=== PATIENT | male | born 1955 | race Two or more races ===

== ENCOUNTER 2020-05-05 00:44 | Inpatient (IN) | payer OTHER ==
[2020-05-05] MEDS ORDERED: NICOTINE POLACRILEX 2 MG GUM BUC PRN (01:45)
[2020-05-05] MEDS ORDERED: ACETAMINOPHEN 325 MG TABLET (FP) PO PRN ×2 (01:45)
[2020-05-05] MEDS ORDERED: MAG HYDROX/AL HYDROX/SIMETH 30 ML UNIT-DOSE CUP PO PRN (01:45)
[2020-05-05] MEDS ORDERED: MAGNESIUM CITRATE 300 ML BOTTLE PO PRN (01:45)
[2020-05-05] MEDS ORDERED: ONDANSETRON *ODT* 4 MG TABLET SL PRN (01:45)
[2020-05-05] MEDS ORDERED: MENTHOL/PHENOL 1 EACH UD MM PRN (01:45)
[2020-05-05] MEDS ORDERED: BISMUTH SUBSALICYLATE 524 MG/30 ML UD PO PRN (01:45)
[2020-05-05] MEDS ORDERED: MAGNESIUM HYDROX 2400MG/30ML ORAL SUSPENSION 30 ML CUP PO PRN (01:45)
[2020-05-05] MEDS ORDERED: METHADONE HCL 10 MG TABLET (FOR DETOX USE ONLY) PO ONE (01:50)
[2020-05-05] MEDS ORDERED: chlordiazePOXIDE HCL 25 MG CAPSULE PO PRN (01:50)
[2020-05-05 01:51] VITALS: BMI 39.3
[2020-05-05] MEDS ORDERED: METHADONE HCL 10 MG TABLET (FOR DETOX USE ONLY) ONE (02:55)
[2020-05-05] MEDS ORDERED: chlordiazePOXIDE HCL 25 MG CAPSULE ONE (05:40)
[2020-05-05] MEDS: chlordiazePOXIDE HCL 25 MG CAPSULE PO SCH ×4 (05:41→22:20)
[2020-05-05] MEDS: METHOCARBAMOL 500 MG TABLET PO PRN (10:29)
[2020-05-05] MEDS: IBUPROFEN 400 MG TABLET (FP) PO PRN (10:29)
[2020-05-05] MEDS: NICOTINE 21 MG/24 HOURS TOPICAL PATCH TD SCH (10:30)
[2020-05-05] MEDS: PRENATAL VITAMINS W/ FOLIC ACID TABLET (FP) PO SCH (10:30)
[2020-05-05] MEDS ORDERED: BENZOCAINE/MENTH/CETYLPYRD CL 1 EACH LOZENGE MM PRN (11:05)
[2020-05-05 13:45] LABS: POTASSIUM 3.4 mmol/L (3.5-5.1)
[2020-05-05 13:46] LABS: HEMATOCRIT 33.9 % (35.4-49); HEMOGLOBIN 10.9 GM/dL (11.7-16.9); MCH 28.6 pg (25.7-33.7); MCHC 32.2 g/dl (32.0-35.9); MEAN CELL VOLUME 88.8 fl (80-96); MEAN PLT VOLUME 8.6 fl (7.5-11.1); PLATELET COUNT 162 K/MM3 (134-434); RBC 3.82 M/mm3 (4.00-5.60); RDW 17.1 % (11.9-15.9); WHITE BLOOD COUNT 5.6 K/mm3 (4.0-10.0)
[2020-05-05 14:05] LABS: ALBUMIN 3.3 g/dl (3.4-5.0); BLOOD UREA NITROGEN 10.3 mg/dL (7-18); CALCIUM 8.6 mg/dL (8.5-10.1)
[2020-05-05 14:08] LABS: BILIRUBIN,TOTAL 0.4 mg/dL (0.2-1); CREATININE 0.8 mg/dL (0.55-1.3)
[2020-05-05 14:09] LABS: TOT PROT 6.1 g/dl (6.4-8.2)
[2020-05-05 14:11] LABS: SYPHILIS W/ RPR CONF NON-REACTIVE (NONREACTIVE)
[2020-05-05 14:40] LABS: HIV INTERPRETATION NEGATIVE (NEGATIVE)
[2020-05-05] MEDS ORDERED: POTASSIUM CHLORIDE ORAL LIQUID 20 MEQ/15 ML PO ONE (15:05)
[2020-05-05] MEDS: cloNIDine HCL 0.1 MG TABLET PO PRN (15:30)
[2020-05-05] MEDS: THIAMINE HCL 100 MG TABLET (FP) PO SCH (22:19)
[2020-05-05] MEDS: AMITRIPTYLINE HCL 25 MG TABLET PO SCH (22:19)
[2020-05-05] MEDS: POTASSIUM CHLORIDE ORAL LIQUID 20 MEQ/15 ML PO SCH (22:20)
[2020-05-05] MEDS: MELATONIN 5 MG TABLETS PO SCH (22:25)
[2020-05-06] MEDS: chlordiazePOXIDE HCL 25 MG CAPSULE PO SCH ×4 (06:35→22:54)
[2020-05-06] MEDS: METHOCARBAMOL 500 MG TABLET PO PRN (06:36)
[2020-05-06] MEDS: IBUPROFEN 400 MG TABLET (FP) PO PRN (06:39)
[2020-05-06] MEDS ORDERED: METHADONE HCL 5 MG TABLET (FOR DETOX USE ONLY) ONE (09:16)
[2020-05-06] MEDS ORDERED: METHADONE HCL 10 MG TABLET (FOR DETOX USE ONLY) ONE (09:17)
[2020-05-06] MEDS ORDERED: METHADONE (DETOX) 20 MG, METHADONE (DETOX) 5 MG PO ONE (10:00)
[2020-05-06] MEDS: PRENATAL VITAMINS W/ FOLIC ACID TABLET (FP) PO SCH (10:33)
[2020-05-06] MEDS: NICOTINE 21 MG/24 HOURS TOPICAL PATCH TD SCH (10:33)
[2020-05-06 11:17] LABS: POTASSIUM 4.4 mmol/L (3.5-5.1)
[2020-05-06 11:22] LABS: ALBUMIN 3.4 g/dl (3.4-5.0); BLOOD UREA NITROGEN 11.8 mg/dL (7-18); CALCIUM 9.1 mg/dL (8.5-10.1)
[2020-05-06 11:26] LABS: CREATININE 0.8 mg/dL (0.55-1.3)
[2020-05-06 11:27] LABS: TOT PROT 6.5 g/dl (6.4-8.2)
[2020-05-06 11:32] LABS: BILIRUBIN,TOTAL 1.2 mg/dL (0.2-1)
[2020-05-06] MEDS: POTASSIUM CHLORIDE TABS 20 MEQ TABLET.ER (FP) PO SCH ×2 (11:41→22:54)
[2020-05-06] MEDS: POTASSIUM CHLORIDE ORAL LIQUID 20 MEQ/15 ML PO SCH (11:43)
[2020-05-06] MEDS: THIAMINE HCL 100 MG TABLET (FP) PO SCH (22:53)
[2020-05-06] MEDS: AMITRIPTYLINE HCL 25 MG TABLET PO SCH (22:53)
[2020-05-06] MEDS: cloNIDine HCL 0.1 MG TABLET PO PRN (22:55)
[2020-05-06] MEDS: MELATONIN 5 MG TABLETS PO SCH (22:55)
[2020-05-07] MEDS ORDERED: chlordiazePOXIDE HCL 10 MG CAPSULE PO PRN
[2020-05-07] MEDS: chlordiazePOXIDE HCL 10 MG CAPSULE PO SCH ×4 (05:23→22:44)
[2020-05-07] MEDS: METHOCARBAMOL 500 MG TABLET PO PRN (05:25)
[2020-05-07] MEDS: IBUPROFEN 400 MG TABLET (FP) PO PRN (05:25)
[2020-05-07] MEDS ORDERED: METHADONE HCL 10 MG TABLET (FOR DETOX USE ONLY) PO ONE (10:00)
[2020-05-07] MEDS: PRENATAL VITAMINS W/ FOLIC ACID TABLET (FP) PO SCH (10:27)
[2020-05-07] MEDS: NICOTINE 21 MG/24 HOURS TOPICAL PATCH TD SCH (10:28)
[2020-05-07] MEDS: cloNIDine HCL 0.1 MG TABLET PO PRN (18:49)
[2020-05-07] MEDS: AMITRIPTYLINE HCL 25 MG TABLET PO SCH (22:44)
[2020-05-07] MEDS: THIAMINE HCL 100 MG TABLET (FP) PO SCH (22:45)
[2020-05-07] MEDS: MELATONIN 5 MG TABLETS PO SCH (22:45)
[2020-05-08] MEDS: METHOCARBAMOL 500 MG TABLET PO PRN ×2 (05:49→22:45)
[2020-05-08] MEDS: chlordiazePOXIDE HCL 10 MG CAPSULE PO SCH ×2 (05:49→18:13)
[2020-05-08] MEDS: IBUPROFEN 400 MG TABLET (FP) PO PRN ×2 (05:50→22:44)
[2020-05-08] MEDS ORDERED: METHADONE HCL 10 MG TABLET (FOR DETOX USE ONLY) ONE (09:32)
[2020-05-08] MEDS ORDERED: METHADONE HCL 5 MG TABLET (FOR DETOX USE ONLY) ONE (09:32)
[2020-05-08] MEDS ORDERED: METHADONE (DETOX) 10 MG, METHADONE (DETOX) 5 MG PO ONE (10:00)
[2020-05-08] MEDS: PRENATAL VITAMINS W/ FOLIC ACID TABLET (FP) PO SCH (10:28)
[2020-05-08] MEDS: NICOTINE 21 MG/24 HOURS TOPICAL PATCH TD SCH (10:28)
[2020-05-08] MEDS: hydrOXYzine PAMOATE 25 MG CAPSULE (FP) PO PRN (10:29)
[2020-05-08] MEDS ORDERED: cloNIDine HCL 0.1 MG TABLET PO PRN (17:19)
[2020-05-08] MEDS: THIAMINE HCL 100 MG TABLET (FP) PO SCH (22:43)
[2020-05-08] MEDS: MELATONIN 5 MG TABLETS PO SCH (22:43)
[2020-05-08] MEDS: AMITRIPTYLINE HCL 25 MG TABLET PO SCH (23:54)
[2020-05-09] MEDS ORDERED: chlordiazePOXIDE HCL 10 MG CAPSULE PO ONE (05:00)
[2020-05-09] MEDS ORDERED: METHADONE HCL 10 MG TABLET (FOR DETOX USE ONLY) PO ONE (10:00)
[2020-05-09] MEDS: NICOTINE 21 MG/24 HOURS TOPICAL PATCH TD SCH (10:39)
[2020-05-09] MEDS: PRENATAL VITAMINS W/ FOLIC ACID TABLET (FP) PO SCH (10:39)
[2020-05-09] MEDS: IBUPROFEN 400 MG TABLET (FP) PO PRN (10:42)
[2020-05-09] MEDS: METHOCARBAMOL 500 MG TABLET PO PRN (10:42)
[2020-05-09] MEDS: hydrOXYzine PAMOATE 25 MG CAPSULE (FP) PO PRN (10:42)
[2020-05-09] MEDS: FERROUS SO4 325 MG TABLET (FP) PO SCH (14:20)
[2020-05-09] MEDS: MELATONIN 5 MG TABLETS PO SCH (22:12)
[2020-05-09] MEDS: THIAMINE HCL 100 MG TABLET (FP) PO SCH (22:12)
[2020-05-09] MEDS: AMITRIPTYLINE HCL 25 MG TABLET PO SCH (22:12)
[2020-05-09 23:10] VITALS: TEMP 96.9
[2020-05-10] MEDS ORDERED: METHADONE HCL 5 MG TABLET (FOR DETOX USE ONLY) PO ONE (06:00)
[2020-05-10 06:13] VITALS: BP 124/64; PULSE 73
[2020-05-10] MEDS: NICOTINE 21 MG/24 HOURS TOPICAL PATCH TD SCH (11:10)
[2020-05-10] MEDS: PRENATAL VITAMINS W/ FOLIC ACID TABLET (FP) PO SCH (11:10)
[2020-05-10] MEDS: FERROUS SO4 325 MG TABLET (FP) PO SCH (11:10)
== END 2020-05-10 11:17 | disposition home or self-care (01) | DRG 897 ==
LOC: YASAS 00:44 → Y6N 07:09
PROVIDERS: ADMIT Allergy & Immunology; ATTEND Allergy & Immunology
PROC: HZ2ZZZZ Detoxification Services for Substance Abuse Treatment (ICD-10-PCS; principal; 2020-05-05)
DX: F11.23 Opioid dependence with withdrawal (principal); F19.282 Other psychoactive substance dependence with psychoactive substance-induced sleep disorder; F10.230 Alcohol dependence with withdrawal, uncomplicated; F17.210 Nicotine dependence, cigarettes, uncomplicated; F19.24 Other psychoactive substance dependence with psychoactive substance-induced mood disorder; F41.9 Anxiety disorder, unspecified; F41.0 Panic disorder [episodic paroxysmal anxiety]; G25.2 Other specified forms of tremor; I10 Essential (primary) hypertension; R56.9 Unspecified convulsions; M54.5 Low back pain; G89.29 Other chronic pain; Z96.653 Presence of artificial knee joint, bilateral; R26.89 Other abnormalities of gait and mobility; Z99.89 Dependence on other enabling machines and devices; E66.9 Obesity, unspecified; Z68.39 Body mass index [BMI] 39.0-39.9, adult; Z88.0 Allergy status to penicillin; Z91.011 Allergy to milk products; Z91.012 Allergy to eggs
CPT/HCPCS: 36415; 80053; 85027; 86780; 87389; 93005; 93010; C9803; J0735; U0003

== ENCOUNTER 2020-06-23 16:44 | Inpatient (IN) | payer OTHER ==
[2020-06-23] MEDS ORDERED: FUROSEMIDE 40 MG/4 ML INJECTABLE VIAL IVPUSH ONE (18:48)
[2020-06-23] MEDS ORDERED: LORazepam 2 MG/ML SDV VIAL IVPUSH ONE (18:48)
[2020-06-23] MEDS ORDERED: FUROSEMIDE 40 MG/4 ML INJECTABLE VIAL ONE (18:52)
[2020-06-23] MEDS ORDERED: LORazepam 2 MG/ML SDV VIAL ONE (18:52)
[2020-06-23 18:57] LABS: BASO % 0.6 % (0-2.0); EOS % 1.2 % (0-4.5); HEMATOCRIT 40.8 % (35.4-49); HEMOGLOBIN 12.9 GM/dL (11.7-16.9); LYMPH % 34.4 % (8-40); MCH 28.9 pg (25.7-33.7); MCHC 31.7 g/dl (32.0-35.9); MEAN CELL VOLUME 91.3 fl (80-96); MEAN PLT VOLUME 9.8 fl (7.5-11.1); MONO % 14.9 % (3.8-10.2); NEUT % 48.9 % (42.8-82.8); PLATELET COUNT 167 K/MM3 (134-434); RBC 4.47 M/mm3 (4.00-5.60); RDW 17.6 % (11.9-15.9); WHITE BLOOD COUNT 4.7 K/mm3 (4.0-10.0)
[2020-06-23 19:06] LABS: INR 0.91 (0.83-1.09); PROTHROMBIN TIME (PATIENT) 11.2 SEC (9.7-13.0)
[2020-06-23 19:08] LABS: ACTIVATED PTT 29.1 SECONDS (25.2-36.5)
[2020-06-23] MEDS ORDERED: cloNIDine HCL 0.1 MG TABLET PO ONE (19:09)
[2020-06-23] MEDS ORDERED: SODIUM CHLORIDE 500 ML IV STA (19:09)
[2020-06-23] MEDS ORDERED: DICYCLOMINE HCL 20 MG TABLET PO ONE (19:09)
[2020-06-23] MEDS ORDERED: ACETAMINOPHEN 500 MG TABLET (FP) PO ONE (19:14)
[2020-06-23 19:17] LABS: CHLORIDE 99 mmol/L (98-107); SODIUM 140 mmol/L (136-145)
[2020-06-23 19:20] LABS: ANION GAP 4 MMOL/L (8-16); BLOOD UREA NITROGEN 11.8 mg/dL (7-18); CALCIUM 9.1 mg/dL (8.5-10.1); CO2 37 mmol/L (21-32); LIPASE 189 U/L (73-393); MAGNESIUM 2.2 mg/dL (1.8-2.4)
[2020-06-23 19:21] LABS: GLUCOSE,RANDOM 86 mg/dL (74-106)
[2020-06-23] MEDS ORDERED: ACETAMINOPHEN 325 MG TABLET (FP) ONE (19:21)
[2020-06-23] MEDS ORDERED: cloNIDine HCL 0.1 MG TABLET ONE (19:21)
[2020-06-23] MEDS ORDERED: DICYCLOMINE HCL 10 MG CAPSULE ONE (19:22)
[2020-06-23 19:23] LABS: CREATININE 0.8 mg/dL (0.55-1.3); SGOT/AST 93 U/L (15-37); SGPT/ALT 129 U/L (13-61)
[2020-06-23 19:25] LABS: BILIRUBIN,TOTAL 0.6 mg/dL (0.2-1); TOT PROT 7.4 g/dl (6.4-8.2)
[2020-06-23 19:26] LABS: ALK PHOS 66 U/L (45-117)
[2020-06-23 19:49] LABS: PLATELET ESTIMATE NORMAL
[2020-06-24] MEDS ORDERED: LORazepam 1 MG TABLET PO PRN (01:57)
[2020-06-24] MEDS ORDERED: METHADONE HCL 10 MG TABLET (FOR DETOX USE ONLY) PO PRN (02:42)
[2020-06-24] MEDS ORDERED: METHADONE HCL 10 MG TABLET ONE (03:20)
[2020-06-24 04:44] VITALS: BMI 36.8
[2020-06-24] MEDS: LORazepam 1 MG TABLET PO SCH ×4 (05:48→22:07)
[2020-06-24 06:44] LABS: ARTERIAL BLD GAS O2 SATURATION 93.4 mmHg (95-98); ARTERIAL BLOOD GAS BASE EXCESS 8.9 mmol/L (-2-2); ARTERIAL BLOOD GAS PO2 67.1 mmHg (80-100); ARTERIAL BLOOD GAS pH 7.426 (7.350-7.450)
[2020-06-24] MEDS: cloNIDine HCL 0.1 MG TABLET PO SCH ×2 (09:59→22:06)
[2020-06-24] MEDS: ENOXAPARIN NA (PORCINE) 40 MG/0.4 ML DISP.SYRIN SQ SCH (09:59)
[2020-06-24 11:59] LABS: BASO % 0.5 % (0-2.0); EOS % 1.9 % (0-4.5); HEMOGLOBIN 12.4 GM/dL (11.7-16.9); LYMPH % 32.1 % (8-40); MCH 29.1 pg (25.7-33.7); MCHC 32.5 g/dl (32.0-35.9); MEAN CELL VOLUME 89.6 fl (80-96); MEAN PLT VOLUME 9.4 fl (7.5-11.1); MONO % 11.9 % (3.8-10.2); NEUT % 53.6 % (42.8-82.8); PLATELET COUNT 136 K/MM3 (134-434); RBC 4.24 M/mm3 (4.00-5.60); RDW 17.1 % (11.9-15.9); WHITE BLOOD COUNT 4.4 K/mm3 (4.0-10.0)
[2020-06-24 12:25] LABS: CALCIUM 8.6 mg/dL (8.5-10.1)
[2020-06-24 12:26] LABS: ALBUMIN 3.5 g/dl (3.4-5.0); BLOOD UREA NITROGEN 13.6 mg/dL (7-18); MAGNESIUM 1.8 mg/dL (1.8-2.4)
[2020-06-24 12:29] LABS: CREATININE 0.8 mg/dL (0.55-1.3); PHOSPHOROUS 3.8 mg/dL (2.5-4.9)
[2020-06-24 12:30] LABS: TOT PROT 6.4 g/dl (6.4-8.2)
[2020-06-24] MEDS ORDERED: POTASSIUM CHLORIDE TABS 20 MEQ TABLET.ER (FP) PO ONE (14:14)
[2020-06-25] MEDS ORDERED: MELATONIN 5 MG TABLETS PO ONE (01:51)
[2020-06-25] MEDS: LORazepam 1 MG TABLET PO SCH ×4 (05:02→22:01)
[2020-06-25 08:16] LABS: HEMATOCRIT 38.9 % (35.4-49); HEMOGLOBIN 12.7 GM/dL (11.7-16.9); MCH 29.5 pg (25.7-33.7); MCHC 32.8 g/dl (32.0-35.9); MEAN PLT VOLUME 9.5 fl (7.5-11.1); PLATELET COUNT 136 K/MM3 (134-434); RBC 4.32 M/mm3 (4.00-5.60); RDW 16.6 % (11.9-15.9); WHITE BLOOD COUNT 5.1 K/mm3 (4.0-10.0)
[2020-06-25 08:34] LABS: ALBUMIN 3.3 g/dl (3.4-5.0); BLOOD UREA NITROGEN 11.9 mg/dL (7-18); CALCIUM 8.9 mg/dL (8.5-10.1)
[2020-06-25 08:37] LABS: CREATININE 0.7 mg/dL (0.55-1.3)
[2020-06-25 08:39] LABS: TOT PROT 6.3 g/dl (6.4-8.2)
[2020-06-25 09:09] LABS: ARTERIAL BLD GAS O2 SATURATION 71.8 mmHg (95-98); ARTERIAL BLOOD GAS BASE EXCESS 8.2 mmol/L (-2-2); ARTERIAL BLOOD GAS pH 7.428 (7.350-7.450)
[2020-06-25 09:17] LABS: ALLENS TEST POSITIVE
[2020-06-25 09:18] LABS: ARTERIAL BLOOD GAS PO2 37.5 mmHg (80-100)
[2020-06-25 10:14] LABS: ARTERIAL BLOOD GAS BASE EXCESS 9.5 mmol/L (-2-2); ARTERIAL BLOOD GAS PO2 79.1 mmHg (80-100); ARTERIAL BLOOD GAS pH 7.455 (7.350-7.450)
[2020-06-25 10:18] LABS: ALLENS TEST POSITIVE
[2020-06-25] MEDS: ENOXAPARIN NA (PORCINE) 40 MG/0.4 ML DISP.SYRIN SQ SCH (10:28)
[2020-06-25] MEDS: cloNIDine HCL 0.1 MG TABLET PO SCH ×2 (10:28→22:04)
[2020-06-25] MEDS ORDERED: MELATONIN 5 MG TABLETS PO SCH (22:00)
[2020-06-26] MEDS ORDERED: LORazepam 0.5 MG TABLET PO PRN
[2020-06-26] MEDS ORDERED: ACETAMINOPHEN 325 MG TABLET (FP) PO ONE (00:38)
[2020-06-26] MEDS ORDERED: MELATONIN 5 MG TABLETS PO ONE ×2 (00:39→23:58)
[2020-06-26] MEDS ORDERED: METHADONE HCL 10 MG TABLET PO ONE ×2 (02:02→22:45)
[2020-06-26] MEDS: LORazepam 0.5 MG TABLET PO SCH ×4 (05:41→22:06)
[2020-06-26] MEDS: cloNIDine HCL 0.1 MG TABLET PO SCH ×2 (10:07→22:06)
[2020-06-26] MEDS: DOCUSATE SODIUM 100 MG CAPSULE (FP) PO PRN (10:08)
[2020-06-26] MEDS: ENOXAPARIN NA (PORCINE) 40 MG/0.4 ML DISP.SYRIN SQ SCH (10:08)
[2020-06-26] MEDS ORDERED: ALBUTEROL SO4 2.5/IPRATROPIUM 0.5 INH SOL 3 ML VIAL.NEB. NEB PRN (11:40)
[2020-06-26] MEDS: ALBUTEROL SO4 2.5/IPRATROPIUM 0.5 INH SOL 3 ML VIAL.NEB. NEB SCH ×2 (13:00→21:11)
[2020-06-26] MEDS ORDERED: METHADONE HCL 10 MG TABLET (FOR DETOX USE ONLY) PO ONE (22:19)
[2020-06-27] MEDS ORDERED: LORazepam 0.5 MG TABLET PO ONE (05:00)
[2020-06-27] MEDS: ALBUTEROL SO4 2.5/IPRATROPIUM 0.5 INH SOL 3 ML VIAL.NEB. NEB SCH (08:06)
[2020-06-27] MEDS: ENOXAPARIN NA (PORCINE) 40 MG/0.4 ML DISP.SYRIN SQ SCH ×2 (09:08→10:39)
[2020-06-27] MEDS: DOCUSATE SODIUM 100 MG CAPSULE (FP) PO PRN (09:09)
[2020-06-27] MEDS: cloNIDine HCL 0.1 MG TABLET PO SCH ×2 (09:09→10:39)
[2020-06-27 09:10] VITALS: BP 136/76; PULSE 67; TEMP 97.9
[2020-06-27 09:52] LABS: ALBUMIN 3.2 g/dl (3.4-5.0)
[2020-06-27 09:53] LABS: BLOOD UREA NITROGEN 11.3 mg/dL (7-18)
[2020-06-27 09:54] LABS: CALCIUM 8.6 mg/dL (8.5-10.1)
[2020-06-27 09:56] LABS: CREATININE 0.8 mg/dL (0.55-1.3)
[2020-06-27 09:57] LABS: BILIRUBIN,TOTAL 0.8 mg/dL (0.2-1); TOT PROT 6.2 g/dl (6.4-8.2)
== END 2020-06-27 14:09 | disposition home or self-care (01) | DRG 205 ==
LOC: JER 16:44 → JERBED 06-24 00:37 → J5S 06-24 04:37
PROVIDERS: ADMIT Internal Medicine; ATTEND Internal Medicine
PROC: 5A0935B Assistance with Respiratory Ventilation, Less than 24 Consecutive Hours, Intermittent Negative Airway Pressure (ICD-10-PCS; principal; 2020-06-26)
DX: E66.2 Morbid (severe) obesity with alveolar hypoventilation (principal); J96.22 Acute and chronic respiratory failure with hypercapnia; J96.01 Acute respiratory failure with hypoxia; I50.32 Chronic diastolic (congestive) heart failure; F10.230 Alcohol dependence with withdrawal, uncomplicated; F11.20 Opioid dependence, uncomplicated; J84.9 Interstitial pulmonary disease, unspecified; Z68.36 Body mass index [BMI] 36.0-36.9, adult; I11.0 Hypertensive heart disease with heart failure; F41.8 Other specified anxiety disorders; K76.0 Fatty (change of) liver, not elsewhere classified; F17.210 Nicotine dependence, cigarettes, uncomplicated; R74.01 Elevation of levels of liver transaminase levels; K59.00 Constipation, unspecified
CPT/HCPCS: 36415; 36600; 71045-TC-FY; 71275-TC; 76705-TC; 80053; 82533; 82550; 82553; 82803; 82962; 83690; 83735; 83835; 83880; 84100; 84244; 84484; 85025; 85027; 85379; 85610; 85730; 93005; 93010; 93306-TC; 93308; 93970; 93970-TC; 94640; 94660; 97116-GP; 97161-GP; 99285-25; C9803; J0735; Q9967; U0003; U0005

== ENCOUNTER 2020-08-02 00:29 | Inpatient (IN) | payer OTHER ==
[2020-08-02 00:47] VITALS: BMI 39.6
[2020-08-02] MEDS ORDERED: MAGNESIUM CITRATE 300 ML BOTTLE PO PRN (00:53)
[2020-08-02] MEDS ORDERED: MAGNESIUM HYDROX 2400MG/30ML ORAL SUSPENSION 30 ML CUP PO PRN (00:53)
[2020-08-02] MEDS ORDERED: NICOTINE POLACRILEX 4 MG GUM BUC PRN (00:53)
[2020-08-02] MEDS ORDERED: METHADONE HCL 10 MG TABLET (FOR DETOX USE ONLY) PO ONE (00:53)
[2020-08-02] MEDS ORDERED: MAG HYDROX/AL HYDROX/SIMETH 30 ML UNIT-DOSE CUP PO PRN (00:53)
[2020-08-02] MEDS ORDERED: ONDANSETRON *ODT* 4 MG TABLET SL PRN (00:53)
[2020-08-02] MEDS ORDERED: BISMUTH SUBSALICYLATE 524 MG/30 ML PO PRN (00:53)
[2020-08-02] MEDS ORDERED: MENTHOL/PHENOL 1 EACH UD MM PRN (00:53)
[2020-08-02] MEDS ORDERED: ACETAMINOPHEN 325 MG TABLET (FP) PO PRN ×2 (00:53)
[2020-08-02] MEDS ORDERED: BISACODYL 5 MG TABLET.DR (FP) PO ONE ×2 (00:57→04:00)
[2020-08-02] MEDS: diazePAM 5 MG TABLET PO PRN ×4 (03:34→23:15)
[2020-08-02] MEDS ORDERED: hydrOXYzine PAMOATE 25 MG CAPSULE (FP) PO SCH (06:00)
[2020-08-02] MEDS: cloNIDine HCL 0.1 MG TABLET PO PRN ×2 (07:31→23:15)
[2020-08-02] MEDS: METHOCARBAMOL 500 MG TABLET PO PRN ×2 (07:31→22:17)
[2020-08-02] MEDS ORDERED: hydrOXYzine PAMOATE 25 MG CAPSULE (FP) PO PRN (09:19)
[2020-08-02] MEDS: HYDROCHLOROTHIAZIDE 25 MG TABLET (FP) PO SCH ×2 (09:57→17:44)
[2020-08-02] MEDS: PRENATAL VITAMINS W/ FOLIC ACID TABLET (FP) PO SCH (09:57)
[2020-08-02] MEDS: BUDESONIDE/FORMETEROL FUMARATE 160/4.5 mcg INHALER IH SCH ×3 (09:57→22:22)
[2020-08-02] MEDS: NICOTINE 21 MG/24 HOURS TOPICAL PATCH TD SCH (09:58)
[2020-08-02 13:39] LABS: HEMATOCRIT 36.3 % (35.4-49); HEMOGLOBIN 11.7 GM/dL (11.7-16.9); MCH 28.8 pg (25.7-33.7); MCHC 32.2 g/dl (32.0-35.9); MEAN CELL VOLUME 89.6 fl (80-96); MEAN PLT VOLUME 9.2 fl (7.5-11.1); PLATELET COUNT 189 K/MM3 (134-434); RBC 4.05 M/mm3 (4.00-5.60); RDW 17.5 % (11.9-15.9); WHITE BLOOD COUNT 4.9 K/mm3 (4.0-10.0)
[2020-08-02 13:53] LABS: ALBUMIN 3.5 g/dl (3.4-5.0); BLOOD UREA NITROGEN 15.5 mg/dL (7-18); CALCIUM 8.7 mg/dL (8.5-10.1)
[2020-08-02 13:54] LABS: BILIRUBIN,TOTAL 0.5 mg/dL (0.2-1)
[2020-08-02 13:55] LABS: TOT PROT 6.8 g/dl (6.4-8.2)
[2020-08-02 13:56] LABS: CREATININE 0.8 mg/dL (0.55-1.3)
[2020-08-02] MEDS: THIAMINE HCL 100 MG TABLET (FP) PO SCH (22:16)
[2020-08-02] MEDS: diazePAM 5 MG TABLET PO SCH (22:17)
[2020-08-02] MEDS: IBUPROFEN 400 MG TABLET (FP) PO PRN (22:18)
[2020-08-03] MEDS: diazePAM 5 MG TABLET PO PRN ×2 (05:32→15:20)
[2020-08-03] MEDS: IBUPROFEN 400 MG TABLET (FP) PO PRN (05:34)
[2020-08-03] MEDS: diazePAM 5 MG TABLET PO SCH ×5 (05:35→22:28)
[2020-08-03] MEDS ORDERED: METHADONE HCL 10 MG TABLET (FOR DETOX USE ONLY) ONE (08:57)
[2020-08-03] MEDS ORDERED: METHADONE HCL 5 MG TABLET (FOR DETOX USE ONLY) ONE (08:57)
[2020-08-03] MEDS ORDERED: METHADONE (DETOX) 20 MG, METHADONE (DETOX) 5 MG PO ONE (10:00)
[2020-08-03] MEDS: HYDROCHLOROTHIAZIDE 25 MG TABLET (FP) PO SCH ×2 (10:45→17:42)
[2020-08-03] MEDS: NICOTINE 21 MG/24 HOURS TOPICAL PATCH TD SCH (10:50)
[2020-08-03] MEDS: PRENATAL VITAMINS W/ FOLIC ACID TABLET (FP) PO SCH (10:51)
[2020-08-03] MEDS: BUDESONIDE/FORMETEROL FUMARATE 160/4.5 mcg INHALER IH SCH ×2 (10:51→22:22)
[2020-08-03] MEDS: METHOCARBAMOL 500 MG TABLET PO PRN (17:42)
[2020-08-03] MEDS ORDERED: hydrOXYzine PAMOATE 25 MG CAPSULE (FP) PO ONE (22:19)
[2020-08-03] MEDS: THIAMINE HCL 100 MG TABLET (FP) PO SCH (22:23)
[2020-08-03] MEDS: cloNIDine HCL 0.1 MG TABLET PO PRN (22:27)
[2020-08-04] MEDS: METHOCARBAMOL 500 MG TABLET PO PRN ×2 (01:58→22:03)
[2020-08-04] MEDS: diazePAM 5 MG TABLET PO SCH ×3 (05:38→22:00)
[2020-08-04] MEDS: IBUPROFEN 400 MG TABLET (FP) PO PRN ×2 (05:40→22:02)
[2020-08-04] MEDS ORDERED: METHADONE HCL 10 MG TABLET (FOR DETOX USE ONLY) PO ONE (10:00)
[2020-08-04] MEDS: PRENATAL VITAMINS W/ FOLIC ACID TABLET (FP) PO SCH (10:19)
[2020-08-04] MEDS: NICOTINE 21 MG/24 HOURS TOPICAL PATCH TD SCH (10:19)
[2020-08-04] MEDS: BUDESONIDE/FORMETEROL FUMARATE 160/4.5 mcg INHALER IH SCH ×2 (10:19→22:01)
[2020-08-04] MEDS: HYDROCHLOROTHIAZIDE 25 MG TABLET (FP) PO SCH ×2 (10:19→18:30)
[2020-08-04] MEDS: diazePAM 5 MG TABLET PO PRN ×2 (10:20→18:32)
[2020-08-04] MEDS: THIAMINE HCL 100 MG TABLET (FP) PO SCH (22:00)
[2020-08-04] MEDS: cloNIDine HCL 0.1 MG TABLET PO PRN (22:06)
[2020-08-05] MEDS: diazePAM 5 MG TABLET PO SCH ×2 (05:36→17:35)
[2020-08-05] MEDS: METHOCARBAMOL 500 MG TABLET PO PRN ×2 (05:37→22:13)
[2020-08-05] MEDS ORDERED: METHADONE HCL 10 MG TABLET (FOR DETOX USE ONLY) ONE (09:14)
[2020-08-05] MEDS ORDERED: METHADONE HCL 5 MG TABLET (FOR DETOX USE ONLY) ONE (09:15)
[2020-08-05] MEDS ORDERED: METHADONE (DETOX) 10 MG, METHADONE (DETOX) 5 MG PO ONE (10:00)
[2020-08-05] MEDS: PRENATAL VITAMINS W/ FOLIC ACID TABLET (FP) PO SCH (10:17)
[2020-08-05] MEDS: HYDROCHLOROTHIAZIDE 25 MG TABLET (FP) PO SCH ×2 (10:18→17:35)
[2020-08-05] MEDS: NICOTINE 21 MG/24 HOURS TOPICAL PATCH TD SCH (10:19)
[2020-08-05] MEDS: IBUPROFEN 400 MG TABLET (FP) PO PRN ×2 (10:19→22:14)
[2020-08-05] MEDS: BUDESONIDE/FORMETEROL FUMARATE 160/4.5 mcg INHALER IH SCH ×2 (10:19→22:12)
[2020-08-05] MEDS: THIAMINE HCL 100 MG TABLET (FP) PO SCH (22:12)
[2020-08-06] MEDS: IBUPROFEN 400 MG TABLET (FP) PO PRN ×2 (03:20→09:41)
[2020-08-06] MEDS: METHOCARBAMOL 500 MG TABLET PO PRN ×2 (03:22→09:41)
[2020-08-06] MEDS ORDERED: diazePAM 5 MG TABLET PO ONE (06:00)
[2020-08-06 06:07] LABS: SARS-CoV-2 NAA Not Detected (Not Detected)
[2020-08-06] MEDS ORDERED: MASKS NR ONE (09:36)
[2020-08-06] MEDS: PRENATAL VITAMINS W/ FOLIC ACID TABLET (FP) PO SCH (09:42)
[2020-08-06] MEDS: HYDROCHLOROTHIAZIDE 25 MG TABLET (FP) PO SCH (09:42)
[2020-08-06] MEDS: NICOTINE 21 MG/24 HOURS TOPICAL PATCH TD SCH (09:42)
[2020-08-06] MEDS: BUDESONIDE/FORMETEROL FUMARATE 160/4.5 mcg INHALER IH SCH (09:42)
[2020-08-06] MEDS ORDERED: METHADONE HCL 10 MG TABLET (FOR DETOX USE ONLY) PO ONE (10:00)
[2020-08-06 19:08] VITALS: BP 144/96; PULSE 96; TEMP 97.5
[2020-08-07] MEDS ORDERED: METHADONE HCL 5 MG TABLET (FOR DETOX USE ONLY) PO ONE (06:00)
== END 2020-08-06 17:41 | disposition home or self-care (01) | DRG 897 ==
LOC: YASAS 00:29 → Y3N 00:49
PROVIDERS: ADMIT Allergy & Immunology; ATTEND Allergy & Immunology
PROC: HZ2ZZZZ Detoxification Services for Substance Abuse Treatment (ICD-10-PCS; principal; 2020-08-02)
DX: F10.230 Alcohol dependence with withdrawal, uncomplicated (principal); G40.509 Epileptic seizures related to external causes, not intractable, without status epilepticus; F11.23 Opioid dependence with withdrawal; F17.210 Nicotine dependence, cigarettes, uncomplicated; F19.24 Other psychoactive substance dependence with psychoactive substance-induced mood disorder; F41.9 Anxiety disorder, unspecified; F32.9 Major depressive disorder, single episode, unspecified; I10 Essential (primary) hypertension; G47.39 Other sleep apnea; M19.90 Unspecified osteoarthritis, unspecified site; M54.5 Low back pain; G89.29 Other chronic pain; Z96.653 Presence of artificial knee joint, bilateral; E66.9 Obesity, unspecified; Z68.37 Body mass index [BMI] 37.0-37.9, adult; Z63.4 Disappearance and death of family member; Z88.8 Allergy status to other drugs, medicaments and biological substances; Z91.011 Allergy to milk products; Z91.012 Allergy to eggs; Z91.013 Allergy to seafood
CPT/HCPCS: 36415; 80053; 85027; 86780; 93005; 93010; C9803; J0735; U0003; U0005

== ENCOUNTER 2020-09-15 19:01 | Inpatient (IN) | payer OTHER ==
[2020-09-15 19:26] VITALS: BMI 33.0
[2020-09-15] MEDS ORDERED: NALOXONE HCL 0.4 MG/ML VIAL IVPUSH ONE (20:07)
[2020-09-15] MEDS ORDERED: SODIUM CHLORIDE 0.9% 500 ML INFUS.BAG IV ONE (20:11)
[2020-09-15] MEDS ORDERED: NALOXONE HCL 0.4 MG/ML VIAL ONE (20:23)
[2020-09-15] MEDS ORDERED: FAMOTIDINE 20 MG/50 ML IVPB 20 MG/50 ML MG IVPB ONE ×2 (20:39→20:42)
[2020-09-15] MEDS ORDERED: ONDANSETRON 4 MG/2 ML VIAL IVPUSH ONE (20:39)
[2020-09-15] MEDS ORDERED: ONDANSETRON 4 MG/2 ML VIAL ONE (20:42)
[2020-09-15 21:08] LABS: BASO % 1.1 % (0-2.0); HEMOGLOBIN 12.3 GM/dL (11.7-16.9); LYMPH % 34.8 % (8-40); MCH 28.3 pg (25.7-33.7); MCHC 32.4 g/dl (32.0-35.9); MEAN CELL VOLUME 87.3 fl (80-96); MEAN PLT VOLUME 9.1 fl (7.5-11.1); MONO % 12.1 % (3.8-10.2); PLATELET COUNT 217 10^3/uL (134-434); RBC 4.35 M/mm3 (4.00-5.60); RDW 17.5 % (11.9-15.9); WHITE BLOOD COUNT 6.8 K/mm3 (4.0-10.0)
[2020-09-15 21:15] LABS: INR 0.99 (0.83-1.09); PROTHROMBIN TIME (PATIENT) 12.2 SEC (9.7-13.0)
[2020-09-15 21:17] LABS: ACTIVATED PTT 25.8 SECONDS (25.2-36.5)
[2020-09-15 21:21] LABS: CHLORIDE 100 mmol/L (98-107); SODIUM 140 mmol/L (136-145)
[2020-09-15 21:23] LABS: ALBUMIN 3.5 g/dl (3.4-5.0); ANION GAP 7 MMOL/L (8-16); BLOOD UREA NITROGEN 11.8 mg/dL (7-18); CALCIUM 8.5 mg/dL (8.5-10.1); CO2 32 mmol/L (21-32); GLUCOSE,RANDOM 86 mg/dL (74-106)
[2020-09-15 21:26] LABS: CREATININE 1.8 mg/dL (0.55-1.3); SGOT/AST 53 U/L (15-37); SGPT/ALT 48 U/L (13-61)
[2020-09-15 21:28] LABS: BILIRUBIN,TOTAL 0.7 mg/dL (0.2-1); TOT PROT 7.2 g/dl (6.4-8.2)
[2020-09-15 21:29] LABS: ALK PHOS 63 U/L (45-117)
[2020-09-16] MEDS ORDERED: FOLIC ACID INJECTION - 1 MG, THIAMINE HCL 100 MG, MULTIVIT INJECTION ADULT 10 ML in SOD... IVPB ONE (04:08)
[2020-09-16] MEDS ORDERED: cloNIDine HCL 0.1 MG TABLET PO PRN (05:04)
[2020-09-16 08:41] LABS: BASO % 0.8 % (0-2.0); EOS % 0.8 % (0-4.5); HEMATOCRIT 39.9 % (35.4-49); HEMOGLOBIN 12.8 GM/dL (11.7-16.9); LYMPH % 16.6 % (8-40); MCH 28.5 pg (25.7-33.7); MEAN PLT VOLUME 8.4 fl (7.5-11.1); MONO % 12.6 % (3.8-10.2); NEUT % 69.2 % (42.8-82.8); PLATELET COUNT 174 10^3/uL (134-434); RBC 4.48 M/mm3 (4.00-5.60); RDW 17.5 % (11.9-15.9); WHITE BLOOD COUNT 7.9 K/mm3 (4.0-10.0)
[2020-09-16] MEDS ORDERED: ONDANSETRON 4 MG/2 ML VIAL IVPUSH ONE (08:50)
[2020-09-16 08:55] LABS: ALBUMIN 3.5 g/dl (3.4-5.0); CALCIUM 8.3 mg/dL (8.5-10.1)
[2020-09-16 08:56] LABS: BLOOD UREA NITROGEN 14.5 mg/dL (7-18)
[2020-09-16 08:57] LABS: MAGNESIUM 1.6 mg/dL (1.8-2.4)
[2020-09-16] MEDS ORDERED: CHLORDIAZEPOXIDE 20 MG, CHLORDIAZEPOXIDE 5 MG PO PRN (08:57)
[2020-09-16] MEDS ORDERED: chlordiazePOXIDE HCL 25 MG CAPSULE PO PRN (08:57)
[2020-09-16 08:59] LABS: CREATININE 1.3 mg/dL (0.55-1.3); PHOSPHOROUS 3.6 mg/dL (2.5-4.9)
[2020-09-16 09:00] LABS: TOT PROT 6.7 g/dl (6.4-8.2)
[2020-09-16] MEDS ORDERED: FOLIC ACID 1 MG TABLET (FP) PO SCH (10:00)
[2020-09-16] MEDS ORDERED: BUDESONIDE/FORMETEROL FUMARATE 160/4.5 mcg INHALER IH SCH (10:00)
[2020-09-16] MEDS ORDERED: MULTIVITAMINS (DAILY MVI) TABLET (FP) PO SCH (10:00)
[2020-09-16] MEDS ORDERED: NICOTINE 21 MG/24 HOURS TOPICAL PATCH TD SCH (10:00)
[2020-09-16] MEDS ORDERED: THIAMINE HCL 100 MG TABLET (FP) PO SCH (10:00)
[2020-09-16] MEDS ORDERED: FOLIC ACID 1 MG TABLET (FP) ONE (10:20)
[2020-09-16] MEDS ORDERED: THIAMINE HCL 100 MG TABLET (FP) ONE (10:20)
[2020-09-16] MEDS ORDERED: MULTIVITAMINS (DAILY MVI) TABLET (FP) ONE (10:20)
[2020-09-16] MEDS ORDERED: chlordiazePOXIDE 5 MG CAPSULE ONE (10:20)
[2020-09-16] MEDS ORDERED: chlordiazePOXIDE HCL 10 MG CAPSULE ONE ×2 (10:36→10:38)
[2020-09-16] MEDS ORDERED: chlordiazePOXIDE HCL 10 MG CAPSULE PO SCH (11:00)
[2020-09-16] MEDS ORDERED: MAGNESIUM OXIDE 400 MG TABLET (FP) PO ONE (11:30)
[2020-09-16] MEDS ORDERED: MAGNESIUM OXIDE 400 MG TABLET (FP) ONE (13:09)
[2020-09-16 13:31] VITALS: TEMP 98.6
[2020-09-16 15:06] VITALS: BP 149/74; PULSE 78
[2020-09-18] MEDS ORDERED: chlordiazePOXIDE HCL 25 MG CAPSULE PO SCH (05:00)
[2020-09-18] MEDS ORDERED: CHLORDIAZEPOXIDE 20 MG, CHLORDIAZEPOXIDE 5 MG PO SCH (05:00)
[2020-09-19] MEDS ORDERED: chlordiazePOXIDE HCL 10 MG CAPSULE PO PRN
[2020-09-19] MEDS ORDERED: chlordiazePOXIDE HCL 10 MG CAPSULE PO SCH (05:00)
[2020-09-20] MEDS ORDERED: chlordiazePOXIDE HCL 10 MG CAPSULE PO SCH (05:00)
[2020-09-21] MEDS ORDERED: chlordiazePOXIDE HCL 10 MG CAPSULE PO ONE (05:00)
== END 2020-09-16 15:08 | disposition other institution (70) | DRG 683 ==
LOC: JER 19:01 → JERBED 09-16 01:11
PROVIDERS: ADMIT Internal Medicine; ATTEND Student in an Organized Health Care Education/Training Program
PROC: HZ2ZZZZ Detoxification Services for Substance Abuse Treatment (ICD-10-PCS; principal; 2020-09-16)
DX: N17.9 Acute kidney failure, unspecified (principal); F10.239 Alcohol dependence with withdrawal, unspecified; I95.1 Orthostatic hypotension; E86.1 Hypovolemia; W19.XXXA Unspecified fall, initial encounter; F11.10 Opioid abuse, uncomplicated; F17.210 Nicotine dependence, cigarettes, uncomplicated; E86.0 Dehydration; E66.9 Obesity, unspecified; Z68.33 Body mass index [BMI] 33.0-33.9, adult
CPT/HCPCS: 36415; 70450-TC; 71045-TC-FY; 72125-TC; 76775-TC; 80053; 82550; 82553; 82607; 82746; 83735; 84100; 84436; 84443; 84484; 85025; 85610; 85730; 86850; 86900; 86901; 93005; 93010; 99285-25; C9803; U0003; U0005

== ENCOUNTER 2020-09-16 15:23 | Inpatient (IN) | payer OTHER ==
[2020-09-16 16:06] VITALS: BMI 39.4
[2020-09-16] MEDS ORDERED: MAGNESIUM CITRATE 300 ML BOTTLE PO PRN (16:35)
[2020-09-16] MEDS ORDERED: MAG HYDROX/AL HYDROX/SIMETH 30 ML UNIT-DOSE CUP PO PRN (16:35)
[2020-09-16] MEDS ORDERED: METHOCARBAMOL 500 MG TABLET PO PRN (16:35)
[2020-09-16] MEDS ORDERED: MAGNESIUM HYDROX 2400MG/30ML ORAL SUSPENSION 30 ML CUP PO PRN (16:35)
[2020-09-16] MEDS ORDERED: cloNIDine HCL 0.1 MG TABLET PO PRN (16:35)
[2020-09-16] MEDS ORDERED: LORazepam 1 MG TABLET PO PRN (16:35)
[2020-09-16] MEDS ORDERED: BISMUTH SUBSALICYLATE 524 MG/30 ML PO PRN (16:35)
[2020-09-16] MEDS ORDERED: ACETAMINOPHEN 325 MG TABLET (FP) PO PRN (16:35)
[2020-09-16] MEDS ORDERED: NICOTINE POLACRILEX 2 MG GUM BUC PRN (16:35)
[2020-09-16] MEDS ORDERED: methaDONE HCL 10 MG TABLET (FOR DETOX USE ONLY) PO ONE (16:35)
[2020-09-16] MEDS ORDERED: LORazepam 2 MG TABLET PO SCH (17:00)
[2020-09-16] MEDS: NICOTINE 21 MG/24 HOURS TOPICAL PATCH TD SCH (19:41)
[2020-09-16] MEDS: hydrOXYzine PAMOATE 25 MG CAPSULE (FP) PO SCH ×2 (19:47→22:10)
[2020-09-16] MEDS: PRENATAL VITAMINS W/ FOLIC ACID TABLET (FP) PO SCH (19:47)
[2020-09-16] MEDS: MENTHOL/PHENOL 1 EACH UD MM PRN (19:48)
[2020-09-16] MEDS: IBUPROFEN 400 MG TABLET (FP) PO PRN (19:50)
[2020-09-16] MEDS: diazePAM 5 MG TABLET PO PRN (20:16)
[2020-09-16] MEDS ORDERED: MELATONIN 5 MG TABLETS PO SCH (22:00)
[2020-09-16] MEDS: THIAMINE HCL 100 MG TABLET (FP) PO SCH (22:10)
[2020-09-16] MEDS: diazePAM 5 MG TABLET PO SCH (22:11)
[2020-09-16] MEDS: BUDESONIDE/FORMETEROL FUMARATE 160/4.5 mcg INHALER IH SCH (22:11)
[2020-09-17] MEDS: diazePAM 5 MG TABLET PO SCH ×4 (05:51→22:21)
[2020-09-17] MEDS: hydrOXYzine PAMOATE 25 MG CAPSULE (FP) PO SCH ×5 (05:51→22:19)
[2020-09-17] MEDS: MENTHOL/PHENOL 1 EACH UD MM PRN ×2 (05:53→13:06)
[2020-09-17] MEDS ORDERED: methaDONE HCL 10 MG TABLET (FOR DETOX USE ONLY) ONE (09:21)
[2020-09-17] MEDS: NICOTINE 21 MG/24 HOURS TOPICAL PATCH TD SCH (10:11)
[2020-09-17] MEDS: BUDESONIDE/FORMETEROL FUMARATE 160/4.5 mcg INHALER IH SCH ×2 (10:12→22:20)
[2020-09-17] MEDS: PRENATAL VITAMINS W/ FOLIC ACID TABLET (FP) PO SCH (10:12)
[2020-09-17] MEDS: IBUPROFEN 400 MG TABLET (FP) PO PRN (10:13)
[2020-09-17] MEDS ORDERED: P-EPHED 60MG/TRIPROLIDI 2.5MG TABLET PO PRN (10:54)
[2020-09-17] MEDS ORDERED: PHENOL 177 ML SPRAY BOTTLE MM PRN (10:55)
[2020-09-17] MEDS: LORATADINE 10 MG TABLET PO SCH (12:58)
[2020-09-17 13:07] LABS: HEMATOCRIT 38.5 % (35.4-49); HEMOGLOBIN 12.2 GM/dL (11.7-16.9); MCH 28.3 pg (25.7-33.7); MCHC 31.7 g/dl (32.0-35.9); MEAN CELL VOLUME 89.3 fl (80-96); MEAN PLT VOLUME 9.6 fl (7.5-11.1); PLATELET COUNT 162 10^3/uL (134-434); RBC 4.32 M/mm3 (4.00-5.60); RDW 17.2 % (11.9-15.9); WHITE BLOOD COUNT 8.2 K/mm3 (4.0-10.0)
[2020-09-17 13:30] LABS: ALBUMIN 3.2 g/dl (3.4-5.0); BLOOD UREA NITROGEN 13.2 mg/dL (7-18); CALCIUM 8.2 mg/dL (8.5-10.1)
[2020-09-17 13:34] LABS: CREATININE 0.8 mg/dL (0.55-1.3)
[2020-09-17 13:35] LABS: TOT PROT 6.2 g/dl (6.4-8.2)
[2020-09-17] MEDS: AMITRIPTYLINE HCL 25 MG TABLET PO SCH (22:19)
[2020-09-17] MEDS: THIAMINE HCL 100 MG TABLET (FP) PO SCH (22:19)
[2020-09-17] MEDS: ONDANSETRON *ODT* 4 MG TABLET SL PRN (22:23)
[2020-09-18] MEDS ORDERED: LIDOCAINE VISCOUS 2% ORAL/TOP 20 ML UNIT-DOSE CUP MM PRN (01:01)
[2020-09-18] MEDS: ACETAMINOPHEN 325 MG TABLET (FP) PO PRN (01:38)
[2020-09-18] MEDS ORDERED: LORazepam 1 MG TABLET PO SCH (05:00)
[2020-09-18] MEDS: hydrOXYzine PAMOATE 25 MG CAPSULE (FP) PO SCH ×5 (06:01→22:05)
[2020-09-18] MEDS: diazePAM 5 MG TABLET PO SCH ×3 (06:01→22:06)
[2020-09-18] MEDS: AMOXICILLIN 500 MG CAPSULE (FP) PO SCH ×3 (06:40→22:05)
[2020-09-18] MEDS ORDERED: methaDONE HCL 10 MG TABLET (FOR DETOX USE ONLY) PO ONE (10:00)
[2020-09-18] MEDS: BUDESONIDE/FORMETEROL FUMARATE 160/4.5 mcg INHALER IH SCH ×2 (10:29→22:06)
[2020-09-18] MEDS: LORATADINE 10 MG TABLET PO SCH (10:30)
[2020-09-18] MEDS: PRENATAL VITAMINS W/ FOLIC ACID TABLET (FP) PO SCH (10:30)
[2020-09-18] MEDS: NICOTINE 21 MG/24 HOURS TOPICAL PATCH TD SCH (10:30)
[2020-09-18] MEDS: diazePAM 5 MG TABLET PO PRN (10:40)
[2020-09-18] MEDS: POTASSIUM CHLORIDE TABS 20 MEQ TABLET.ER (FP) PO SCH ×2 (13:02→17:32)
[2020-09-18] MEDS: AMITRIPTYLINE HCL 25 MG TABLET PO SCH (22:05)
[2020-09-18] MEDS: THIAMINE HCL 100 MG TABLET (FP) PO SCH (22:06)
[2020-09-19] MEDS ORDERED: LORazepam 0.5 MG TABLET PO PRN
[2020-09-19] MEDS ORDERED: LORazepam 0.5 MG TABLET PO SCH (05:00)
[2020-09-19] MEDS: hydrOXYzine PAMOATE 25 MG CAPSULE (FP) PO SCH ×5 (05:43→22:00)
[2020-09-19] MEDS: AMOXICILLIN 500 MG CAPSULE (FP) PO SCH ×3 (05:43→21:59)
[2020-09-19] MEDS: diazePAM 5 MG TABLET PO SCH ×2 (05:43→17:49)
[2020-09-19] MEDS: ONDANSETRON *ODT* 4 MG TABLET SL PRN (08:02)
[2020-09-19] MEDS ORDERED: methaDONE HCL 10 MG TABLET (FOR DETOX USE ONLY) ONE (09:20)
[2020-09-19] MEDS: PRENATAL VITAMINS W/ FOLIC ACID TABLET (FP) PO SCH (10:42)
[2020-09-19] MEDS: POTASSIUM CHLORIDE TABS 20 MEQ TABLET.ER (FP) PO SCH ×2 (10:42→17:49)
[2020-09-19] MEDS: LORATADINE 10 MG TABLET PO SCH (10:42)
[2020-09-19] MEDS: NICOTINE 21 MG/24 HOURS TOPICAL PATCH TD SCH (10:43)
[2020-09-19] MEDS: BUDESONIDE/FORMETEROL FUMARATE 160/4.5 mcg INHALER IH SCH ×2 (10:43→22:00)
[2020-09-19] MEDS: diazePAM 5 MG TABLET PO PRN (10:44)
[2020-09-19] MEDS ORDERED: TRIMETHOBENZAMIDE HCL 200MG/2ML INJ IM PRN (10:50)
[2020-09-19] MEDS ORDERED: DICYCLOMINE HCL 10 MG CAPSULE PO ONE (11:00)
[2020-09-19] MEDS: FAMOTIDINE 20 MG TABLET PO SCH ×2 (11:54→22:00)
[2020-09-19] MEDS: amLODIPine BESYLATE 10 MG TABLET (FP) PO SCH (11:54)
[2020-09-19] MEDS: AMITRIPTYLINE HCL 25 MG TABLET PO SCH (22:00)
[2020-09-19] MEDS: THIAMINE HCL 100 MG TABLET (FP) PO SCH (22:00)
[2020-09-20] MEDS ORDERED: LORazepam 0.5 MG TABLET PO ONE (05:00)
[2020-09-20] MEDS: hydrOXYzine PAMOATE 25 MG CAPSULE (FP) PO SCH ×5 (05:46→22:13)
[2020-09-20] MEDS: AMOXICILLIN 500 MG CAPSULE (FP) PO SCH ×3 (05:46→22:13)
[2020-09-20] MEDS ORDERED: diazePAM 5 MG TABLET PO ONE (06:00)
[2020-09-20] MEDS ORDERED: methaDONE HCL 10 MG TABLET (FOR DETOX USE ONLY) PO ONE (10:00)
[2020-09-20] MEDS: LORATADINE 10 MG TABLET PO SCH (10:09)
[2020-09-20] MEDS: BUDESONIDE/FORMETEROL FUMARATE 160/4.5 mcg INHALER IH SCH ×2 (10:09→22:14)
[2020-09-20] MEDS: NICOTINE 21 MG/24 HOURS TOPICAL PATCH TD SCH (10:09)
[2020-09-20] MEDS: amLODIPine BESYLATE 10 MG TABLET (FP) PO SCH (10:09)
[2020-09-20] MEDS: PRENATAL VITAMINS W/ FOLIC ACID TABLET (FP) PO SCH (10:09)
[2020-09-20] MEDS: FAMOTIDINE 20 MG TABLET PO SCH ×2 (10:09→22:14)
[2020-09-20] MEDS: LISINOPRIL 10 MG TABLET PO SCH (10:11)
[2020-09-20] MEDS: THIAMINE HCL 100 MG TABLET (FP) PO SCH (22:13)
[2020-09-20] MEDS: AMITRIPTYLINE HCL 25 MG TABLET PO SCH (22:14)
[2020-09-20] MEDS: ACETAMINOPHEN 325 MG TABLET (FP) PO PRN (22:17)
[2020-09-21] MEDS: AMOXICILLIN 500 MG CAPSULE (FP) PO SCH (06:07)
[2020-09-21] MEDS: hydrOXYzine PAMOATE 25 MG CAPSULE (FP) PO SCH ×2 (06:09→10:31)
[2020-09-21] MEDS: FAMOTIDINE 20 MG TABLET PO SCH (10:29)
[2020-09-21] MEDS: LORATADINE 10 MG TABLET PO SCH (10:29)
[2020-09-21] MEDS: LISINOPRIL 10 MG TABLET PO SCH (10:29)
[2020-09-21] MEDS: amLODIPine BESYLATE 10 MG TABLET (FP) PO SCH (10:29)
[2020-09-21] MEDS: NICOTINE 21 MG/24 HOURS TOPICAL PATCH TD SCH (10:29)
[2020-09-21] MEDS: PRENATAL VITAMINS W/ FOLIC ACID TABLET (FP) PO SCH (10:29)
[2020-09-21] MEDS: BUDESONIDE/FORMETEROL FUMARATE 160/4.5 mcg INHALER IH SCH (10:30)
[2020-09-21 12:45] VITALS: BP 130/66; PULSE 98; TEMP 97.8
== END 2020-09-21 13:28 | disposition other institution (70) | DRG 897 ==
LOC: YASAS 15:23 → Y6N 16:38
PROVIDERS: ADMIT Allergy & Immunology; ATTEND Allergy & Immunology
PROC: HZ2ZZZZ Detoxification Services for Substance Abuse Treatment (ICD-10-PCS; principal; 2020-09-16)
DX: F11.23 Opioid dependence with withdrawal (principal); F19.282 Other psychoactive substance dependence with psychoactive substance-induced sleep disorder; F10.230 Alcohol dependence with withdrawal, uncomplicated; F17.210 Nicotine dependence, cigarettes, uncomplicated; F19.24 Other psychoactive substance dependence with psychoactive substance-induced mood disorder; F41.1 Generalized anxiety disorder; E87.6 Hypokalemia; G47.30 Sleep apnea, unspecified; M54.5 Low back pain; G89.29 Other chronic pain; E66.9 Obesity, unspecified; Z68.39 Body mass index [BMI] 39.0-39.9, adult; Z96.653 Presence of artificial knee joint, bilateral; Z99.89 Dependence on other enabling machines and devices; Z91.011 Allergy to milk products; Z91.012 Allergy to eggs; Z91.013 Allergy to seafood
CPT/HCPCS: 36415; 80053; 84132; 85027; 86780; C9803; J0735; Q0162; U0003; U0005

== ENCOUNTER 2020-09-21 13:52 | Inpatient (IN) | payer OTHER ==
[2020-09-21] MEDS ORDERED: P-EPHED 60MG/TRIPROLIDI 2.5MG TABLET PO PRN (14:08)
[2020-09-21] MEDS ORDERED: MAGNESIUM CITRATE 300 ML BOTTLE PO PRN (14:08)
[2020-09-21] MEDS ORDERED: MAG HYDROX/AL HYDROX/SIMETH 30 ML UNIT-DOSE CUP PO PRN (14:08)
[2020-09-21] MEDS ORDERED: LOPERAMIDE HCL 2 MG CAPSULE PO PRN (14:08)
[2020-09-21] MEDS ORDERED: ACETAMINOPHEN 325 MG TABLET (FP) PO PRN (14:08)
[2020-09-21] MEDS ORDERED: MENTHOL/PHENOL 1 EACH UD MM PRN (14:08)
[2020-09-21] MEDS ORDERED: MAGNESIUM HYDROX 2400MG/30ML ORAL SUSPENSION 30 ML CUP PO PRN (14:08)
[2020-09-21] MEDS ORDERED: guaiFENesin 200 MG/10 ML 10 ML UNIT-DOSE CUPS PO PRN (14:08)
[2020-09-21] MEDS ORDERED: NICOTINE POLACRILEX 2 MG GUM BUC PRN (14:08)
[2020-09-21] MEDS: AMOXICILLIN 500 MG CAPSULE (FP) PO SCH (21:14)
[2020-09-21] MEDS: hydrOXYzine PAMOATE 25 MG CAPSULE (FP) PO PRN (21:15)
[2020-09-21] MEDS: THIAMINE HCL 100 MG TABLET (FP) PO SCH (21:15)
[2020-09-21] MEDS: IBUPROFEN 400 MG TABLET (FP) PO PRN (21:16)
[2020-09-21] MEDS: BUDESONIDE/FORMETEROL FUMARATE 160/4.5 mcg INHALER IH SCH (21:17)
[2020-09-21] MEDS ORDERED: diphenhydrAMINE HCL 25 MG CAPSULE (FP) PO SCH (22:00)
[2020-09-21] MEDS ORDERED: MELATONIN 5 MG TABLETS PO SCH (22:00)
[2020-09-21] MEDS: AMITRIPTYLINE HCL 25 MG TABLET PO SCH (23:09)
[2020-09-22] MEDS: AMOXICILLIN 500 MG CAPSULE (FP) PO SCH ×3 (06:47→21:44)
[2020-09-22] MEDS: PRENATAL VITAMINS W/ FOLIC ACID TABLET (FP) PO SCH (09:59)
[2020-09-22] MEDS: amLODIPine BESYLATE 10 MG TABLET (FP) PO SCH (09:59)
[2020-09-22] MEDS: LISINOPRIL 10 MG TABLET PO SCH (09:59)
[2020-09-22] MEDS: BUDESONIDE/FORMETEROL FUMARATE 160/4.5 mcg INHALER IH SCH ×2 (10:00→21:44)
[2020-09-22] MEDS ORDERED: NICOTINE 7 MG/24 HOURS TOPICAL PATCH TD SCH (10:00)
[2020-09-22] MEDS: NICOTINE 21 MG/24 HOURS TOPICAL PATCH TD SCH (10:00)
[2020-09-22] MEDS: AMITRIPTYLINE HCL 25 MG TABLET PO SCH (21:44)
[2020-09-22] MEDS: THIAMINE HCL 100 MG TABLET (FP) PO SCH (21:46)
[2020-09-22] MEDS: hydrOXYzine PAMOATE 25 MG CAPSULE (FP) PO PRN (21:46)
[2020-09-23] MEDS: AMOXICILLIN 500 MG CAPSULE (FP) PO SCH ×3 (06:25→21:05)
[2020-09-23] MEDS ORDERED: PT OWN MED DRAWER 7, Y5N ONE (08:45)
[2020-09-23] MEDS: IBUPROFEN 400 MG TABLET (FP) PO PRN ×2 (08:46→21:07)
[2020-09-23] MEDS: PRENATAL VITAMINS W/ FOLIC ACID TABLET (FP) PO SCH (09:40)
[2020-09-23] MEDS: NICOTINE 21 MG/24 HOURS TOPICAL PATCH TD SCH (09:40)
[2020-09-23] MEDS: amLODIPine BESYLATE 10 MG TABLET (FP) PO SCH (09:40)
[2020-09-23] MEDS: LISINOPRIL 10 MG TABLET PO SCH (09:40)
[2020-09-23] MEDS: hydrOXYzine PAMOATE 25 MG CAPSULE (FP) PO PRN ×2 (09:41→21:07)
[2020-09-23] MEDS: BUDESONIDE/FORMETEROL FUMARATE 160/4.5 mcg INHALER IH SCH ×2 (09:41→21:08)
[2020-09-23] MEDS: AMITRIPTYLINE HCL 25 MG TABLET PO SCH (21:05)
[2020-09-23] MEDS: THIAMINE HCL 100 MG TABLET (FP) PO SCH (21:05)
[2020-09-24] MEDS: AMOXICILLIN 500 MG CAPSULE (FP) PO SCH ×3 (06:12→21:53)
[2020-09-24] MEDS: LISINOPRIL 10 MG TABLET PO SCH (09:42)
[2020-09-24] MEDS: PRENATAL VITAMINS W/ FOLIC ACID TABLET (FP) PO SCH (09:42)
[2020-09-24] MEDS: amLODIPine BESYLATE 10 MG TABLET (FP) PO SCH (09:42)
[2020-09-24] MEDS: NICOTINE 21 MG/24 HOURS TOPICAL PATCH TD SCH (09:43)
[2020-09-24] MEDS: BUDESONIDE/FORMETEROL FUMARATE 160/4.5 mcg INHALER IH SCH ×2 (10:19→21:53)
[2020-09-24] MEDS: AMITRIPTYLINE HCL 25 MG TABLET PO SCH (21:53)
[2020-09-24] MEDS: THIAMINE HCL 100 MG TABLET (FP) PO SCH (21:53)
[2020-09-24] MEDS: IBUPROFEN 400 MG TABLET (FP) PO PRN (21:53)
[2020-09-24] MEDS: hydrOXYzine PAMOATE 25 MG CAPSULE (FP) PO PRN (21:54)
[2020-09-25] MEDS: AMOXICILLIN 500 MG CAPSULE (FP) PO SCH ×3 (06:31→21:09)
[2020-09-25] MEDS: amLODIPine BESYLATE 10 MG TABLET (FP) PO SCH (09:52)
[2020-09-25] MEDS: PRENATAL VITAMINS W/ FOLIC ACID TABLET (FP) PO SCH (09:52)
[2020-09-25] MEDS: LISINOPRIL 10 MG TABLET PO SCH (09:52)
[2020-09-25] MEDS: BUDESONIDE/FORMETEROL FUMARATE 160/4.5 mcg INHALER IH SCH ×2 (09:53→21:10)
[2020-09-25] MEDS: NICOTINE 21 MG/24 HOURS TOPICAL PATCH TD SCH (09:53)
[2020-09-25] MEDS: THIAMINE HCL 100 MG TABLET (FP) PO SCH (21:09)
[2020-09-25] MEDS: AMITRIPTYLINE HCL 25 MG TABLET PO SCH (21:10)
[2020-09-25] MEDS: hydrOXYzine PAMOATE 25 MG CAPSULE (FP) PO PRN (21:10)
[2020-09-26] MEDS: AMOXICILLIN 500 MG CAPSULE (FP) PO SCH (06:44)
[2020-09-26] MEDS ORDERED: COLLOIDAL OATMEAL 1 BAR EACH TP PRN (08:58)
[2020-09-26] MEDS: LISINOPRIL 10 MG TABLET PO SCH (10:10)
[2020-09-26] MEDS: PRENATAL VITAMINS W/ FOLIC ACID TABLET (FP) PO SCH (10:10)
[2020-09-26] MEDS: amLODIPine BESYLATE 10 MG TABLET (FP) PO SCH (10:10)
[2020-09-26] MEDS: NICOTINE 21 MG/24 HOURS TOPICAL PATCH TD SCH (10:11)
[2020-09-26] MEDS: BUDESONIDE/FORMETEROL FUMARATE 160/4.5 mcg INHALER IH SCH (10:12)
[2020-09-26 18:16] VITALS: BP 148/87; PULSE 68; TEMP 98.9
== END 2020-09-26 18:25 | disposition left against medical advice (07) | DRG 894 ==
LOC: YASAS 13:52 → Y3W 13:53
PROVIDERS: ADMIT Allergy & Immunology; ATTEND Allergy & Immunology
PROC: HZ42ZZZ Group Counseling for Substance Abuse Treatment, Cognitive-Behavioral (ICD-10-PCS; principal; 2020-09-21)
DX: F11.20 Opioid dependence, uncomplicated (principal); F10.20 Alcohol dependence, uncomplicated; F17.210 Nicotine dependence, cigarettes, uncomplicated; Z88.8 Allergy status to other drugs, medicaments and biological substances; Z91.011 Allergy to milk products; Z91.012 Allergy to eggs; Z91.013 Allergy to seafood

== ENCOUNTER 2020-11-18 13:49 | Inpatient (IN) | payer OTHER ==
[2020-11-18] MEDS ORDERED: LORazepam 1 MG TABLET PO ONE (15:03)
[2020-11-18] MEDS ORDERED: cloNIDine HCL 0.1 MG TABLET PO ONE (15:09)
[2020-11-18] MEDS ORDERED: LORazepam 1 MG TABLET ONE (15:11)
[2020-11-18] MEDS ORDERED: cloNIDine HCL 0.1 MG TABLET ONE (15:53)
[2020-11-18 16:41] LABS: BASO % 0.8 % (0-2.0); EOS % 2.1 % (0-4.5); HEMATOCRIT 35.4 % (35.4-49); HEMOGLOBIN 11.7 GM/dL (11.7-16.9); LYMPH % 40.7 % (8-40); MCH 28.4 pg (25.7-33.7); MCHC 32.9 g/dl (32.0-35.9); MEAN CELL VOLUME 86.3 fl (80-96); MEAN PLT VOLUME 8.7 fl (7.5-11.1); MONO % 10.3 % (3.8-10.2); NEUT % 46.1 % (42.8-82.8); PLATELET COUNT 217 10^3/uL (134-434); RDW 16.4 % (11.9-15.9)
[2020-11-18 17:03] LABS: CHLORIDE 104 mmol/L (98-107); SODIUM 142 mmol/L (136-145)
[2020-11-18 17:05] LABS: CALCIUM 8.2 mg/dL (8.5-10.1)
[2020-11-18 17:06] LABS: ALBUMIN 3.5 g/dl (3.4-5.0); BLOOD UREA NITROGEN 16.9 mg/dL (7-18); CO2 29 mmol/L (21-32); GLUCOSE,RANDOM 96 mg/dL (74-106); MAGNESIUM 2.1 mg/dL (1.8-2.4)
[2020-11-18 17:09] LABS: CREATININE 0.8 mg/dL (0.55-1.3); SGOT/AST 30 U/L (15-37); SGPT/ALT 41 U/L (13-61)
[2020-11-18 17:11] LABS: ALK PHOS 68 U/L (45-117)
[2020-11-18 17:14] LABS: N-TERMINAL BNP 100.8 pg/ml (5-125)
[2020-11-18 17:22] LABS: INR 0.9 (0.83-1.09); PROTHROMBIN TIME (PATIENT) 10.9 SEC (9.7-13.0)
[2020-11-18 17:25] LABS: ACTIVATED PTT 26.7 SECONDS (25.2-36.5)
[2020-11-18 17:30] LABS: ANION GAP 9 MMOL/L (8-16); BILIRUBIN,TOTAL 0.3 mg/dL (0.2-1)
[2020-11-18] MEDS ORDERED: LORazepam 2 MG/ML SDV VIAL IVPUSH ONE (21:03)
[2020-11-18] MEDS ORDERED: LORazepam 2 MG/ML SDV VIAL ONE (21:16)
[2020-11-18] MEDS ORDERED: cloNIDine HCL 0.1 MG TABLET PO PRN (22:35)
[2020-11-18] MEDS ORDERED: clonazePAM 0.5 MG TABLET PO PRN (22:35)
[2020-11-18] MEDS ORDERED: chlordiazePOXIDE HCL 25 MG CAPSULE PO PRN (22:35)
[2020-11-18] MEDS ORDERED: methaDONE HCL 10 MG TABLET PO ONE (22:35)
[2020-11-18] MEDS ORDERED: methaDONE HCL 10 MG TABLET ONE (22:51)
[2020-11-18] MEDS ORDERED: LORazepam 1 MG TABLET PO PRN (22:54)
[2020-11-18] MEDS ORDERED: chlordiazePOXIDE HCL 25 MG CAPSULE PO SCH (23:00)
[2020-11-18] MEDS ORDERED: FUROSEMIDE 40 MG/4 ML INJECTABLE VIAL IVPUSH ONE (23:56)
[2020-11-19] MEDS ORDERED: PANTOPRAZOLE 40 MG TABLET ONE (00:15)
[2020-11-19] MEDS ORDERED: FUROSEMIDE 40 MG/4 ML INJECTABLE VIAL ONE (00:15)
[2020-11-19] MEDS: PANTOPRAZOLE 40 MG TABLET PO SCH ×3 (00:28→21:05)
[2020-11-19 01:56] LABS: URINE APPEARANCE CLEAR; URINE BILIRUBIN NEGATIVE (NEGATIVE); URINE COLOR YELLOW; URINE GLUCOSE (UA) NEGATIVE (NEGATIVE); URINE KETONE NEGATIVE (NEGATIVE); URINE LEUK ESTERASE NEGATIVE (NEGATIVE); URINE NITRITE NEGATIVE (NEGATIVE); URINE PROTEIN NEGATIVE (NEGATIVE); URINE UROBILINOGEN 0.2 mg/dL (0.2-1.0)
[2020-11-19 03:24] VITALS: BMI 35.6
[2020-11-19] MEDS ORDERED: chlordiazePOXIDE HCL 25 MG CAPSULE PO SCH (03:30)
[2020-11-19] MEDS: LORazepam 1 MG TABLET PO SCH ×4 (05:03→22:58)
[2020-11-19] MEDS ORDERED: BUDESONIDE/FORMETEROL FUMARATE 80/4.5 mcg INHALER IH ONE (06:02)
[2020-11-19] MEDS: BUDESONIDE/FORMETEROL FUMARATE 80/4.5 mcg INHALER IH SCH ×2 (06:42→21:48)
[2020-11-19] MEDS: ALBUTEROL SO4 2.5/IPRATROPIUM 0.5 INH SOL 3 ML VIAL.NEB. NEB SCH ×3 (07:50→20:10)
[2020-11-19 08:17] LABS: HEMATOCRIT 35.4 % (35.4-49); HEMOGLOBIN 11.6 GM/dL (11.7-16.9); MCH 28.5 pg (25.7-33.7); MCHC 32.8 g/dl (32.0-35.9); MEAN CELL VOLUME 86.7 fl (80-96); MEAN PLT VOLUME 8.8 fl (7.5-11.1); PLATELET COUNT 204 10^3/uL (134-434); RBC 4.09 M/mm3 (4.00-5.60); RDW 16.1 % (11.9-15.9); WHITE BLOOD COUNT 5.8 K/mm3 (4.0-10.0)
[2020-11-19 08:37] LABS: ALBUMIN 3.4 g/dl (3.4-5.0); CALCIUM 8.4 mg/dL (8.5-10.1)
[2020-11-19 08:38] LABS: BLOOD UREA NITROGEN 17.6 mg/dL (7-18); MAGNESIUM 1.9 mg/dL (1.8-2.4)
[2020-11-19 08:40] LABS: CREATININE 0.8 mg/dL (0.55-1.3)
[2020-11-19 08:41] LABS: BILIRUBIN,TOTAL 0.7 mg/dL (0.2-1); PHOSPHOROUS 3.4 mg/dL (2.5-4.9); TOT PROT 6.5 g/dl (6.4-8.2)
[2020-11-19] MEDS: ENOXAPARIN NA (PORCINE) 40 MG/0.4 ML DISP.SYRIN SQ SCH (10:40)
[2020-11-19] MEDS: FOLIC ACID 1 MG TABLET (FP) PO SCH (10:40)
[2020-11-19] MEDS: LISINOPRIL 10 MG TABLET PO SCH (10:40)
[2020-11-19] MEDS: NICOTINE 14 MG/24 HOURS TOPICAL PATCH TD SCH ×2 (10:40→10:50)
[2020-11-19] MEDS: THIAMINE HCL 100 MG TABLET (FP) PO SCH (10:40)
[2020-11-19] MEDS: methylPREDNISolone NA SUCC 40 MG/1 ML VIAL IVPUSH SCH (10:41)
[2020-11-19] MEDS: POLYETHYLENE GLYCOL (HEALTHYLAX) 3350 17 GM PACKET PO SCH (10:43)
[2020-11-19] MEDS ORDERED: methaDONE HCL 10 MG TABLET ONE (10:52)
[2020-11-19] MEDS ORDERED: ACETAMINOPHEN 325 MG TABLET (FP) PO ONE (20:10)
[2020-11-20] MEDS ORDERED: MELATONIN 5 MG TABLETS PO ONE (00:57)
[2020-11-20] MEDS ORDERED: traZODone HCL 50 MG TABLET (FP) PO ONE (02:35)
[2020-11-20] MEDS ORDERED: chlordiazePOXIDE HCL 25 MG CAPSULE PO SCH (05:00)
[2020-11-20] MEDS: LORazepam 1 MG TABLET PO SCH ×4 (05:18→22:55)
[2020-11-20] MEDS: ALBUTEROL SO4 2.5/IPRATROPIUM 0.5 INH SOL 3 ML VIAL.NEB. NEB SCH ×3 (07:25→19:58)
[2020-11-20] MEDS ORDERED: methaDONE HCL 10 MG TABLET PO ONE (10:00)
[2020-11-20] MEDS: methylPREDNISolone NA SUCC 40 MG/1 ML VIAL IVPUSH SCH (10:18)
[2020-11-20] MEDS: ENOXAPARIN NA (PORCINE) 40 MG/0.4 ML DISP.SYRIN SQ SCH (10:18)
[2020-11-20] MEDS: POLYETHYLENE GLYCOL (HEALTHYLAX) 3350 17 GM PACKET PO SCH (10:18)
[2020-11-20] MEDS: NICOTINE 14 MG/24 HOURS TOPICAL PATCH TD SCH ×2 (10:19→10:34)
[2020-11-20] MEDS: PANTOPRAZOLE 40 MG TABLET PO SCH ×2 (10:19→21:20)
[2020-11-20] MEDS: THIAMINE HCL 100 MG TABLET (FP) PO SCH (10:19)
[2020-11-20] MEDS: FOLIC ACID 1 MG TABLET (FP) PO SCH (10:19)
[2020-11-20] MEDS: LISINOPRIL 10 MG TABLET PO SCH (10:19)
[2020-11-20] MEDS: BUDESONIDE/FORMETEROL FUMARATE 80/4.5 mcg INHALER IH SCH ×2 (10:25→21:20)
[2020-11-21] MEDS ORDERED: LORazepam 0.5 MG TABLET PO PRN
[2020-11-21] MEDS ORDERED: chlordiazePOXIDE HCL 10 MG CAPSULE PO PRN
[2020-11-21] MEDS ORDERED: chlordiazePOXIDE HCL 10 MG CAPSULE PO SCH (05:00)
[2020-11-21] MEDS: LORazepam 0.5 MG TABLET PO SCH ×3 (05:40→18:33)
[2020-11-21] MEDS: ALBUTEROL SO4 2.5/IPRATROPIUM 0.5 INH SOL 3 ML VIAL.NEB. NEB SCH ×2 (07:30→14:36)
[2020-11-21] MEDS ORDERED: methaDONE HCL 10 MG TABLET ONE (10:33)
[2020-11-21] MEDS ORDERED: PT OWN MED DRAWER 7, Y5N ONE (10:35)
[2020-11-21 10:51] VITALS: TEMP 98.4
[2020-11-21] MEDS: ENOXAPARIN NA (PORCINE) 40 MG/0.4 ML DISP.SYRIN SQ SCH (10:52)
[2020-11-21] MEDS: methylPREDNISolone NA SUCC 40 MG/1 ML VIAL IVPUSH SCH (10:52)
[2020-11-21] MEDS: POLYETHYLENE GLYCOL (HEALTHYLAX) 3350 17 GM PACKET PO SCH (10:52)
[2020-11-21] MEDS: THIAMINE HCL 100 MG TABLET (FP) PO SCH (10:53)
[2020-11-21] MEDS: PANTOPRAZOLE 40 MG TABLET PO SCH (10:54)
[2020-11-21] MEDS: FOLIC ACID 1 MG TABLET (FP) PO SCH (10:54)
[2020-11-21] MEDS: LISINOPRIL 10 MG TABLET PO SCH (10:54)
[2020-11-21] MEDS: BUDESONIDE/FORMETEROL FUMARATE 80/4.5 mcg INHALER IH SCH (10:55)
[2020-11-21] MEDS: NICOTINE 14 MG/24 HOURS TOPICAL PATCH TD SCH (10:55)
[2020-11-21 13:46] VITALS: BP 155/75; PULSE 73
[2020-11-22] MEDS ORDERED: chlordiazePOXIDE HCL 10 MG CAPSULE PO SCH (05:00)
[2020-11-22] MEDS ORDERED: LORazepam 0.5 MG TABLET PO ONE (05:00)
[2020-11-22] MEDS ORDERED: methaDONE HCL 10 MG TABLET PO ONE (10:00)
[2020-11-23] MEDS ORDERED: chlordiazePOXIDE HCL 10 MG CAPSULE PO ONE (05:00)
== END 2020-11-21 19:01 | disposition left against medical advice (07) | DRG 191 ==
LOC: JER 13:49 → JERBED 21:12 → J8W 11-19 02:38
PROVIDERS: ADMIT Internal Medicine
DX: J44.1 Chronic obstructive pulmonary disease with (acute) exacerbation (principal); F11.23 Opioid dependence with withdrawal; E66.2 Morbid (severe) obesity with alveolar hypoventilation; F10.239 Alcohol dependence with withdrawal, unspecified; R09.02 Hypoxemia; I10 Essential (primary) hypertension; I25.10 Atherosclerotic heart disease of native coronary artery without angina pectoris; E78.5 Hyperlipidemia, unspecified; F17.210 Nicotine dependence, cigarettes, uncomplicated
CPT/HCPCS: 36415; 71046-TC-FY; 71275-TC; 80053; 81003; 82550; 82553; 83690; 83735; 83880; 84100; 84484; 85025; 85027; 85379; 85610; 85730; 87086; 93005; 93010; 93971-TC; 94640; 94761; 99285-25; C9803; J0735; Q9967; U0003; U0005

== ENCOUNTER 2021-02-02 23:18 | Inpatient (IN) | payer OTHER ==
[2021-02-03 00:39] VITALS: BMI 39.5
[2021-02-03] MEDS ORDERED: MAGNESIUM HYDROX 2400MG/30ML ORAL SUSPENSION 30 ML CUP PO PRN (01:03)
[2021-02-03] MEDS ORDERED: ACETAMINOPHEN 325 MG TABLET (FP) PO PRN ×2 (01:03)
[2021-02-03] MEDS ORDERED: MENTHOL/PHENOL 1 EACH UD MM PRN (01:03)
[2021-02-03] MEDS ORDERED: NICOTINE 10 MG CARTRIDGE (INHALER) IH PRN (01:03)
[2021-02-03] MEDS ORDERED: BISMUTH SUBSALICYLATE 524 MG/30 ML PO PRN (01:03)
[2021-02-03] MEDS ORDERED: ONDANSETRON *ODT* 4 MG TABLET SL PRN (01:03)
[2021-02-03] MEDS ORDERED: MAG HYDROX/AL HYDROX/SIMETH 30 ML UNIT-DOSE CUP PO PRN (01:03)
[2021-02-03] MEDS ORDERED: IBUPROFEN 400 MG TABLET (FP) PO PRN (01:03)
[2021-02-03] MEDS ORDERED: MAGNESIUM CITRATE 300 ML BOTTLE PO PRN (01:03)
[2021-02-03] MEDS ORDERED: diazePAM 5 MG TABLET PO PRN (01:05)
[2021-02-03] MEDS: hydrOXYzine PAMOATE 25 MG CAPSULE (FP) PO SCH ×5 (05:09→22:22)
[2021-02-03] MEDS ORDERED: cloNIDine HCL 0.1 MG TABLET PO PRN (09:08)
[2021-02-03] MEDS ORDERED: methaDONE HCL 10 MG TABLET (FOR DETOX USE ONLY) PO ONE (09:08)
[2021-02-03] MEDS: PRENATAL VITAMINS W/ FOLIC ACID TABLET (FP) PO SCH (09:42)
[2021-02-03] MEDS: LISINOPRIL 10 MG TABLET PO SCH (09:42)
[2021-02-03] MEDS ORDERED: ALBUTEROL SO4 HFA INHALER IH PRN (09:42)
[2021-02-03] MEDS: diazePAM 5 MG TABLET PO SCH ×3 (10:34→22:22)
[2021-02-03] MEDS: amLODIPine BESYLATE 10 MG TABLET (FP) PO SCH (10:46)
[2021-02-03] MEDS: BUDESONIDE/FORMETEROL FUMARATE 160/4.5 mcg INHALER IH SCH ×2 (10:46→22:22)
[2021-02-03] MEDS ORDERED: LACTULOSE 20 GM/30 ML UDC (FOR ORAL USE ONLY) PO ONE (11:17)
[2021-02-03] MEDS ORDERED: SODIUM PHOSPHATE/NA BIPHOS 133 ML ENEMA RC ONE (11:51)
[2021-02-03] MEDS ORDERED: MELATONIN 5 MG TABLETS PO SCH (22:00)
[2021-02-03] MEDS: THIAMINE HCL 100 MG TABLET (FP) PO SCH (22:22)
[2021-02-03] MEDS: AMITRIPTYLINE HCL 25 MG TABLET PO SCH (22:22)
[2021-02-04] MEDS: diazePAM 5 MG TABLET PO SCH ×4 (05:13→22:20)
[2021-02-04] MEDS: hydrOXYzine PAMOATE 25 MG CAPSULE (FP) PO SCH ×5 (05:14→22:18)
[2021-02-04] MEDS ORDERED: methaDONE HCL 10 MG TABLET (FOR DETOX USE ONLY) ONE (09:36)
[2021-02-04] MEDS: amLODIPine BESYLATE 10 MG TABLET (FP) PO SCH (10:44)
[2021-02-04] MEDS: PRENATAL VITAMINS W/ FOLIC ACID TABLET (FP) PO SCH (10:44)
[2021-02-04] MEDS: BUDESONIDE/FORMETEROL FUMARATE 160/4.5 mcg INHALER IH SCH ×2 (10:45→22:19)
[2021-02-04] MEDS: LISINOPRIL 10 MG TABLET PO SCH (10:45)
[2021-02-04 11:09] LABS: HEMATOCRIT 34.5 % (35.4-49); MCH 28.5 pg (25.7-33.7); MEAN CELL VOLUME 89.1 fl (80-96); MEAN PLT VOLUME 8.9 fl (7.5-11.1); PLATELET COUNT 254 10^3/uL (134-434); RBC 3.87 M/mm3 (4.00-5.60); RDW 16.4 % (11.9-15.9)
[2021-02-04 13:51] LABS: ALBUMIN 3.1 g/dl (3.4-5.0); BILIRUBIN,TOTAL 0.4 mg/dL (0.2-1); BLOOD UREA NITROGEN 15.1 mg/dL (7-18); CALCIUM 8.4 mg/dL (8.5-10.1); CREATININE 0.7 mg/dL (0.55-1.3); TOT PROT 6.2 g/dl (6.4-8.2)
[2021-02-04] MEDS: AMITRIPTYLINE HCL 25 MG TABLET PO SCH (22:18)
[2021-02-04] MEDS: THIAMINE HCL 100 MG TABLET (FP) PO SCH (22:18)
[2021-02-05] MEDS: hydrOXYzine PAMOATE 25 MG CAPSULE (FP) PO SCH ×5 (05:29→22:11)
[2021-02-05] MEDS: diazePAM 5 MG TABLET PO SCH ×3 (05:30→22:13)
[2021-02-05] MEDS: METHOCARBAMOL 500 MG TABLET PO PRN ×2 (05:30→17:54)
[2021-02-05] MEDS ORDERED: methaDONE HCL 10 MG TABLET (FOR DETOX USE ONLY) PO ONE (10:00)
[2021-02-05] MEDS: PRENATAL VITAMINS W/ FOLIC ACID TABLET (FP) PO SCH (10:17)
[2021-02-05] MEDS: BUDESONIDE/FORMETEROL FUMARATE 160/4.5 mcg INHALER IH SCH ×2 (10:18→22:13)
[2021-02-05] MEDS: LISINOPRIL 10 MG TABLET PO SCH (10:18)
[2021-02-05] MEDS: amLODIPine BESYLATE 10 MG TABLET (FP) PO SCH (10:18)
[2021-02-05] MEDS: diazePAM 5 MG TABLET PO PRN ×2 (10:19→17:53)
[2021-02-05 19:21] LABS: HIV INTERPRETATION NEGATIVE (NEGATIVE)
[2021-02-05] MEDS: AMITRIPTYLINE HCL 25 MG TABLET PO SCH (22:11)
[2021-02-05] MEDS: THIAMINE HCL 100 MG TABLET (FP) PO SCH (22:11)
[2021-02-06] MEDS: hydrOXYzine PAMOATE 25 MG CAPSULE (FP) PO SCH ×5 (05:35→22:44)
[2021-02-06] MEDS: diazePAM 5 MG TABLET PO SCH ×2 (05:35→17:32)
[2021-02-06] MEDS: METHOCARBAMOL 500 MG TABLET PO PRN ×2 (05:36→17:33)
[2021-02-06] MEDS ORDERED: methaDONE HCL 10 MG TABLET (FOR DETOX USE ONLY) ONE (08:56)
[2021-02-06] MEDS: LISINOPRIL 10 MG TABLET PO SCH (11:22)
[2021-02-06] MEDS: amLODIPine BESYLATE 10 MG TABLET (FP) PO SCH (11:22)
[2021-02-06] MEDS: PRENATAL VITAMINS W/ FOLIC ACID TABLET (FP) PO SCH (11:23)
[2021-02-06] MEDS: BUDESONIDE/FORMETEROL FUMARATE 160/4.5 mcg INHALER IH SCH ×2 (11:25→22:48)
[2021-02-06] MEDS: AMITRIPTYLINE HCL 25 MG TABLET PO SCH (22:44)
[2021-02-06] MEDS: THIAMINE HCL 100 MG TABLET (FP) PO SCH (22:44)
[2021-02-07] MEDS: hydrOXYzine PAMOATE 25 MG CAPSULE (FP) PO SCH ×5 (05:19→22:18)
[2021-02-07] MEDS ORDERED: diazePAM 5 MG TABLET PO ONE (06:00)
[2021-02-07] MEDS ORDERED: methaDONE HCL 10 MG TABLET (FOR DETOX USE ONLY) PO ONE (10:00)
[2021-02-07] MEDS: LISINOPRIL 10 MG TABLET PO SCH (11:22)
[2021-02-07] MEDS: PRENATAL VITAMINS W/ FOLIC ACID TABLET (FP) PO SCH (11:22)
[2021-02-07] MEDS: amLODIPine BESYLATE 10 MG TABLET (FP) PO SCH (11:22)
[2021-02-07] MEDS: BUDESONIDE/FORMETEROL FUMARATE 160/4.5 mcg INHALER IH SCH ×2 (11:22→22:18)
[2021-02-07 21:49] VITALS: TEMP 97.1
[2021-02-07] MEDS: AMITRIPTYLINE HCL 25 MG TABLET PO SCH (22:17)
[2021-02-07] MEDS: THIAMINE HCL 100 MG TABLET (FP) PO SCH (22:17)
[2021-02-07] MEDS: METHOCARBAMOL 500 MG TABLET PO PRN (22:19)
[2021-02-08] MEDS: hydrOXYzine PAMOATE 25 MG CAPSULE (FP) PO SCH (06:16)
[2021-02-08 09:13] VITALS: BP 117/66; PULSE 74
== END 2021-02-08 09:22 | disposition home or self-care (01) | DRG 897 ==
LOC: YASAS 23:18 → Y3N 02-03 02:17
PROVIDERS: ADMIT Allergy & Immunology; ATTEND Allergy & Immunology
PROC: HZ2ZZZZ Detoxification Services for Substance Abuse Treatment (ICD-10-PCS; principal; 2021-02-03)
DX: F11.23 Opioid dependence with withdrawal (principal); F19.282 Other psychoactive substance dependence with psychoactive substance-induced sleep disorder; F19.280 Other psychoactive substance dependence with psychoactive substance-induced anxiety disorder; F11.220 Opioid dependence with intoxication, uncomplicated; F10.230 Alcohol dependence with withdrawal, uncomplicated; F10.220 Alcohol dependence with intoxication, uncomplicated; F17.210 Nicotine dependence, cigarettes, uncomplicated; F19.24 Other psychoactive substance dependence with psychoactive substance-induced mood disorder; I10 Essential (primary) hypertension; J44.9 Chronic obstructive pulmonary disease, unspecified; M19.90 Unspecified osteoarthritis, unspecified site; R73.09 Other abnormal glucose; M54.59 Other low back pain; G89.29 Other chronic pain; D64.9 Anemia, unspecified; R26.2 Difficulty in walking, not elsewhere classified; Z99.89 Dependence on other enabling machines and devices; Z86.69 Personal history of other diseases of the nervous system and sense organs; Z56.0 Unemployment, unspecified
CPT/HCPCS: 36415; 80053; 85027; 86780; 87389; C9803; U0003; U0005

== ENCOUNTER 2021-06-06 13:59 | Inpatient (IN) | payer OTHER ==
[2021-06-06 15:33] VITALS: BMI 39.8
[2021-06-06] MEDS ORDERED: ALBUTEROL SO4 HFA INHALER IH PRN (16:53)
[2021-06-06] MEDS ORDERED: MAGNESIUM HYDROX 2400MG/30ML ORAL SUSPENSION 30 ML CUP PO PRN (16:56)
[2021-06-06] MEDS ORDERED: MAGNESIUM CITRATE 300 ML BOTTLE PO PRN (16:56)
[2021-06-06] MEDS ORDERED: ACETAMINOPHEN 325 MG TABLET (FP) PO PRN (16:56)
[2021-06-06] MEDS ORDERED: hydrOXYzine PAMOATE 25 MG CAPSULE (FP) PO PRN (16:56)
[2021-06-06] MEDS ORDERED: ONDANSETRON *ODT* 4 MG TABLET SL PRN (16:56)
[2021-06-06] MEDS ORDERED: MAG HYDROX/AL HYDROX/SIMETH 30 ML UNIT-DOSE CUP PO PRN (16:56)
[2021-06-06] MEDS ORDERED: BISMUTH SUBSALICYLATE 524 MG/30 ML PO PRN (16:56)
[2021-06-06] MEDS ORDERED: LOPERAMIDE HCL 2 MG CAPSULE PO PRN (16:56)
[2021-06-06] MEDS ORDERED: DICYCLOMINE HCL 10 MG CAPSULE PO PRN (16:56)
[2021-06-06] MEDS ORDERED: MENTHOL/PHENOL 1 EACH UD MM PRN (16:56)
[2021-06-06] MEDS ORDERED: chlordiazePOXIDE HCL 25 MG CAPSULE PO PRN (17:00)
[2021-06-06] MEDS: chlordiazePOXIDE HCL 25 MG CAPSULE PO SCH ×2 (20:05→22:10)
[2021-06-06] MEDS ORDERED: methaDONE HCL 10 MG TABLET (FOR DETOX USE ONLY) PO ONE (20:53)
[2021-06-06] MEDS ORDERED: BUDESONIDE/FORMETEROL FUMARATE 160/4.5 mcg INHALER IH SCH (22:00)
[2021-06-06] MEDS: THIAMINE HCL 100 MG TABLET (FP) PO SCH (22:08)
[2021-06-06] MEDS: MELATONIN 5 MG TABLETS PO PRN (22:08)
[2021-06-06] MEDS: BUDESONIDE/FORMETEROL FUMARATE 80/4.5 mcg INHALER IH SCH (22:08)
[2021-06-07] MEDS: P-EPHED 60MG/TRIPROLIDI 2.5MG TABLET PO PRN ×3 (01:09→22:26)
[2021-06-07] MEDS: chlordiazePOXIDE HCL 25 MG CAPSULE PO SCH ×4 (05:50→22:24)
[2021-06-07] MEDS: ACETAMINOPHEN 325 MG TABLET (FP) PO PRN (05:50)
[2021-06-07] MEDS ORDERED: methaDONE HCL 10 MG TABLET (FOR DETOX USE ONLY) ONE (09:50)
[2021-06-07] MEDS: PRENATAL VITAMINS W/ FOLIC ACID TABLET (FP) PO SCH (10:40)
[2021-06-07] MEDS: BUDESONIDE/FORMETEROL FUMARATE 80/4.5 mcg INHALER IH SCH ×2 (10:41→22:24)
[2021-06-07 11:16] LABS: HEMATOCRIT 39.5 % (35.4-49); HEMOGLOBIN 12.3 GM/dL (11.7-16.9); MCH 27.6 pg (25.7-33.7); MCHC 31.1 g/dl (32.0-35.9); MEAN CELL VOLUME 88.8 fl (80-96); PLATELET COUNT 203 10^3/uL (134-434); RBC 4.45 M/mm3 (4.00-5.60); WHITE BLOOD COUNT 4.9 K/mm3 (4.0-10.0)
[2021-06-07 11:19] LABS: ALBUMIN 3.6 g/dl (3.4-5.0); BLOOD UREA NITROGEN 16.5 mg/dL (7-18)
[2021-06-07 11:22] LABS: CREATININE 0.8 mg/dL (0.55-1.3)
[2021-06-07 11:24] LABS: BILIRUBIN,TOTAL 0.6 mg/dL (0.2-1); TOT PROT 6.8 g/dl (6.4-8.2)
[2021-06-07] MEDS ORDERED: ALBUTEROL SO4 2.5/IPRATROPIUM 0.5 INH SOL 3 ML VIAL.NEB. NEB PRN (12:37)
[2021-06-07 12:41] LABS: HIV INTERPRETATION NEGATIVE (NEGATIVE)
[2021-06-07] MEDS ORDERED: SIMETHICONE 80 MG TAB.CHEW (FP) PO PRN (12:43)
[2021-06-07] MEDS: IBUPROFEN 400 MG TABLET (FP) PO PRN (18:07)
[2021-06-07] MEDS: MIRTAZAPINE 15 MG TABLET (FP) PO SCH (22:23)
[2021-06-07] MEDS: THIAMINE HCL 100 MG TABLET (FP) PO SCH (22:24)
[2021-06-07] MEDS: cloNIDine HCL 0.1 MG TABLET PO PRN (22:27)
[2021-06-08] MEDS: chlordiazePOXIDE HCL 25 MG CAPSULE PO SCH ×4 (05:35→22:37)
[2021-06-08] MEDS ORDERED: methaDONE HCL 10 MG TABLET (FOR DETOX USE ONLY) PO ONE (10:00)
[2021-06-08] MEDS: PRENATAL VITAMINS W/ FOLIC ACID TABLET (FP) PO SCH (10:40)
[2021-06-08] MEDS: BUDESONIDE/FORMETEROL FUMARATE 80/4.5 mcg INHALER IH SCH ×2 (10:41→22:36)
[2021-06-08] MEDS: THIAMINE HCL 100 MG TABLET (FP) PO SCH (22:36)
[2021-06-08] MEDS: MIRTAZAPINE 15 MG TABLET (FP) PO SCH (22:36)
[2021-06-08] MEDS: cloNIDine HCL 0.1 MG TABLET PO PRN (22:37)
[2021-06-08] MEDS: IBUPROFEN 400 MG TABLET (FP) PO PRN (22:38)
[2021-06-09] MEDS ORDERED: chlordiazePOXIDE HCL 10 MG CAPSULE PO PRN
[2021-06-09] MEDS: chlordiazePOXIDE HCL 10 MG CAPSULE PO SCH ×4 (06:17→22:49)
[2021-06-09] MEDS ORDERED: methaDONE HCL 10 MG TABLET (FOR DETOX USE ONLY) ONE (09:07)
[2021-06-09] MEDS: PRENATAL VITAMINS W/ FOLIC ACID TABLET (FP) PO SCH (10:47)
[2021-06-09] MEDS: BUDESONIDE/FORMETEROL FUMARATE 80/4.5 mcg INHALER IH SCH ×2 (11:00→22:48)
[2021-06-09] MEDS ORDERED: HYDROCHLOROTHIAZIDE 25 MG TABLET (FP) PO ONE (12:10)
[2021-06-09] MEDS: HYDROCHLOROTHIAZIDE 25 MG TABLET (FP) PO SCH ×2 (14:59→22:48)
[2021-06-09] MEDS: cloNIDine HCL 0.1 MG TABLET PO PRN ×2 (17:42→22:50)
[2021-06-09] MEDS: P-EPHED 60MG/TRIPROLIDI 2.5MG TABLET PO PRN (17:42)
[2021-06-09] MEDS: THIAMINE HCL 100 MG TABLET (FP) PO SCH (22:48)
[2021-06-09] MEDS: MELATONIN 5 MG TABLETS PO PRN (22:49)
[2021-06-09] MEDS: MIRTAZAPINE 15 MG TABLET (FP) PO SCH (22:49)
[2021-06-10 00:07] LABS: SARS-CoV-2 NAA Not Detected (Not Detected)
[2021-06-10] MEDS: chlordiazePOXIDE HCL 10 MG CAPSULE PO SCH ×2 (05:53→17:13)
[2021-06-10] MEDS ORDERED: methaDONE HCL 10 MG TABLET (FOR DETOX USE ONLY) PO ONE (10:00)
[2021-06-10] MEDS: HYDROCHLOROTHIAZIDE 25 MG TABLET (FP) PO SCH ×2 (10:29→22:06)
[2021-06-10] MEDS: PRENATAL VITAMINS W/ FOLIC ACID TABLET (FP) PO SCH (10:29)
[2021-06-10] MEDS: P-EPHED 60MG/TRIPROLIDI 2.5MG TABLET PO PRN ×2 (10:32→22:09)
[2021-06-10] MEDS: BUDESONIDE/FORMETEROL FUMARATE 80/4.5 mcg INHALER IH SCH ×2 (11:10→22:07)
[2021-06-10] MEDS: MIRTAZAPINE 15 MG TABLET (FP) PO SCH (22:06)
[2021-06-10] MEDS: THIAMINE HCL 100 MG TABLET (FP) PO SCH (22:07)
[2021-06-10] MEDS: MELATONIN 5 MG TABLETS PO PRN (22:07)
[2021-06-10] MEDS: IBUPROFEN 400 MG TABLET (FP) PO PRN (22:08)
[2021-06-11] MEDS ORDERED: chlordiazePOXIDE HCL 10 MG CAPSULE PO ONE (05:00)
[2021-06-11] MEDS: ACETAMINOPHEN 325 MG TABLET (FP) PO PRN (06:00)
[2021-06-11 08:54] VITALS: BP 124/67; PULSE 68; TEMP 97.1
[2021-06-11] MEDS: PRENATAL VITAMINS W/ FOLIC ACID TABLET (FP) PO SCH (10:36)
[2021-06-11] MEDS: BUDESONIDE/FORMETEROL FUMARATE 80/4.5 mcg INHALER IH SCH (10:43)
[2021-06-11] MEDS: HYDROCHLOROTHIAZIDE 25 MG TABLET (FP) PO SCH (11:05)
== END 2021-06-11 11:57 | disposition other institution (70) | DRG 897 ==
LOC: YASAS 13:59 → Y3N 16:51
PROVIDERS: ADMIT Allergy & Immunology; ATTEND Allergy & Immunology
PROC: HZ2ZZZZ Detoxification Services for Substance Abuse Treatment (ICD-10-PCS; principal; 2021-06-06)
DX: F11.23 Opioid dependence with withdrawal (principal); F10.230 Alcohol dependence with withdrawal, uncomplicated; F17.210 Nicotine dependence, cigarettes, uncomplicated; F19.24 Other psychoactive substance dependence with psychoactive substance-induced mood disorder; F41.9 Anxiety disorder, unspecified; G47.00 Insomnia, unspecified; I10 Essential (primary) hypertension; J44.9 Chronic obstructive pulmonary disease, unspecified; M54.50 Low back pain, unspecified; Z96.653 Presence of artificial knee joint, bilateral; Z99.89 Dependence on other enabling machines and devices; Z91.011 Allergy to milk products; Z91.012 Allergy to eggs; Z91.013 Allergy to seafood
CPT/HCPCS: 36415; 80053; 85027; 86780; 87389; 87811; 93005; 93010; C9803-CS; J0735; U0003; U0005

== ENCOUNTER 2021-06-11 11:58 | Inpatient (IN) | payer OTHER ==
[2021-06-11] MEDS ORDERED: ALBUTEROL SO4 HFA INHALER IH PRN (13:42)
[2021-06-11] MEDS: SIMETHICONE 80 MG TAB.CHEW (FP) PO SCH ×3 (14:36→21:45)
[2021-06-11] MEDS: cloNIDine HCL 0.1 MG TABLET PO SCH ×2 (14:38→21:44)
[2021-06-11] MEDS ORDERED: MAGNESIUM HYDROX 2400MG/30ML ORAL SUSPENSION 30 ML CUP PO PRN ×2 (16:06→16:07)
[2021-06-11] MEDS ORDERED: P-EPHED 60MG/TRIPROLIDI 2.5MG TABLET PO PRN ×2 (16:06→16:07)
[2021-06-11] MEDS ORDERED: hydrOXYzine PAMOATE 25 MG CAPSULE (FP) PO PRN (16:06)
[2021-06-11] MEDS ORDERED: MENTHOL/PHENOL 1 EACH UD MM PRN ×2 (16:06→16:07)
[2021-06-11] MEDS ORDERED: ACETAMINOPHEN 325 MG TABLET (FP) PO PRN ×2 (16:06→16:07)
[2021-06-11] MEDS ORDERED: guaiFENesin 200 MG/10 ML 10 ML UNIT-DOSE CUPS PO PRN ×2 (16:06→16:07)
[2021-06-11] MEDS ORDERED: IBUPROFEN 400 MG TABLET (FP) PO PRN ×2 (16:06→16:07)
[2021-06-11] MEDS ORDERED: NICOTINE 10 MG CARTRIDGE (INHALER) IH PRN ×2 (16:06→16:07)
[2021-06-11] MEDS ORDERED: MELATONIN 5 MG TABLETS PO PRN (16:06)
[2021-06-11] MEDS ORDERED: LOPERAMIDE HCL 2 MG CAPSULE PO PRN ×2 (16:06→16:07)
[2021-06-11] MEDS ORDERED: MAG HYDROX/AL HYDROX/SIMETH 30 ML UNIT-DOSE CUP PO PRN ×2 (16:06→16:07)
[2021-06-11] MEDS ORDERED: MAGNESIUM CITRATE 300 ML BOTTLE PO PRN ×2 (16:06→16:07)
[2021-06-11] MEDS ORDERED: PRENATAL VITAMINS W/ FOLIC ACID TABLET (FP) PO SCH (16:15)
[2021-06-11] MEDS: hydrOXYzine PAMOATE 25 MG CAPSULE (FP) PO SCH ×2 (17:13→21:47)
[2021-06-11] MEDS ORDERED: hydrOXYzine PAMOATE 25 MG CAPSULE (FP) PO SCH (18:00)
[2021-06-11] MEDS ORDERED: MIRTAZAPINE 15 MG TABLET (FP) PO SCH (22:00)
[2021-06-11] MEDS ORDERED: THIAMINE HCL 100 MG TABLET (FP) PO SCH ×2 (22:00)
[2021-06-11] MEDS ORDERED: HYDROCHLOROTHIAZIDE 12.5 MG CAPSULE (FP) PO SCH (22:00)
[2021-06-11] MEDS ORDERED: BUDESONIDE/FORMETEROL FUMARATE 160/4.5 mcg INHALER IH SCH (22:00)
[2021-06-11] MEDS ORDERED: MELATONIN 5 MG TABLETS PO SCH (22:00)
[2021-06-12] MEDS: SIMETHICONE 80 MG TAB.CHEW (FP) PO SCH ×2 (05:32→06:19)
[2021-06-12] MEDS: cloNIDine HCL 0.1 MG TABLET PO SCH (06:18)
[2021-06-12] MEDS: hydrOXYzine PAMOATE 25 MG CAPSULE (FP) PO SCH (06:18)
[2021-06-12 06:29] VITALS: BP 118/85; PULSE 70; TEMP 97.1
[2021-06-12] MEDS ORDERED: NICOTINE 7 MG/24 HOURS TOPICAL PATCH TD SCH (10:00)
[2021-06-12] MEDS ORDERED: PRENATAL VITAMINS W/ FOLIC ACID TABLET (FP) PO SCH (10:00)
== END 2021-06-12 09:04 | disposition home or self-care (01) | DRG 895 ==
LOC: YASAS 11:58 → Y3E 11:59
PROVIDERS: ADMIT Allergy & Immunology; ATTEND Allergy & Immunology
PROC: HZ42ZZZ Group Counseling for Substance Abuse Treatment, Cognitive-Behavioral (ICD-10-PCS; principal; 2021-06-11)
DX: F11.20 Opioid dependence, uncomplicated (principal); F10.20 Alcohol dependence, uncomplicated; F17.210 Nicotine dependence, cigarettes, uncomplicated; I10 Essential (primary) hypertension; J44.9 Chronic obstructive pulmonary disease, unspecified; G47.30 Sleep apnea, unspecified; Z96.653 Presence of artificial knee joint, bilateral; Z86.69 Personal history of other diseases of the nervous system and sense organs; Z91.011 Allergy to milk products; Z91.012 Allergy to eggs; Z91.013 Allergy to seafood
CPT/HCPCS: J0735

== ENCOUNTER 2021-07-10 23:51 | Inpatient (IN) | payer OTHER ==
[2021-07-11] MEDS ORDERED: MAGNESIUM HYDROX 2400MG/30ML ORAL SUSPENSION 30 ML CUP PO PRN (01:14)
[2021-07-11] MEDS ORDERED: NICOTINE POLACRILEX 2 MG GUM BUC PRN (01:14)
[2021-07-11] MEDS ORDERED: MAGNESIUM CITRATE 300 ML BOTTLE PO PRN (01:14)
[2021-07-11] MEDS ORDERED: ACETAMINOPHEN 325 MG TABLET (FP) PO PRN (01:14)
[2021-07-11] MEDS ORDERED: MAG HYDROX/AL HYDROX/SIMETH 30 ML UNIT-DOSE CUP PO PRN (01:14)
[2021-07-11] MEDS ORDERED: BISMUTH SUBSALICYLATE 524 MG/30 ML PO PRN (01:14)
[2021-07-11] MEDS ORDERED: BENZOCAINE/MENTHOL (CHLORASEPTIC ) LOZENGE MM PRN (01:14)
[2021-07-11] MEDS ORDERED: DICYCLOMINE HCL 10 MG CAPSULE PO PRN (01:14)
[2021-07-11] MEDS ORDERED: ONDANSETRON *ODT* 4 MG TABLET SL PRN (01:14)
[2021-07-11] MEDS ORDERED: LOPERAMIDE HCL 2 MG CAPSULE PO PRN (01:14)
[2021-07-11] MEDS ORDERED: methaDONE HCL 10 MG TABLET (FOR DETOX USE ONLY) PO ONE (01:17)
[2021-07-11] MEDS ORDERED: cloNIDine HCL 0.1 MG TABLET PO PRN (01:17)
[2021-07-11] MEDS ORDERED: chlordiazePOXIDE HCL 25 MG CAPSULE PO PRN (01:17)
[2021-07-11] MEDS: chlordiazePOXIDE HCL 25 MG CAPSULE PO SCH ×4 (05:26→22:23)
[2021-07-11] MEDS: PRENATAL VITAMINS W/ FOLIC ACID TABLET (FP) PO SCH (10:08)
[2021-07-11] MEDS: NICOTINE 21 MG/24 HOURS TOPICAL PATCH TD SCH (10:08)
[2021-07-11] MEDS: IBUPROFEN 400 MG TABLET (FP) PO PRN ×2 (10:12→17:45)
[2021-07-11] MEDS: THIAMINE HCL 100 MG TABLET (FP) PO SCH (22:23)
[2021-07-11] MEDS: MELATONIN 5 MG TABLETS PO SCH (22:23)
[2021-07-11] MEDS: MIRTAZAPINE 15 MG TABLET (FP) PO SCH (22:23)
[2021-07-12] MEDS: chlordiazePOXIDE HCL 25 MG CAPSULE PO SCH ×4 (05:35→23:43)
[2021-07-12] MEDS ORDERED: methaDONE HCL 10 MG TABLET (FOR DETOX USE ONLY) ONE (09:16)
[2021-07-12] MEDS: PRENATAL VITAMINS W/ FOLIC ACID TABLET (FP) PO SCH (10:54)
[2021-07-12] MEDS: METHOCARBAMOL 500 MG TABLET PO PRN ×2 (10:54→23:08)
[2021-07-12] MEDS: IBUPROFEN 400 MG TABLET (FP) PO PRN (10:55)
[2021-07-12] MEDS: NICOTINE 21 MG/24 HOURS TOPICAL PATCH TD SCH (11:03)
[2021-07-12 15:26] LABS: HEMATOCRIT 39.4 % (35.4-49); HEMOGLOBIN 12.2 GM/dL (11.7-16.9); MCH 28.1 pg (25.7-33.7); MCHC 31.1 g/dl (32.0-35.9); MEAN CELL VOLUME 90.3 fl (80-96); MEAN PLT VOLUME 9.3 fl (7.5-11.1); PLATELET COUNT 194 10^3/uL (134-434); RBC 4.36 M/mm3 (4.00-5.60); RDW 16.5 % (11.9-15.9); WHITE BLOOD COUNT 5.4 K/mm3 (4.0-10.0)
[2021-07-12 15:34] LABS: ALBUMIN 3.4 g/dl (3.4-5.0); CALCIUM 8.9 mg/dL (8.5-10.1)
[2021-07-12 15:35] LABS: BLOOD UREA NITROGEN 15.7 mg/dL (7-18)
[2021-07-12 15:37] LABS: CREATININE 0.8 mg/dL (0.55-1.3)
[2021-07-12 15:39] LABS: BILIRUBIN,TOTAL 0.3 mg/dL (0.2-1); TOT PROT 6.4 g/dl (6.4-8.2)
[2021-07-12] MEDS: ACETAMINOPHEN 325 MG TABLET (FP) PO PRN (18:22)
[2021-07-12] MEDS: MELATONIN 5 MG TABLETS PO SCH (23:08)
[2021-07-12] MEDS: MIRTAZAPINE 15 MG TABLET (FP) PO SCH (23:08)
[2021-07-12] MEDS: THIAMINE HCL 100 MG TABLET (FP) PO SCH (23:09)
[2021-07-13] MEDS ORDERED: chlordiazePOXIDE HCL 10 MG CAPSULE PO PRN
[2021-07-13] MEDS: chlordiazePOXIDE HCL 10 MG CAPSULE PO SCH ×4 (05:37→22:08)
[2021-07-13] MEDS: METHOCARBAMOL 500 MG TABLET PO PRN ×2 (05:40→22:08)
[2021-07-13] MEDS ORDERED: methaDONE HCL 10 MG TABLET (FOR DETOX USE ONLY) PO ONE (10:00)
[2021-07-13] MEDS: PRENATAL VITAMINS W/ FOLIC ACID TABLET (FP) PO SCH (10:40)
[2021-07-13] MEDS: NICOTINE 21 MG/24 HOURS TOPICAL PATCH TD SCH (10:40)
[2021-07-13 14:08] LABS: SARS-CoV-2 NAA Not Detected (Not Detected)
[2021-07-13] MEDS: MIRTAZAPINE 15 MG TABLET (FP) PO SCH (22:08)
[2021-07-13] MEDS: THIAMINE HCL 100 MG TABLET (FP) PO SCH (22:08)
[2021-07-13] MEDS: MELATONIN 5 MG TABLETS PO SCH (22:08)
[2021-07-14] MEDS: chlordiazePOXIDE HCL 10 MG CAPSULE PO SCH ×2 (05:35→18:06)
[2021-07-14] MEDS: ACETAMINOPHEN 325 MG TABLET (FP) PO PRN (05:36)
[2021-07-14] MEDS ORDERED: methaDONE HCL 10 MG TABLET (FOR DETOX USE ONLY) ONE (09:10)
[2021-07-14] MEDS: PRENATAL VITAMINS W/ FOLIC ACID TABLET (FP) PO SCH (10:32)
[2021-07-14] MEDS: NICOTINE 21 MG/24 HOURS TOPICAL PATCH TD SCH (10:33)
[2021-07-14] MEDS: MIRTAZAPINE 15 MG TABLET (FP) PO SCH (22:38)
[2021-07-14] MEDS: MELATONIN 5 MG TABLETS PO SCH (22:38)
[2021-07-14] MEDS: THIAMINE HCL 100 MG TABLET (FP) PO SCH (22:39)
[2021-07-15] MEDS ORDERED: chlordiazePOXIDE HCL 10 MG CAPSULE PO ONE (05:00)
[2021-07-15] MEDS ORDERED: ALBUTEROL SO4 HFA INHALER IH PRN (05:42)
[2021-07-15 09:02] VITALS: BP 120/60; PULSE 77; TEMP 96.9
[2021-07-15] MEDS ORDERED: BUDESONIDE/FORMETEROL FUMARATE 160/4.5 mcg INHALER IH SCH (10:00)
[2021-07-15] MEDS ORDERED: methaDONE HCL 10 MG TABLET (FOR DETOX USE ONLY) PO ONE (10:00)
[2021-07-15] MEDS: PRENATAL VITAMINS W/ FOLIC ACID TABLET (FP) PO SCH (10:22)
[2021-07-15] MEDS: NICOTINE 21 MG/24 HOURS TOPICAL PATCH TD SCH (10:23)
== END 2021-07-15 11:06 | disposition home or self-care (01) | DRG 897 ==
LOC: YASAS 23:51 → Y3N 07-11 01:17
PROVIDERS: ADMIT Allergy & Immunology; ATTEND Allergy & Immunology
PROC: HZ2ZZZZ Detoxification Services for Substance Abuse Treatment (ICD-10-PCS; principal; 2021-07-11)
DX: F11.23 Opioid dependence with withdrawal (principal); F10.230 Alcohol dependence with withdrawal, uncomplicated; F17.213 Nicotine dependence, cigarettes, with withdrawal; F19.24 Other psychoactive substance dependence with psychoactive substance-induced mood disorder; F32.A Depression, unspecified; I10 Essential (primary) hypertension; J44.9 Chronic obstructive pulmonary disease, unspecified; M54.50 Low back pain, unspecified; G89.29 Other chronic pain; E66.9 Obesity, unspecified; Z68.39 Body mass index [BMI] 39.0-39.9, adult; Z96.651 Presence of right artificial knee joint; Z96.652 Presence of left artificial knee joint; Z91.012 Allergy to eggs; Z91.013 Allergy to seafood
CPT/HCPCS: 36415; 80053; 85027; 86780; 93005; 93010; C9803-CS; U0003; U0005

== ENCOUNTER 2021-08-21 20:54 | Inpatient (IN) | payer OTHER ==
[2021-08-21] MEDS ORDERED: NICOTINE POLACRILEX 2 MG GUM BUC PRN (21:16)
[2021-08-21] MEDS ORDERED: IBUPROFEN 600 MG TABLET (FP) PO PRN (21:16)
[2021-08-21] MEDS ORDERED: P-EPHED 60MG/TRIPROLIDI 2.5MG TABLET PO PRN (21:16)
[2021-08-21] MEDS ORDERED: IBUPROFEN 400 MG TABLET (FP) PO PRN (21:16)
[2021-08-21] MEDS ORDERED: ACETAMINOPHEN 325 MG TABLET (FP) PO PRN ×2 (21:16)
[2021-08-21] MEDS ORDERED: guaiFENesin 200 MG/10 ML 10 ML UNIT-DOSE CUPS PO PRN (21:16)
[2021-08-21] MEDS ORDERED: MAGNESIUM HYDROX 2400MG/30ML ORAL SUSPENSION 30 ML CUP PO PRN (21:16)
[2021-08-21] MEDS ORDERED: BISMUTH SUBSALICYLATE 524 MG/30 ML PO PRN (21:16)
[2021-08-21] MEDS ORDERED: LOPERAMIDE HCL 2 MG CAPSULE PO PRN (21:16)
[2021-08-21] MEDS ORDERED: ONDANSETRON *ODT* 4 MG TABLET SL PRN (21:16)
[2021-08-21] MEDS ORDERED: DICYCLOMINE HCL 10 MG CAPSULE PO PRN (21:16)
[2021-08-21] MEDS ORDERED: BENZOCAINE/MENTHOL (CHLORASEPTIC ) LOZENGE MM PRN (21:16)
[2021-08-21] MEDS ORDERED: MAG HYDROX/AL HYDROX/SIMETH 30 ML UNIT-DOSE CUP PO PRN (21:16)
[2021-08-21] MEDS ORDERED: MAGNESIUM CITRATE 300 ML BOTTLE PO PRN (21:16)
[2021-08-21] MEDS ORDERED: ALBUTEROL SO4 HFA INHALER IH PRN (21:19)
[2021-08-21 22:13] VITALS: BMI 39.5
[2021-08-22] MEDS ORDERED: chlordiazePOXIDE HCL 25 MG CAPSULE PO PRN (00:06)
[2021-08-22] MEDS ORDERED: cloNIDine HCL 0.1 MG TABLET PO PRN (00:06)
[2021-08-22] MEDS ORDERED: methaDONE HCL 10 MG TABLET (FOR DETOX USE ONLY) PO ONE ×2 (00:06→11:45)
[2021-08-22] MEDS: BUDESONIDE/FORMETEROL FUMARATE 160/4.5 mcg INHALER IH SCH ×3 (01:01→22:17)
[2021-08-22] MEDS: THIAMINE HCL 100 MG TABLET (FP) PO SCH ×2 (01:02→22:14)
[2021-08-22] MEDS: MELATONIN 5 MG TABLETS PO SCH ×2 (01:02→22:39)
[2021-08-22] MEDS: chlordiazePOXIDE HCL 25 MG CAPSULE PO SCH ×4 (05:19→22:14)
[2021-08-22] MEDS: METHOCARBAMOL 500 MG TABLET PO PRN ×2 (05:19→10:44)
[2021-08-22 10:12] LABS: HEMATOCRIT 36.2 % (35.4-49); HEMOGLOBIN 11.4 GM/dL (11.7-16.9); MCH 28.2 pg (25.7-33.7); MCHC 31.6 g/dl (32.0-35.9); MEAN CELL VOLUME 89.3 fl (80-96); MEAN PLT VOLUME 9.5 fl (7.5-11.1); PLATELET COUNT 144 10^3/uL (134-434); RBC 4.05 M/mm3 (4.00-5.60); RDW 16.3 % (11.9-15.9); WHITE BLOOD COUNT 4.1 K/mm3 (4.0-10.0)
[2021-08-22 10:20] LABS: CALCIUM 8.7 mg/dL (8.5-10.1)
[2021-08-22 10:21] LABS: ALBUMIN 3.5 g/dl (3.4-5.0); BLOOD UREA NITROGEN 17.3 mg/dL (7-18)
[2021-08-22 10:24] LABS: CREATININE 0.8 mg/dL (0.55-1.3)
[2021-08-22 10:25] LABS: BILIRUBIN,TOTAL 0.6 mg/dL (0.2-1); TOT PROT 6.4 g/dl (6.4-8.2)
[2021-08-22] MEDS: PRENATAL VITAMINS W/ FOLIC ACID TABLET (FP) PO SCH (10:40)
[2021-08-22] MEDS: NICOTINE 21 MG/24 HOURS TOPICAL PATCH TD SCH (10:53)
[2021-08-22] MEDS ORDERED: AMITRIPTYLINE HCL 100 MG TABLET PO SCH (22:00)
[2021-08-22] MEDS ORDERED: AMITRIPTYLINE HCL 25 MG TABLET PO SCH (22:19)
[2021-08-22] MEDS: AMITRIPTYLINE HCL 25 MG TABLET PO SCH (23:25)
[2021-08-23] MEDS: chlordiazePOXIDE HCL 25 MG CAPSULE PO SCH ×4 (05:29→22:34)
[2021-08-23] MEDS: METHOCARBAMOL 500 MG TABLET PO PRN ×3 (05:30→22:37)
[2021-08-23] MEDS ORDERED: methaDONE HCL 10 MG TABLET (FOR DETOX USE ONLY) ONE (09:04)
[2021-08-23 09:58] LABS: GLUCOSE,FASTING 121 mg/dL (74-106)
[2021-08-23 10:02] LABS: SGPT/ALT 56 U/L (13-61)
[2021-08-23] MEDS: PRENATAL VITAMINS W/ FOLIC ACID TABLET (FP) PO SCH (10:10)
[2021-08-23] MEDS: HYDROCHLOROTHIAZIDE 12.5 MG CAPSULE (FP) PO SCH ×2 (10:12→22:33)
[2021-08-23] MEDS: BUDESONIDE/FORMETEROL FUMARATE 160/4.5 mcg INHALER IH SCH ×2 (10:13→22:34)
[2021-08-23] MEDS: NICOTINE 21 MG/24 HOURS TOPICAL PATCH TD SCH (10:13)
[2021-08-23] MEDS: THIAMINE HCL 100 MG TABLET (FP) PO SCH (22:33)
[2021-08-23] MEDS: MELATONIN 5 MG TABLETS PO SCH (22:34)
[2021-08-23] MEDS: AMITRIPTYLINE HCL 25 MG TABLET PO SCH (23:25)
[2021-08-24] MEDS ORDERED: chlordiazePOXIDE HCL 10 MG CAPSULE PO PRN
[2021-08-24] MEDS: chlordiazePOXIDE HCL 10 MG CAPSULE PO SCH ×4 (05:22→22:26)
[2021-08-24] MEDS: METHOCARBAMOL 500 MG TABLET PO PRN ×3 (05:23→18:01)
[2021-08-24] MEDS ORDERED: methaDONE HCL 10 MG TABLET (FOR DETOX USE ONLY) PO ONE (10:00)
[2021-08-24] MEDS: HYDROCHLOROTHIAZIDE 12.5 MG CAPSULE (FP) PO SCH ×2 (10:19→22:26)
[2021-08-24] MEDS: PRENATAL VITAMINS W/ FOLIC ACID TABLET (FP) PO SCH (10:21)
[2021-08-24] MEDS: NICOTINE 21 MG/24 HOURS TOPICAL PATCH TD SCH (10:22)
[2021-08-24] MEDS: BUDESONIDE/FORMETEROL FUMARATE 160/4.5 mcg INHALER IH SCH ×2 (10:22→22:27)
[2021-08-24] MEDS: THIAMINE HCL 100 MG TABLET (FP) PO SCH (22:26)
[2021-08-24] MEDS: MELATONIN 5 MG TABLETS PO SCH (22:27)
[2021-08-24] MEDS: AMITRIPTYLINE HCL 25 MG TABLET PO SCH (23:20)
[2021-08-25] MEDS: chlordiazePOXIDE HCL 10 MG CAPSULE PO SCH ×2 (05:16→18:11)
[2021-08-25] MEDS ORDERED: methaDONE HCL 10 MG TABLET (FOR DETOX USE ONLY) ONE (09:02)
[2021-08-25] MEDS: PRENATAL VITAMINS W/ FOLIC ACID TABLET (FP) PO SCH (10:27)
[2021-08-25] MEDS: HYDROCHLOROTHIAZIDE 12.5 MG CAPSULE (FP) PO SCH ×2 (10:27→22:34)
[2021-08-25] MEDS: METHOCARBAMOL 500 MG TABLET PO PRN ×2 (10:27→22:52)
[2021-08-25] MEDS: BUDESONIDE/FORMETEROL FUMARATE 160/4.5 mcg INHALER IH SCH ×2 (10:29→22:35)
[2021-08-25] MEDS: NICOTINE 21 MG/24 HOURS TOPICAL PATCH TD SCH (10:29)
[2021-08-25] MEDS: MELATONIN 5 MG TABLETS PO SCH (22:34)
[2021-08-25] MEDS: THIAMINE HCL 100 MG TABLET (FP) PO SCH (22:34)
[2021-08-25] MEDS: AMITRIPTYLINE HCL 25 MG TABLET PO SCH (22:52)
[2021-08-26] MEDS ORDERED: chlordiazePOXIDE HCL 10 MG CAPSULE PO ONE (05:00)
[2021-08-26] MEDS ORDERED: methaDONE HCL 10 MG TABLET (FOR DETOX USE ONLY) PO ONE (10:00)
[2021-08-26] MEDS: PRENATAL VITAMINS W/ FOLIC ACID TABLET (FP) PO SCH (10:20)
[2021-08-26] MEDS: HYDROCHLOROTHIAZIDE 12.5 MG CAPSULE (FP) PO SCH ×2 (10:21→23:01)
[2021-08-26] MEDS: METHOCARBAMOL 500 MG TABLET PO PRN (10:23)
[2021-08-26] MEDS: BUDESONIDE/FORMETEROL FUMARATE 160/4.5 mcg INHALER IH SCH (10:24)
[2021-08-26] MEDS: NICOTINE 21 MG/24 HOURS TOPICAL PATCH TD SCH (10:24)
[2021-08-26] MEDS: MELATONIN 5 MG TABLETS PO SCH (23:01)
[2021-08-26] MEDS: THIAMINE HCL 100 MG TABLET (FP) PO SCH (23:01)
[2021-08-26] MEDS: AMITRIPTYLINE HCL 25 MG TABLET PO SCH (23:59)
[2021-08-27] MEDS: BUDESONIDE/FORMETEROL FUMARATE 160/4.5 mcg INHALER IH SCH (00:30)
[2021-08-27] MEDS: HYDROCHLOROTHIAZIDE 12.5 MG CAPSULE (FP) PO SCH (09:13)
[2021-08-27] MEDS: NICOTINE 21 MG/24 HOURS TOPICAL PATCH TD SCH (09:13)
[2021-08-27 09:18] VITALS: BP 148/74; PULSE 93; TEMP 97.7
== END 2021-08-27 10:55 | disposition home or self-care (01) | DRG 897 ==
LOC: YASAS 20:54 → Y6N 23:27
PROVIDERS: ADMIT Allergy & Immunology; ATTEND Surgery
PROC: HZ2ZZZZ Detoxification Services for Substance Abuse Treatment (ICD-10-PCS; principal; 2021-08-21)
DX: F11.23 Opioid dependence with withdrawal (principal); F10.230 Alcohol dependence with withdrawal, uncomplicated; F17.210 Nicotine dependence, cigarettes, uncomplicated; G40.909 Epilepsy, unspecified, not intractable, without status epilepticus; I10 Essential (primary) hypertension; M54.50 Low back pain, unspecified; G89.29 Other chronic pain; M15.9 Polyosteoarthritis, unspecified; E66.9 Obesity, unspecified; Z68.39 Body mass index [BMI] 39.0-39.9, adult; Z91.012 Allergy to eggs; Z91.011 Allergy to milk products
CPT/HCPCS: 36415; 80053; 82947; 82962; 84460; 85027; 86780; 87811; C9803-CS; J0735; Q0162; U0003; U0005

== ENCOUNTER 2021-10-24 22:45 | Inpatient (IN) | payer OTHER ==
[2021-10-24] MEDS ORDERED: IBUPROFEN 600 MG TABLET (FP) PO PRN (23:13)
[2021-10-24] MEDS ORDERED: P-EPHED 60MG/TRIPROLIDI 2.5MG TABLET PO PRN (23:13)
[2021-10-24] MEDS ORDERED: LOPERAMIDE HCL 2 MG CAPSULE PO PRN (23:13)
[2021-10-24] MEDS ORDERED: MAG HYDROX/AL HYDROX/SIMETH 30 ML UNIT-DOSE CUP PO PRN (23:13)
[2021-10-24] MEDS ORDERED: NALOXONE HCL 0.4 MG/ML VIAL IM PRN (23:13)
[2021-10-24] MEDS ORDERED: BENZOCAINE/MENTHOL (CHLORASEPTIC ) LOZENGE MM PRN (23:13)
[2021-10-24] MEDS ORDERED: NICOTINE POLACRILEX 2 MG GUM BUC PRN (23:13)
[2021-10-24] MEDS ORDERED: IBUPROFEN 400 MG TABLET (FP) PO PRN (23:13)
[2021-10-24] MEDS ORDERED: NALOXONE HCL (KLOXXADO) 8 MG SPRAY NS PRN (23:13)
[2021-10-24] MEDS ORDERED: guaiFENesin 200 MG/10 ML 10 ML UNIT-DOSE CUPS PO PRN (23:13)
[2021-10-24] MEDS ORDERED: MAGNESIUM CITRATE 300 ML BOTTLE PO PRN (23:13)
[2021-10-24] MEDS ORDERED: DICYCLOMINE HCL 10 MG CAPSULE PO PRN (23:13)
[2021-10-24] MEDS ORDERED: BISMUTH SUBSALICYLATE 524 MG/30 ML PO PRN (23:13)
[2021-10-24] MEDS ORDERED: MAGNESIUM HYDROX 2400MG/30ML ORAL SUSPENSION 30 ML CUP PO PRN (23:13)
[2021-10-24] MEDS ORDERED: ACETAMINOPHEN 325 MG TABLET (FP) PO PRN ×2 (23:13)
[2021-10-24] MEDS ORDERED: ALBUTEROL SO4 HFA INHALER IH PRN (23:15)
[2021-10-24 23:57] VITALS: BMI 39.3
[2021-10-25] MEDS ORDERED: chlordiazePOXIDE HCL 25 MG CAPSULE PO ONE (00:43)
[2021-10-25] MEDS: METHOCARBAMOL 500 MG TABLET PO PRN ×2 (01:10→19:30)
[2021-10-25] MEDS ORDERED: cloNIDine HCL 0.1 MG TABLET PO PRN (10:16)
[2021-10-25] MEDS ORDERED: chlordiazePOXIDE HCL 25 MG CAPSULE PO PRN (10:16)
[2021-10-25] MEDS ORDERED: methaDONE HCL 10 MG TABLET (FOR DETOX USE ONLY) PO ONE (10:16)
[2021-10-25] MEDS ORDERED: chlordiazePOXIDE HCL 25 MG CAPSULE PO SCH (11:00)
[2021-10-25] MEDS: HYDROCHLOROTHIAZIDE 12.5 MG CAPSULE (FP) PO SCH (11:32)
[2021-10-25] MEDS: PRENATAL VITAMINS W/ FOLIC ACID TABLET (FP) PO SCH (11:32)
[2021-10-25] MEDS: NICOTINE 21 MG/24 HOURS TOPICAL PATCH TD SCH (11:32)
[2021-10-25 12:33] LABS: ALBUMIN 3.3 g/dl (3.4-5.0); HEMATOCRIT 37.5 % (35.4-49); HEMOGLOBIN 12.2 GM/dL (11.7-16.9); MCH 28.7 pg (25.7-33.7); MCHC 32.5 g/dl (32.0-35.9); MEAN CELL VOLUME 88.3 fl (80-96); MEAN PLT VOLUME 9.2 fl (7.5-11.1); PLATELET COUNT 192 10^3/uL (134-434); RBC 4.25 M/mm3 (4.00-5.60); RDW 15.5 % (11.9-15.9); WHITE BLOOD COUNT 5.3 K/mm3 (4.0-10.0)
[2021-10-25 12:35] LABS: CALCIUM 8.8 mg/dL (8.5-10.1)
[2021-10-25 12:36] LABS: CREATININE 0.9 mg/dL (0.55-1.3)
[2021-10-25 12:38] LABS: BILIRUBIN,TOTAL 0.5 mg/dL (0.2-1); TOT PROT 6.5 g/dl (6.4-8.2)
[2021-10-25] MEDS: chlordiazePOXIDE HCL 25 MG CAPSULE PO SCH (19:30)
[2021-10-25] MEDS: MELATONIN 5 MG TABLETS PO SCH (22:31)
[2021-10-26] MEDS: AMITRIPTYLINE HCL 100 MG TABLET PO SCH ×2 (00:22→22:52)
[2021-10-26] MEDS: chlordiazePOXIDE HCL 25 MG CAPSULE PO SCH ×5 (00:22→22:53)
[2021-10-26] MEDS: HYDROCHLOROTHIAZIDE 12.5 MG CAPSULE (FP) PO SCH ×3 (00:22→22:52)
[2021-10-26] MEDS: THIAMINE HCL 100 MG TABLET (FP) PO SCH ×2 (00:45→22:53)
[2021-10-26] MEDS: PRENATAL VITAMINS W/ FOLIC ACID TABLET (FP) PO SCH (11:33)
[2021-10-26] MEDS: NICOTINE 21 MG/24 HOURS TOPICAL PATCH TD SCH (11:33)
[2021-10-26] MEDS: METHOCARBAMOL 500 MG TABLET PO PRN (11:33)
[2021-10-26] MEDS ORDERED: MAGNESIUM HYDROX 2400MG/30ML ORAL SUSPENSION 30 ML CUP PO ONE (12:15)
[2021-10-26] MEDS: MELATONIN 5 MG TABLETS PO SCH (22:53)
[2021-10-27] MEDS ORDERED: chlordiazePOXIDE HCL 10 MG CAPSULE PO PRN
[2021-10-27] MEDS: chlordiazePOXIDE HCL 10 MG CAPSULE PO SCH ×4 (07:04→23:04)
[2021-10-27] MEDS ORDERED: methaDONE HCL 10 MG TABLET (FOR DETOX USE ONLY) PO ONE (10:00)
[2021-10-27] MEDS: NICOTINE 21 MG/24 HOURS TOPICAL PATCH TD SCH (11:14)
[2021-10-27] MEDS: PRENATAL VITAMINS W/ FOLIC ACID TABLET (FP) PO SCH (11:14)
[2021-10-27] MEDS: HYDROCHLOROTHIAZIDE 12.5 MG CAPSULE (FP) PO SCH ×2 (14:48→23:04)
[2021-10-27] MEDS: DOCUSATE SODIUM 100 MG CAPSULE (FP) PO SCH ×2 (14:49→23:04)
[2021-10-27] MEDS: THIAMINE HCL 100 MG TABLET (FP) PO SCH (23:04)
[2021-10-27] MEDS: AMITRIPTYLINE HCL 100 MG TABLET PO SCH (23:05)
[2021-10-27] MEDS: MELATONIN 5 MG TABLETS PO SCH (23:05)
[2021-10-28] MEDS: chlordiazePOXIDE HCL 10 MG CAPSULE PO SCH ×2 (07:03→19:07)
[2021-10-28] MEDS: DOCUSATE SODIUM 100 MG CAPSULE (FP) PO SCH ×3 (07:04→21:51)
[2021-10-28] MEDS: HYDROCHLOROTHIAZIDE 12.5 MG CAPSULE (FP) PO SCH ×2 (10:36→21:51)
[2021-10-28] MEDS: NICOTINE 21 MG/24 HOURS TOPICAL PATCH TD SCH (10:36)
[2021-10-28] MEDS: PRENATAL VITAMINS W/ FOLIC ACID TABLET (FP) PO SCH (10:36)
[2021-10-28] MEDS: METHOCARBAMOL 500 MG TABLET PO PRN (19:08)
[2021-10-28] MEDS: THIAMINE HCL 100 MG TABLET (FP) PO SCH (21:51)
[2021-10-28] MEDS: AMITRIPTYLINE HCL 100 MG TABLET PO SCH (21:52)
[2021-10-28] MEDS: MELATONIN 5 MG TABLETS PO SCH (21:52)
[2021-10-29] MEDS ORDERED: chlordiazePOXIDE HCL 10 MG CAPSULE PO ONE (05:00)
[2021-10-29] MEDS: DOCUSATE SODIUM 100 MG CAPSULE (FP) PO SCH ×3 (06:24→23:46)
[2021-10-29] MEDS ORDERED: methaDONE HCL 10 MG TABLET (FOR DETOX USE ONLY) PO ONE (10:00)
[2021-10-29] MEDS: METHOCARBAMOL 500 MG TABLET PO PRN (11:19)
[2021-10-29] MEDS: PRENATAL VITAMINS W/ FOLIC ACID TABLET (FP) PO SCH (11:19)
[2021-10-29] MEDS: NICOTINE 21 MG/24 HOURS TOPICAL PATCH TD SCH (11:19)
[2021-10-29] MEDS: HYDROCHLOROTHIAZIDE 12.5 MG CAPSULE (FP) PO SCH ×2 (11:19→23:46)
[2021-10-29] MEDS: AMITRIPTYLINE HCL 100 MG TABLET PO SCH (23:46)
[2021-10-29] MEDS: MELATONIN 5 MG TABLETS PO SCH (23:46)
[2021-10-29] MEDS: THIAMINE HCL 100 MG TABLET (FP) PO SCH (23:47)
[2021-10-30] MEDS: DOCUSATE SODIUM 100 MG CAPSULE (FP) PO SCH (05:54)
[2021-10-30 06:30] VITALS: RESP 18
[2021-10-30 09:59] VITALS: BP 119/75; PULSE 79; TEMP 97.5
[2021-10-30] MEDS: HYDROCHLOROTHIAZIDE 12.5 MG CAPSULE (FP) PO SCH (11:15)
[2021-10-30] MEDS: METHOCARBAMOL 500 MG TABLET PO PRN (11:15)
[2021-10-30] MEDS: PRENATAL VITAMINS W/ FOLIC ACID TABLET (FP) PO SCH (11:15)
[2021-10-30] MEDS: NICOTINE 21 MG/24 HOURS TOPICAL PATCH TD SCH (11:15)
== END 2021-10-30 11:54 | disposition home or self-care (01) | DRG 896 ==
LOC: YASAS 22:45 → Y6N 10-25 00:19
PROVIDERS: ADMIT Surgery; ATTEND Allergy & Immunology
PROC: HZ2ZZZZ Detoxification Services for Substance Abuse Treatment (ICD-10-PCS; principal; 2021-10-25)
DX: F11.23 Opioid dependence with withdrawal (principal); U07.1 COVID-19; F19.280 Other psychoactive substance dependence with psychoactive substance-induced anxiety disorder; F19.282 Other psychoactive substance dependence with psychoactive substance-induced sleep disorder; F10.230 Alcohol dependence with withdrawal, uncomplicated; F17.210 Nicotine dependence, cigarettes, uncomplicated; F19.24 Other psychoactive substance dependence with psychoactive substance-induced mood disorder; F32.A Depression, unspecified; I10 Essential (primary) hypertension; J44.9 Chronic obstructive pulmonary disease, unspecified; E66.9 Obesity, unspecified; Z68.39 Body mass index [BMI] 39.0-39.9, adult; Z99.89 Dependence on other enabling machines and devices; Z91.011 Allergy to milk products; Z91.012 Allergy to eggs; Z91.013 Allergy to seafood
CPT/HCPCS: 36415; 80053; 85027; 86780; 87811; C9803-CS; U0003; U0005

== ENCOUNTER 2021-12-14 19:50 | Inpatient (IN) | payer OTHER ==
[2021-12-14 21:12] VITALS: BMI 39.0
[2021-12-14] MEDS ORDERED: MAG HYDROX/AL HYDROX/SIMETH 30 ML UNIT-DOSE CUP PO PRN (21:31)
[2021-12-14] MEDS ORDERED: NALOXONE HCL (KLOXXADO) 8 MG SPRAY NS PRN (21:31)
[2021-12-14] MEDS ORDERED: MAGNESIUM HYDROX 2400MG/30ML ORAL SUSPENSION 30 ML CUP PO PRN (21:31)
[2021-12-14] MEDS ORDERED: DICYCLOMINE HCL 10 MG CAPSULE PO PRN (21:31)
[2021-12-14] MEDS ORDERED: IBUPROFEN 400 MG TABLET (FP) PO PRN (21:31)
[2021-12-14] MEDS ORDERED: NALOXONE HCL 0.4 MG/ML VIAL IM PRN (21:31)
[2021-12-14] MEDS ORDERED: guaiFENesin 200 MG/10 ML 10 ML UNIT-DOSE CUPS PO PRN (21:31)
[2021-12-14] MEDS ORDERED: ONDANSETRON *ODT* 4 MG TABLET SL PRN (21:31)
[2021-12-14] MEDS ORDERED: BENZOCAINE/MENTHOL (CHLORASEPTIC ) LOZENGE MM PRN (21:31)
[2021-12-14] MEDS ORDERED: LOPERAMIDE HCL 2 MG CAPSULE PO PRN (21:31)
[2021-12-14] MEDS ORDERED: P-EPHED 60MG/TRIPROLIDI 2.5MG TABLET PO PRN (21:31)
[2021-12-14] MEDS ORDERED: METHOCARBAMOL 500 MG TABLET PO PRN (21:31)
[2021-12-14] MEDS ORDERED: IBUPROFEN 600 MG TABLET (FP) PO PRN (21:31)
[2021-12-14] MEDS ORDERED: ACETAMINOPHEN 325 MG TABLET (FP) PO PRN ×2 (21:31)
[2021-12-14] MEDS ORDERED: MAGNESIUM CITRATE 300 ML BOTTLE PO PRN (21:31)
[2021-12-14] MEDS ORDERED: BISMUTH SUBSALICYLATE 524 MG/30 ML PO PRN (21:31)
[2021-12-14] MEDS ORDERED: ALBUTEROL SO4 HFA INHALER IH PRN (21:35)
[2021-12-14] MEDS ORDERED: cloNIDine HCL 0.1 MG TABLET PO PRN (21:37)
[2021-12-14] MEDS ORDERED: methaDONE HCL 10 MG TABLET (FOR DETOX USE ONLY) PO ONE (21:37)
[2021-12-14] MEDS ORDERED: chlordiazePOXIDE HCL 25 MG CAPSULE ONE (22:54)
[2021-12-14] MEDS ORDERED: hydrOXYzine PAMOATE 25 MG CAPSULE (FP) PO ONE (22:55)
[2021-12-14] MEDS ORDERED: methaDONE HCL 10 MG TABLET (FOR DETOX USE ONLY) ONE (22:55)
[2021-12-14] MEDS: MELATONIN 5 MG TABLETS PO PRN (23:09)
[2021-12-14] MEDS: THIAMINE HCL 100 MG TABLET (FP) PO SCH (23:10)
[2021-12-14] MEDS: hydrOXYzine PAMOATE 25 MG CAPSULE (FP) PO PRN (23:10)
[2021-12-14] MEDS: chlordiazePOXIDE HCL 25 MG CAPSULE PO SCH (23:10)
[2021-12-14] MEDS ORDERED: ALBUTEROL SO4 2.5/IPRATROPIUM 0.5 INH SOL 3 ML VIAL.NEB. NEB PRN (23:59)
[2021-12-15] MEDS: chlordiazePOXIDE HCL 25 MG CAPSULE PO PRN ×2 (03:46→12:12)
[2021-12-15] MEDS: chlordiazePOXIDE HCL 25 MG CAPSULE PO SCH ×4 (06:16→22:23)
[2021-12-15 09:57] LABS: HEMATOCRIT 36.7 % (35.4-49); HEMOGLOBIN 11.2 GM/dL (11.7-16.9); MCH 27.8 pg (25.7-33.7); MCHC 30.6 g/dl (32.0-35.9); MEAN CELL VOLUME 90.7 fl (80-96); PLATELET COUNT 158 10^3/uL (134-434); RBC 4.04 M/mm3 (4.00-5.60); RDW 16.4 % (11.9-15.9); WHITE BLOOD COUNT 4.3 K/mm3 (4.0-10.0)
[2021-12-15] MEDS: PRENATAL VITAMINS W/ FOLIC ACID TABLET (FP) PO SCH (09:58)
[2021-12-15] MEDS: HYDROCHLOROTHIAZIDE 12.5 MG CAPSULE (FP) PO SCH (09:58)
[2021-12-15] MEDS: hydrOXYzine PAMOATE 25 MG CAPSULE (FP) PO PRN ×3 (09:58→22:23)
[2021-12-15 10:15] LABS: ALBUMIN 3.3 g/dl (3.4-5.0); BLOOD UREA NITROGEN 20.1 mg/dL (7-18); CALCIUM 8.6 mg/dL (8.5-10.1)
[2021-12-15 10:18] LABS: CREATININE 0.8 mg/dL (0.55-1.3)
[2021-12-15 10:19] LABS: TOT PROT 6.4 g/dl (6.4-8.2)
[2021-12-15 10:21] LABS: BILIRUBIN,TOTAL 0.6 mg/dL (0.2-1)
[2021-12-15] MEDS ORDERED: ALBUTEROL SO4 0.083% IH SOL 2.5 MG/3 ML VIAL.NEB. NEB PRN (12:13)
[2021-12-15] MEDS: THIAMINE HCL 100 MG TABLET (FP) PO SCH (22:23)
[2021-12-15] MEDS: AMITRIPTYLINE HCL 100 MG TABLET PO SCH (22:24)
[2021-12-15] MEDS: MELATONIN 5 MG TABLETS PO PRN (22:24)
[2021-12-16] MEDS: chlordiazePOXIDE HCL 10 MG CAPSULE PO SCH ×4 (06:24→22:32)
[2021-12-16] MEDS ORDERED: methaDONE HCL 10 MG TABLET (FOR DETOX USE ONLY) PO ONE (10:00)
[2021-12-16] MEDS: PRENATAL VITAMINS W/ FOLIC ACID TABLET (FP) PO SCH (10:11)
[2021-12-16] MEDS: HYDROCHLOROTHIAZIDE 12.5 MG CAPSULE (FP) PO SCH (10:11)
[2021-12-16] MEDS: hydrOXYzine PAMOATE 25 MG CAPSULE (FP) PO PRN (10:12)
[2021-12-16] MEDS: THIAMINE HCL 100 MG TABLET (FP) PO SCH (22:32)
[2021-12-16] MEDS: AMITRIPTYLINE HCL 100 MG TABLET PO SCH (22:32)
[2021-12-16] MEDS: MELATONIN 5 MG TABLETS PO PRN (22:32)
[2021-12-17] MEDS: chlordiazePOXIDE HCL 10 MG CAPSULE PO SCH ×2 (05:52→18:10)
[2021-12-17] MEDS: hydrOXYzine PAMOATE 25 MG CAPSULE (FP) PO PRN ×2 (10:27→14:09)
[2021-12-17] MEDS: PRENATAL VITAMINS W/ FOLIC ACID TABLET (FP) PO SCH (10:27)
[2021-12-17] MEDS: HYDROCHLOROTHIAZIDE 12.5 MG CAPSULE (FP) PO SCH (10:27)
[2021-12-17] MEDS: chlordiazePOXIDE HCL 10 MG CAPSULE PO PRN ×3 (10:27→22:32)
[2021-12-17] MEDS: MELATONIN 5 MG TABLETS PO PRN (22:31)
[2021-12-17] MEDS: AMITRIPTYLINE HCL 100 MG TABLET PO SCH (22:31)
[2021-12-17] MEDS: THIAMINE HCL 100 MG TABLET (FP) PO SCH (22:31)
[2021-12-18] MEDS ORDERED: chlordiazePOXIDE HCL 10 MG CAPSULE PO ONE (05:00)
[2021-12-18] MEDS: hydrOXYzine PAMOATE 25 MG CAPSULE (FP) PO PRN ×2 (05:51→10:14)
[2021-12-18] MEDS ORDERED: methaDONE HCL 10 MG TABLET (FOR DETOX USE ONLY) PO ONE (10:00)
[2021-12-18] MEDS: PRENATAL VITAMINS W/ FOLIC ACID TABLET (FP) PO SCH (10:11)
[2021-12-18] MEDS: HYDROCHLOROTHIAZIDE 12.5 MG CAPSULE (FP) PO SCH (11:46)
[2021-12-18] MEDS: THIAMINE HCL 100 MG TABLET (FP) PO SCH (23:07)
[2021-12-18] MEDS: AMITRIPTYLINE HCL 100 MG TABLET PO SCH (23:07)
[2021-12-19 09:28] VITALS: BP 146/80; PULSE 83; RESP 17; TEMP 97.3
[2021-12-19] MEDS: PRENATAL VITAMINS W/ FOLIC ACID TABLET (FP) PO SCH (10:23)
[2021-12-19] MEDS: hydrOXYzine PAMOATE 25 MG CAPSULE (FP) PO PRN (10:24)
[2021-12-19] MEDS: HYDROCHLOROTHIAZIDE 12.5 MG CAPSULE (FP) PO SCH (10:55)
== END 2021-12-19 11:50 | disposition home or self-care (01) | DRG 897 ==
LOC: YASAS 19:50 → Y6N 23:19
PROVIDERS: ADMIT Allergy & Immunology; ATTEND Surgery
PROC: HZ2ZZZZ Detoxification Services for Substance Abuse Treatment (ICD-10-PCS; principal; 2021-12-15)
DX: F11.23 Opioid dependence with withdrawal (principal); F19.282 Other psychoactive substance dependence with psychoactive substance-induced sleep disorder; F19.280 Other psychoactive substance dependence with psychoactive substance-induced anxiety disorder; F10.230 Alcohol dependence with withdrawal, uncomplicated; F17.210 Nicotine dependence, cigarettes, uncomplicated; F32.A Depression, unspecified; I10 Essential (primary) hypertension; J44.9 Chronic obstructive pulmonary disease, unspecified; G47.30 Sleep apnea, unspecified; M54.50 Low back pain, unspecified; G89.29 Other chronic pain; E66.9 Obesity, unspecified; Z68.39 Body mass index [BMI] 39.0-39.9, adult; Z91.011 Allergy to milk products; Z91.012 Allergy to eggs; Z91.013 Allergy to seafood
CPT/HCPCS: 36415; 71045-TC-FY; 80053; 82962; 85027; 86780; 94640; C9803-CS; U0003; U0005

== ENCOUNTER 2022-01-08 21:52 | Inpatient (IN) | payer OTHER ==
[2022-01-08 22:35] VITALS: BMI 39.5
[2022-01-08] MEDS ORDERED: ACETAMINOPHEN 325 MG TABLET (FP) PO PRN ×2 (22:59)
[2022-01-08] MEDS ORDERED: BISMUTH SUBSALICYLATE 524 MG/30 ML PO PRN (22:59)
[2022-01-08] MEDS ORDERED: LOPERAMIDE HCL 2 MG CAPSULE PO PRN (22:59)
[2022-01-08] MEDS ORDERED: BENZOCAINE/MENTHOL (CHLORASEPTIC ) LOZENGE MM PRN (22:59)
[2022-01-08] MEDS ORDERED: NICOTINE POLACRILEX 2 MG GUM BUC PRN (22:59)
[2022-01-08] MEDS ORDERED: ONDANSETRON *ODT* 4 MG TABLET SL PRN (22:59)
[2022-01-08] MEDS ORDERED: IBUPROFEN 400 MG TABLET (FP) PO PRN (22:59)
[2022-01-08] MEDS ORDERED: guaiFENesin 200 MG/10 ML 10 ML UNIT-DOSE CUPS PO PRN (22:59)
[2022-01-08] MEDS ORDERED: MAGNESIUM CITRATE 300 ML BOTTLE PO PRN (22:59)
[2022-01-08] MEDS ORDERED: cloNIDine HCL 0.1 MG TABLET PO PRN (22:59)
[2022-01-08] MEDS ORDERED: MAG HYDROX/AL HYDROX/SIMETH 30 ML UNIT-DOSE CUP PO PRN (22:59)
[2022-01-08] MEDS ORDERED: DICYCLOMINE HCL 10 MG CAPSULE PO PRN (22:59)
[2022-01-08] MEDS ORDERED: MAGNESIUM HYDROX 2400MG/30ML ORAL SUSPENSION 30 ML CUP PO PRN (22:59)
[2022-01-08] MEDS ORDERED: NALOXONE HCL (KLOXXADO) 8 MG SPRAY NS PRN (22:59)
[2022-01-08] MEDS ORDERED: LORazepam 2 MG TABLET PO SCH (23:00)
[2022-01-08] MEDS ORDERED: LORazepam 1 MG TABLET PO PRN (23:03)
[2022-01-08] MEDS ORDERED: chlordiazePOXIDE HCL 25 MG CAPSULE PO PRN (23:17)
[2022-01-08] MEDS ORDERED: chlordiazePOXIDE HCL 25 MG CAPSULE ONE (23:39)
[2022-01-08] MEDS: chlordiazePOXIDE HCL 25 MG CAPSULE PO SCH (23:44)
[2022-01-08] MEDS ORDERED: methaDONE HCL 10 MG TABLET (FOR DETOX USE ONLY) PO ONE (23:45)
[2022-01-09] MEDS: chlordiazePOXIDE HCL 25 MG CAPSULE PO SCH ×4 (05:34→22:24)
[2022-01-09] MEDS: P-EPHED 60MG/TRIPROLIDI 2.5MG TABLET PO PRN ×2 (06:28→11:59)
[2022-01-09] MEDS ORDERED: ALBUTEROL SO4 HFA INHALER IH PRN (06:31)
[2022-01-09] MEDS ORDERED: FLU VACC QS2022-23(6MOS UP)/PF 60 MCG/0.5 ML SYRINGE IM ONE (10:00)
[2022-01-09] MEDS: NICOTINE 21 MG/24 HOURS TOPICAL PATCH TD SCH ×2 (11:56→12:05)
[2022-01-09] MEDS: PRENATAL VITAMINS W/ FOLIC ACID TABLET (FP) PO SCH (11:56)
[2022-01-09] MEDS ORDERED: methaDONE HCL 10 MG TABLET (FOR DETOX USE ONLY) PO ONE (12:00)
[2022-01-09] MEDS: IBUPROFEN 600 MG TABLET (FP) PO PRN (12:05)
[2022-01-09 12:18] LABS: CALCIUM 8.5 mg/dL (8.5-10.1)
[2022-01-09 12:19] LABS: ALBUMIN 3.7 g/dl (3.4-5.0); BLOOD UREA NITROGEN 17.1 mg/dL (7-18)
[2022-01-09 12:22] LABS: CREATININE 0.8 mg/dL (0.55-1.3)
[2022-01-09 12:23] LABS: BILIRUBIN,TOTAL 0.8 mg/dL (0.2-1)
[2022-01-09 12:25] LABS: HEMATOCRIT 38.2 % (35.4-49); HEMOGLOBIN 12.3 GM/dL (11.7-16.9); MCH 28.9 pg (25.7-33.7); MCHC 32.1 g/dl (32.0-35.9); MEAN CELL VOLUME 90.2 fl (80-96); MEAN PLT VOLUME 8.8 fl (7.5-11.1); PLATELET COUNT 192 10^3/uL (134-434); RBC 4.24 M/mm3 (4.00-5.60); RDW 16.5 % (11.9-15.9); WHITE BLOOD COUNT 5.3 K/mm3 (4.0-10.0)
[2022-01-09 12:26] LABS: TOT PROT 6.9 g/dl (6.4-8.2)
[2022-01-09] MEDS: HYDROCHLOROTHIAZIDE 12.5 MG CAPSULE (FP) PO SCH (12:36)
[2022-01-09 14:11] LABS: HIV INTERPRETATION NEGATIVE (NEGATIVE)
[2022-01-09] MEDS ORDERED: LORATADINE 10 MG TABLET PO SCH (15:30)
[2022-01-09] MEDS: AMITRIPTYLINE HCL 100 MG TABLET PO SCH (22:22)
[2022-01-09] MEDS: MELATONIN 5 MG TABLETS PO SCH (22:22)
[2022-01-09] MEDS: THIAMINE HCL 100 MG TABLET (FP) PO SCH (22:22)
[2022-01-10] MEDS ORDERED: LORazepam 1 MG TABLET PO SCH (05:00)
[2022-01-10] MEDS: chlordiazePOXIDE HCL 25 MG CAPSULE PO SCH ×4 (05:40→22:29)
[2022-01-10] MEDS ORDERED: methaDONE HCL 10 MG TABLET (FOR DETOX USE ONLY) PO ONE (10:00)
[2022-01-10] MEDS: NICOTINE 21 MG/24 HOURS TOPICAL PATCH TD SCH (10:37)
[2022-01-10] MEDS: PRENATAL VITAMINS W/ FOLIC ACID TABLET (FP) PO SCH (10:38)
[2022-01-10] MEDS: HYDROCHLOROTHIAZIDE 12.5 MG CAPSULE (FP) PO SCH (10:38)
[2022-01-10 20:41] LABS: URINE APPEARANCE CLEAR; URINE BILIRUBIN NEGATIVE (NEGATIVE); URINE COLOR YELLOW; URINE GLUCOSE (UA) NEGATIVE (NEGATIVE); URINE KETONE NEGATIVE (NEGATIVE); URINE LEUK ESTERASE NEGATIVE (NEGATIVE); URINE NITRITE NEGATIVE (NEGATIVE); URINE PROTEIN NEGATIVE (NEGATIVE)
[2022-01-10] MEDS: THIAMINE HCL 100 MG TABLET (FP) PO SCH (22:27)
[2022-01-10] MEDS: MELATONIN 5 MG TABLETS PO SCH (22:27)
[2022-01-10] MEDS: IBUPROFEN 600 MG TABLET (FP) PO PRN (22:28)
[2022-01-10] MEDS: AMITRIPTYLINE HCL 100 MG TABLET PO SCH (22:29)
[2022-01-11] MEDS ORDERED: chlordiazePOXIDE HCL 10 MG CAPSULE PO PRN
[2022-01-11] MEDS ORDERED: LORazepam 0.5 MG TABLET PO PRN
[2022-01-11] MEDS ORDERED: LORazepam 0.5 MG TABLET PO SCH (05:00)
[2022-01-11] MEDS: chlordiazePOXIDE HCL 10 MG CAPSULE PO SCH ×4 (05:39→22:25)
[2022-01-11] MEDS: IBUPROFEN 600 MG TABLET (FP) PO PRN (05:41)
[2022-01-11] MEDS: PRENATAL VITAMINS W/ FOLIC ACID TABLET (FP) PO SCH (10:46)
[2022-01-11] MEDS: NICOTINE 21 MG/24 HOURS TOPICAL PATCH TD SCH (10:46)
[2022-01-11] MEDS: HYDROCHLOROTHIAZIDE 12.5 MG CAPSULE (FP) PO SCH (11:27)
[2022-01-11] MEDS ORDERED: BUDESONIDE/FORMETEROL FUMARATE 160/4.5 mcg INHALER IH SCH (22:00)
[2022-01-11] MEDS: DOCUSATE SODIUM 100 MG CAPSULE (FP) PO SCH (22:24)
[2022-01-11] MEDS: AMITRIPTYLINE HCL 100 MG TABLET PO SCH (22:24)
[2022-01-11] MEDS: THIAMINE HCL 100 MG TABLET (FP) PO SCH (22:24)
[2022-01-11] MEDS: MELATONIN 5 MG TABLETS PO SCH (22:25)
[2022-01-12] MEDS ORDERED: LORazepam 0.5 MG TABLET PO ONE (05:00)
[2022-01-12] MEDS: DOCUSATE SODIUM 100 MG CAPSULE (FP) PO SCH ×3 (05:38→23:08)
[2022-01-12] MEDS: chlordiazePOXIDE HCL 10 MG CAPSULE PO SCH ×2 (05:38→17:31)
[2022-01-12] MEDS ORDERED: methaDONE HCL 10 MG TABLET (FOR DETOX USE ONLY) PO ONE (10:00)
[2022-01-12] MEDS: HYDROCHLOROTHIAZIDE 12.5 MG CAPSULE (FP) PO SCH (10:40)
[2022-01-12] MEDS: PRENATAL VITAMINS W/ FOLIC ACID TABLET (FP) PO SCH (10:40)
[2022-01-12] MEDS: NICOTINE 21 MG/24 HOURS TOPICAL PATCH TD SCH (10:40)
[2022-01-12] MEDS: IBUPROFEN 600 MG TABLET (FP) PO PRN (10:41)
[2022-01-12] MEDS ORDERED: AMITRIPTYLINE HCL 25 MG TABLET PO SCH (21:43)
[2022-01-12] MEDS: MELATONIN 5 MG TABLETS PO SCH (23:07)
[2022-01-12] MEDS: THIAMINE HCL 100 MG TABLET (FP) PO SCH (23:07)
[2022-01-13] MEDS ORDERED: chlordiazePOXIDE HCL 10 MG CAPSULE PO ONE (05:00)
[2022-01-13] MEDS: DOCUSATE SODIUM 100 MG CAPSULE (FP) PO SCH (05:58)
[2022-01-13 09:11] VITALS: BP 104/61; PULSE 80; RESP 18; TEMP 98.3
[2022-01-13] MEDS: NICOTINE 21 MG/24 HOURS TOPICAL PATCH TD SCH (10:44)
[2022-01-13] MEDS: HYDROCHLOROTHIAZIDE 12.5 MG CAPSULE (FP) PO SCH (10:44)
[2022-01-13] MEDS: PRENATAL VITAMINS W/ FOLIC ACID TABLET (FP) PO SCH (10:44)
== END 2022-01-13 12:28 | disposition home or self-care (01) | DRG 897 ==
LOC: YASAS 21:52 → Y6N 23:03
PROVIDERS: ADMIT Allergy & Immunology; ATTEND Surgery
PROC: HZ2ZZZZ Detoxification Services for Substance Abuse Treatment (ICD-10-PCS; principal; 2022-01-08)
DX: F11.23 Opioid dependence with withdrawal (principal); F19.282 Other psychoactive substance dependence with psychoactive substance-induced sleep disorder; F19.280 Other psychoactive substance dependence with psychoactive substance-induced anxiety disorder; F10.230 Alcohol dependence with withdrawal, uncomplicated; F17.210 Nicotine dependence, cigarettes, uncomplicated; F19.24 Other psychoactive substance dependence with psychoactive substance-induced mood disorder; G47.30 Sleep apnea, unspecified; I10 Essential (primary) hypertension; J44.9 Chronic obstructive pulmonary disease, unspecified; M17.0 Bilateral primary osteoarthritis of knee; E66.9 Obesity, unspecified; Z68.39 Body mass index [BMI] 39.0-39.9, adult; Z91.011 Allergy to milk products; Z91.012 Allergy to eggs; Z91.013 Allergy to seafood
CPT/HCPCS: 36415; 80053; 81003; 85027; 86780; 87389; C9803-CS; U0003; U0005

== ENCOUNTER 2022-02-03 22:46 | Inpatient (IN) | payer OTHER ==
[2022-02-03 22:51] VITALS: BMI 39.5
[2022-02-03] MEDS ORDERED: MAG HYDROX/AL HYDROX/SIMETH 30 ML UNIT-DOSE CUP PO PRN (22:54)
[2022-02-03] MEDS ORDERED: DICYCLOMINE HCL 10 MG CAPSULE PO PRN (22:54)
[2022-02-03] MEDS ORDERED: LOPERAMIDE HCL 2 MG CAPSULE PO PRN (22:54)
[2022-02-03] MEDS ORDERED: ONDANSETRON *ODT* 4 MG TABLET SL PRN (22:54)
[2022-02-03] MEDS ORDERED: guaiFENesin 200 MG/10 ML 10 ML UNIT-DOSE CUPS PO PRN (22:54)
[2022-02-03] MEDS ORDERED: IBUPROFEN 600 MG TABLET (FP) PO PRN (22:54)
[2022-02-03] MEDS ORDERED: NALOXONE HCL (KLOXXADO) 8 MG SPRAY NS PRN (22:54)
[2022-02-03] MEDS ORDERED: ACETAMINOPHEN 325 MG TABLET (FP) PO PRN ×2 (22:54)
[2022-02-03] MEDS ORDERED: MAGNESIUM HYDROX 2400MG/30ML ORAL SUSPENSION 30 ML CUP PO PRN (22:54)
[2022-02-03] MEDS ORDERED: BENZOCAINE/MENTHOL (CHLORASEPTIC ) LOZENGE MM PRN (22:54)
[2022-02-03] MEDS ORDERED: IBUPROFEN 400 MG TABLET (FP) PO PRN (22:54)
[2022-02-03] MEDS ORDERED: POLYETHYLENE GLYCOL (HEALTHYLAX) 3350 17 GM PACKET PO PRN (22:54)
[2022-02-03] MEDS ORDERED: NICOTINE POLACRILEX 2 MG GUM BUC PRN (22:54)
[2022-02-03] MEDS ORDERED: P-EPHED 60MG/TRIPROLIDI 2.5MG TABLET PO PRN (22:54)
[2022-02-03] MEDS ORDERED: BISMUTH SUBSALICYLATE 524 MG/30 ML PO PRN (22:54)
[2022-02-04] MEDS: hydrOXYzine PAMOATE 25 MG CAPSULE (FP) PO PRN ×3 (00:36→22:39)
[2022-02-04] MEDS: METHOCARBAMOL 500 MG TABLET PO PRN ×3 (00:36→22:39)
[2022-02-04 09:02] LABS: HEMATOCRIT 38.7 % (35.4-49); HEMOGLOBIN 11.9 GM/dL (11.7-16.9); MCH 27.7 pg (25.7-33.7); MCHC 30.9 g/dl (32.0-35.9); MEAN CELL VOLUME 89.6 fl (80-96); MEAN PLT VOLUME 9.2 fl (7.5-11.1); PLATELET COUNT 184 10^3/uL (134-434); RBC 4.32 M/mm3 (4.00-5.60); RDW 16.1 % (11.9-15.9); WHITE BLOOD COUNT 5.1 K/mm3 (4.0-10.0)
[2022-02-04 09:08] LABS: ALBUMIN 3.3 g/dl (3.4-5.0); BLOOD UREA NITROGEN 13.2 mg/dL (7-18); CALCIUM 8.6 mg/dL (8.5-10.1)
[2022-02-04 09:11] LABS: BILIRUBIN,TOTAL 0.4 mg/dL (0.2-1); CREATININE 0.7 mg/dL (0.55-1.3)
[2022-02-04 09:13] LABS: TOT PROT 6.3 g/dl (6.4-8.2)
[2022-02-04] MEDS: PRENATAL VITAMINS W/ FOLIC ACID TABLET (FP) PO SCH (10:25)
[2022-02-04] MEDS: chlordiazePOXIDE HCL 25 MG CAPSULE PO SCH ×3 (10:27→17:52)
[2022-02-04] MEDS: NICOTINE 14 MG/24 HOURS TOPICAL PATCH TD SCH (10:27)
[2022-02-04] MEDS: chlordiazePOXIDE HCL 25 MG CAPSULE PO PRN (20:26)
[2022-02-04] MEDS: THIAMINE HCL 100 MG TABLET (FP) PO SCH (22:38)
[2022-02-04] MEDS: MELATONIN 5 MG TABLETS PO SCH (22:38)
[2022-02-05] MEDS: chlordiazePOXIDE HCL 25 MG CAPSULE PO PRN (01:25)
[2022-02-05] MEDS: chlordiazePOXIDE HCL 10 MG CAPSULE PO SCH ×4 (05:53→22:09)
[2022-02-05] MEDS: METHOCARBAMOL 500 MG TABLET PO PRN ×2 (05:55→12:54)
[2022-02-05] MEDS ORDERED: methaDONE HCL 10 MG TABLET (FOR DETOX USE ONLY) PO ONE (10:00)
[2022-02-05] MEDS: PRENATAL VITAMINS W/ FOLIC ACID TABLET (FP) PO SCH (10:09)
[2022-02-05] MEDS: hydrOXYzine PAMOATE 25 MG CAPSULE (FP) PO PRN (10:10)
[2022-02-05] MEDS: NICOTINE 14 MG/24 HOURS TOPICAL PATCH TD SCH (10:10)
[2022-02-05] MEDS: HYDROCHLOROTHIAZIDE 12.5 MG CAPSULE (FP) PO SCH (15:14)
[2022-02-05] MEDS: THIAMINE HCL 100 MG TABLET (FP) PO SCH (22:09)
[2022-02-05] MEDS: MELATONIN 5 MG TABLETS PO SCH (22:09)
[2022-02-06] MEDS: hydrOXYzine PAMOATE 25 MG CAPSULE (FP) PO PRN (03:17)
[2022-02-06] MEDS: chlordiazePOXIDE HCL 10 MG CAPSULE PO SCH ×2 (05:18→18:10)
[2022-02-06] MEDS: METHOCARBAMOL 500 MG TABLET PO PRN ×2 (05:21→10:23)
[2022-02-06] MEDS: HYDROCHLOROTHIAZIDE 12.5 MG CAPSULE (FP) PO SCH (10:14)
[2022-02-06] MEDS: PRENATAL VITAMINS W/ FOLIC ACID TABLET (FP) PO SCH (10:14)
[2022-02-06] MEDS: chlordiazePOXIDE HCL 25 MG CAPSULE PO PRN ×4 (10:15→22:36)
[2022-02-06] MEDS: NICOTINE 14 MG/24 HOURS TOPICAL PATCH TD SCH (10:15)
[2022-02-06 10:43] LABS: PH,URINE >= 9.0 (5.0-8.0); URINE APPEARANCE CLEAR; URINE BILIRUBIN NEGATIVE (NEGATIVE); URINE COLOR YELLOW; URINE GLUCOSE (UA) NEGATIVE (NEGATIVE); URINE KETONE NEGATIVE (NEGATIVE); URINE LEUK ESTERASE NEGATIVE (NEGATIVE); URINE NITRITE NEGATIVE (NEGATIVE); URINE PROTEIN NEGATIVE (NEGATIVE)
[2022-02-06 16:43] VITALS: RESP 18
[2022-02-06] MEDS: THIAMINE HCL 100 MG TABLET (FP) PO SCH (22:36)
[2022-02-06] MEDS: MELATONIN 5 MG TABLETS PO SCH (22:36)
[2022-02-07] MEDS ORDERED: chlordiazePOXIDE HCL 10 MG CAPSULE PO PRN
[2022-02-07] MEDS ORDERED: chlordiazePOXIDE HCL 10 MG CAPSULE PO ONE (05:00)
[2022-02-07 06:13] VITALS: BP 145/80; PULSE 64; TEMP 97.1
[2022-02-07] MEDS ORDERED: ALBUTEROL SO4 HFA INHALER IH PRN (08:34)
[2022-02-07] MEDS: HYDROCHLOROTHIAZIDE 12.5 MG CAPSULE (FP) PO SCH (09:23)
[2022-02-07] MEDS: NICOTINE 14 MG/24 HOURS TOPICAL PATCH TD SCH (09:24)
[2022-02-07] MEDS: PRENATAL VITAMINS W/ FOLIC ACID TABLET (FP) PO SCH (09:24)
[2022-02-07] MEDS ORDERED: methaDONE HCL 10 MG TABLET (FOR DETOX USE ONLY) PO ONE (10:00)
[2022-02-07] MEDS ORDERED: BUDESONIDE/FORMETEROL FUMARATE 160/4.5 mcg INHALER IH SCH (10:00)
== END 2022-02-07 12:10 | disposition home or self-care (01) | DRG 897 ==
LOC: YASAS 22:46 → UNDOADMIN 23:47 → Y6N 23:47
PROVIDERS: ADMIT Surgery; ATTEND Surgery
PROC: HZ2ZZZZ Detoxification Services for Substance Abuse Treatment (ICD-10-PCS; principal; 2022-02-03)
DX: F11.23 Opioid dependence with withdrawal (principal); F19.282 Other psychoactive substance dependence with psychoactive substance-induced sleep disorder; F19.280 Other psychoactive substance dependence with psychoactive substance-induced anxiety disorder; F10.230 Alcohol dependence with withdrawal, uncomplicated; F17.210 Nicotine dependence, cigarettes, uncomplicated; F19.24 Other psychoactive substance dependence with psychoactive substance-induced mood disorder; I10 Essential (primary) hypertension; J44.9 Chronic obstructive pulmonary disease, unspecified; K21.9 Gastro-esophageal reflux disease without esophagitis; R73.9 Hyperglycemia, unspecified; Z96.653 Presence of artificial knee joint, bilateral; Z86.69 Personal history of other diseases of the nervous system and sense organs; Z88.8 Allergy status to other drugs, medicaments and biological substances; Z91.011 Allergy to milk products; Z91.012 Allergy to eggs; Z91.013 Allergy to seafood
CPT/HCPCS: 36415; 80053; 81003; 85027; 86780; 87811; C9803-CS; U0003; U0005

== ENCOUNTER 2022-03-05 00:07 | Inpatient (IN) | payer OTHER ==
[2022-03-05 00:53] VITALS: BMI 40.2
[2022-03-05] MEDS ORDERED: ALBUTEROL SO4 HFA INHALER IH PRN (01:25)
[2022-03-05] MEDS ORDERED: NICOTINE POLACRILEX 2 MG GUM BUC PRN (01:26)
[2022-03-05] MEDS ORDERED: BISMUTH SUBSALICYLATE 524 MG/30 ML PO PRN (01:26)
[2022-03-05] MEDS ORDERED: guaiFENesin 200 MG/10 ML 10 ML UNIT-DOSE CUPS PO PRN (01:26)
[2022-03-05] MEDS ORDERED: NALOXONE HCL 0.4 MG/ML VIAL IM PRN (01:26)
[2022-03-05] MEDS ORDERED: IBUPROFEN 600 MG TABLET (FP) PO PRN (01:26)
[2022-03-05] MEDS ORDERED: hydrOXYzine PAMOATE 25 MG CAPSULE (FP) PO PRN (01:26)
[2022-03-05] MEDS ORDERED: NALOXONE HCL (KLOXXADO) 8 MG SPRAY NS PRN (01:26)
[2022-03-05] MEDS ORDERED: POLYETHYLENE GLYCOL (HEALTHYLAX) 3350 17 GM PACKET PO PRN (01:26)
[2022-03-05] MEDS ORDERED: MAGNESIUM HYDROX 2400MG/30ML ORAL SUSPENSION 30 ML CUP PO PRN (01:26)
[2022-03-05] MEDS ORDERED: DICYCLOMINE HCL 10 MG CAPSULE PO PRN (01:26)
[2022-03-05] MEDS ORDERED: LOPERAMIDE HCL 2 MG CAPSULE PO PRN (01:26)
[2022-03-05] MEDS ORDERED: ONDANSETRON *ODT* 4 MG TABLET SL PRN (01:26)
[2022-03-05] MEDS ORDERED: IBUPROFEN 400 MG TABLET (FP) PO PRN (01:26)
[2022-03-05] MEDS ORDERED: ACETAMINOPHEN 325 MG TABLET (FP) PO PRN ×2 (01:26)
[2022-03-05] MEDS ORDERED: BENZOCAINE/MENTHOL (CHLORASEPTIC ) LOZENGE MM PRN (01:26)
[2022-03-05] MEDS ORDERED: MAG HYDROX/AL HYDROX/SIMETH 30 ML UNIT-DOSE CUP PO PRN (01:26)
[2022-03-05] MEDS ORDERED: chlordiazePOXIDE HCL 25 MG CAPSULE PO ONE (01:44)
[2022-03-05] MEDS ORDERED: chlordiazePOXIDE HCL 25 MG CAPSULE ONE (01:54)
[2022-03-05] MEDS: DOCUSATE SODIUM 100 MG CAPSULE (FP) PO SCH ×3 (05:39→22:10)
[2022-03-05] MEDS: PRENATAL VITAMINS W/ FOLIC ACID TABLET (FP) PO SCH (10:48)
[2022-03-05] MEDS: BUDESONIDE/FORMETEROL FUMARATE 160/4.5 mcg INHALER IH SCH ×2 (10:48→22:17)
[2022-03-05] MEDS ORDERED: cloNIDine HCL 0.1 MG TABLET PO PRN (11:08)
[2022-03-05] MEDS ORDERED: methaDONE HCL 10 MG TABLET (FOR DETOX USE ONLY) PO ONE (11:08)
[2022-03-05] MEDS: chlordiazePOXIDE HCL 25 MG CAPSULE PO SCH ×3 (11:37→22:10)
[2022-03-05] MEDS: P-EPHED 60MG/TRIPROLIDI 2.5MG TABLET PO PRN ×2 (12:31→22:17)
[2022-03-05] MEDS ORDERED: MELATONIN 5 MG TABLETS PO SCH (22:00)
[2022-03-05] MEDS: THIAMINE HCL 100 MG TABLET (FP) PO SCH (22:10)
[2022-03-05] MEDS: MELATONIN 5 MG TABLETS PO PRN (22:11)
[2022-03-06] MEDS: chlordiazePOXIDE HCL 10 MG CAPSULE PO SCH ×4 (05:34→22:27)
[2022-03-06] MEDS: DOCUSATE SODIUM 100 MG CAPSULE (FP) PO SCH ×3 (05:34→22:28)
[2022-03-06] MEDS: HYDROCHLOROTHIAZIDE 12.5 MG CAPSULE (FP) PO SCH (10:43)
[2022-03-06] MEDS: BUDESONIDE/FORMETEROL FUMARATE 160/4.5 mcg INHALER IH SCH ×2 (10:44→22:28)
[2022-03-06] MEDS: PRENATAL VITAMINS W/ FOLIC ACID TABLET (FP) PO SCH (10:44)
[2022-03-06] MEDS: P-EPHED 60MG/TRIPROLIDI 2.5MG TABLET PO PRN (11:26)
[2022-03-06] MEDS: AMITRIPTYLINE HCL 100 MG TABLET PO SCH (22:20)
[2022-03-06] MEDS: THIAMINE HCL 100 MG TABLET (FP) PO SCH (22:28)
[2022-03-06] MEDS: MELATONIN 5 MG TABLETS PO PRN (22:30)
[2022-03-07] MEDS: chlordiazePOXIDE HCL 10 MG CAPSULE PO SCH ×2 (05:44→17:47)
[2022-03-07] MEDS: DOCUSATE SODIUM 100 MG CAPSULE (FP) PO SCH ×3 (05:44→22:11)
[2022-03-07] MEDS ORDERED: methaDONE HCL 10 MG TABLET (FOR DETOX USE ONLY) PO ONE (10:00)
[2022-03-07] MEDS: PRENATAL VITAMINS W/ FOLIC ACID TABLET (FP) PO SCH (10:16)
[2022-03-07] MEDS: HYDROCHLOROTHIAZIDE 12.5 MG CAPSULE (FP) PO SCH (10:16)
[2022-03-07] MEDS: BUDESONIDE/FORMETEROL FUMARATE 160/4.5 mcg INHALER IH SCH ×2 (10:16→22:11)
[2022-03-07] MEDS: chlordiazePOXIDE HCL 25 MG CAPSULE PO PRN ×2 (10:18→14:51)
[2022-03-07] MEDS: P-EPHED 60MG/TRIPROLIDI 2.5MG TABLET PO PRN ×2 (10:20→22:13)
[2022-03-07] MEDS: AMITRIPTYLINE HCL 100 MG TABLET PO SCH (22:11)
[2022-03-07] MEDS: THIAMINE HCL 100 MG TABLET (FP) PO SCH (22:11)
[2022-03-07] MEDS: MELATONIN 5 MG TABLETS PO PRN (22:12)
[2022-03-08] MEDS ORDERED: chlordiazePOXIDE HCL 10 MG CAPSULE PO PRN
[2022-03-08] MEDS ORDERED: chlordiazePOXIDE HCL 10 MG CAPSULE PO ONE (05:00)
[2022-03-08] MEDS: DOCUSATE SODIUM 100 MG CAPSULE (FP) PO SCH ×3 (06:09→22:03)
[2022-03-08] MEDS: PRENATAL VITAMINS W/ FOLIC ACID TABLET (FP) PO SCH (10:14)
[2022-03-08] MEDS: HYDROCHLOROTHIAZIDE 12.5 MG CAPSULE (FP) PO SCH (10:14)
[2022-03-08] MEDS: BUDESONIDE/FORMETEROL FUMARATE 160/4.5 mcg INHALER IH SCH ×2 (10:15→22:04)
[2022-03-08] MEDS: P-EPHED 60MG/TRIPROLIDI 2.5MG TABLET PO PRN (10:17)
[2022-03-08] MEDS: THIAMINE HCL 100 MG TABLET (FP) PO SCH (22:03)
[2022-03-08] MEDS: AMITRIPTYLINE HCL 100 MG TABLET PO SCH (22:03)
[2022-03-08] MEDS: MELATONIN 5 MG TABLETS PO PRN (22:04)
[2022-03-09] MEDS: DOCUSATE SODIUM 100 MG CAPSULE (FP) PO SCH ×3 (06:00→22:08)
[2022-03-09 06:45] VITALS: RESP 18
[2022-03-09] MEDS ORDERED: methaDONE HCL 10 MG TABLET (FOR DETOX USE ONLY) PO ONE (10:00)
[2022-03-09] MEDS: PRENATAL VITAMINS W/ FOLIC ACID TABLET (FP) PO SCH (10:03)
[2022-03-09] MEDS: HYDROCHLOROTHIAZIDE 12.5 MG CAPSULE (FP) PO SCH (10:05)
[2022-03-09] MEDS: P-EPHED 60MG/TRIPROLIDI 2.5MG TABLET PO PRN (10:05)
[2022-03-09] MEDS: BUDESONIDE/FORMETEROL FUMARATE 160/4.5 mcg INHALER IH SCH ×2 (10:06→22:08)
[2022-03-09] MEDS: MELATONIN 5 MG TABLETS PO PRN (22:08)
[2022-03-09] MEDS: AMITRIPTYLINE HCL 100 MG TABLET PO SCH (22:08)
[2022-03-09] MEDS: THIAMINE HCL 100 MG TABLET (FP) PO SCH (22:08)
[2022-03-10] MEDS: DOCUSATE SODIUM 100 MG CAPSULE (FP) PO SCH (05:22)
[2022-03-10] MEDS: PRENATAL VITAMINS W/ FOLIC ACID TABLET (FP) PO SCH (09:00)
[2022-03-10] MEDS: HYDROCHLOROTHIAZIDE 12.5 MG CAPSULE (FP) PO SCH (09:01)
[2022-03-10] MEDS: BUDESONIDE/FORMETEROL FUMARATE 160/4.5 mcg INHALER IH SCH (09:02)
[2022-03-10 09:05] VITALS: BP 139/73; PULSE 77; TEMP 96.9
== END 2022-03-10 09:02 | disposition home or self-care (01) | DRG 897 ==
LOC: YASAS 00:07 → Y6N 01:54
PROVIDERS: ADMIT Allergy & Immunology; ATTEND Allergy & Immunology
PROC: HZ2ZZZZ Detoxification Services for Substance Abuse Treatment (ICD-10-PCS; principal; 2022-03-05)
DX: F11.23 Opioid dependence with withdrawal (principal); F19.282 Other psychoactive substance dependence with psychoactive substance-induced sleep disorder; F19.280 Other psychoactive substance dependence with psychoactive substance-induced anxiety disorder; F10.230 Alcohol dependence with withdrawal, uncomplicated; F17.210 Nicotine dependence, cigarettes, uncomplicated; F19.24 Other psychoactive substance dependence with psychoactive substance-induced mood disorder; G47.30 Sleep apnea, unspecified; I10 Essential (primary) hypertension; J44.9 Chronic obstructive pulmonary disease, unspecified; K21.9 Gastro-esophageal reflux disease without esophagitis; M17.0 Bilateral primary osteoarthritis of knee; M54.50 Low back pain, unspecified; G89.29 Other chronic pain; E66.9 Obesity, unspecified; Z68.39 Body mass index [BMI] 39.0-39.9, adult; Z86.69 Personal history of other diseases of the nervous system and sense organs; Z91.011 Allergy to milk products; Z91.012 Allergy to eggs; Z91.013 Allergy to seafood
CPT/HCPCS: C9803-CS; U0003; U0005

== ENCOUNTER 2022-04-16 19:32 | Inpatient (IN) | payer OTHER ==
[2022-04-16 20:38] VITALS: BMI 39.5
[2022-04-16] MEDS ORDERED: NALOXONE HCL (KLOXXADO) 8 MG SPRAY NS PRN (21:01)
[2022-04-16] MEDS ORDERED: MAG HYDROX/AL HYDROX/SIMETH 30 ML UNIT-DOSE CUP PO PRN (21:01)
[2022-04-16] MEDS ORDERED: IBUPROFEN 400 MG TABLET (FP) PO PRN (21:01)
[2022-04-16] MEDS ORDERED: ACETAMINOPHEN 325 MG TABLET (FP) PO PRN ×2 (21:01)
[2022-04-16] MEDS ORDERED: LOPERAMIDE HCL 2 MG CAPSULE PO PRN (21:01)
[2022-04-16] MEDS ORDERED: POLYETHYLENE GLYCOL (HEALTHYLAX) 3350 17 GM PACKET PO PRN (21:01)
[2022-04-16] MEDS ORDERED: NICOTINE POLACRILEX 2 MG GUM BUC PRN (21:01)
[2022-04-16] MEDS ORDERED: IBUPROFEN 600 MG TABLET (FP) PO PRN (21:01)
[2022-04-16] MEDS ORDERED: BENZOCAINE/MENTHOL (CHLORASEPTIC ) LOZENGE MM PRN (21:01)
[2022-04-16] MEDS ORDERED: MAGNESIUM HYDROX 2400MG/30ML ORAL SUSPENSION 30 ML CUP PO PRN (21:01)
[2022-04-16] MEDS ORDERED: ONDANSETRON *ODT* 4 MG TABLET SL PRN (21:01)
[2022-04-16] MEDS ORDERED: BISMUTH SUBSALICYLATE 524 MG/30 ML PO PRN (21:01)
[2022-04-16] MEDS ORDERED: DICYCLOMINE HCL 10 MG CAPSULE PO PRN (21:01)
[2022-04-16] MEDS ORDERED: ALBUTEROL SO4 HFA INHALER IH PRN (21:12)
[2022-04-16] MEDS: METHOCARBAMOL 500 MG TABLET PO PRN (22:26)
[2022-04-16] MEDS: hydrOXYzine PAMOATE 25 MG CAPSULE (FP) PO PRN (22:26)
[2022-04-16] MEDS: THIAMINE HCL 100 MG TABLET (FP) PO SCH (22:27)
[2022-04-16] MEDS: MELATONIN 5 MG TABLETS PO SCH (22:28)
[2022-04-16] MEDS: BUDESONIDE/FORMETEROL FUMARATE 160/4.5 mcg INHALER IH SCH (22:29)
[2022-04-16] MEDS: DOCUSATE SODIUM 100 MG CAPSULE (FP) PO SCH (22:29)
[2022-04-17] MEDS: DOCUSATE SODIUM 100 MG CAPSULE (FP) PO SCH ×3 (05:10→22:19)
[2022-04-17] MEDS: METHOCARBAMOL 500 MG TABLET PO PRN (05:10)
[2022-04-17] MEDS: hydrOXYzine PAMOATE 25 MG CAPSULE (FP) PO PRN (05:12)
[2022-04-17] MEDS ORDERED: HYDROCHLOROTHIAZIDE 12.5 MG CAPSULE (FP) PO SCH (10:00)
[2022-04-17] MEDS: BUDESONIDE/FORMETEROL FUMARATE 160/4.5 mcg INHALER IH SCH ×2 (10:07→22:29)
[2022-04-17] MEDS: NICOTINE 21 MG/24 HOURS TOPICAL PATCH TD SCH (10:07)
[2022-04-17] MEDS: PRENATAL VITAMINS W/ FOLIC ACID TABLET (FP) PO SCH (10:08)
[2022-04-17] MEDS ORDERED: chlordiazePOXIDE HCL 25 MG CAPSULE PO PRN (10:18)
[2022-04-17] MEDS ORDERED: cloNIDine HCL 0.1 MG TABLET PO PRN (10:18)
[2022-04-17] MEDS ORDERED: P-EPHED 60MG/TRIPROLIDI 2.5MG TABLET PO PRN (10:20)
[2022-04-17] MEDS ORDERED: methaDONE HCL 10 MG TABLET (FOR DETOX USE ONLY) PO ONE (10:30)
[2022-04-17] MEDS: chlordiazePOXIDE HCL 25 MG CAPSULE PO SCH ×3 (10:51→22:19)
[2022-04-17 14:56] LABS: HEMATOCRIT 39.4 % (35.4-49); HEMOGLOBIN 12.6 GM/dL (11.7-16.9); MCH 28.4 pg (25.7-33.7); MCHC 32.1 g/dl (32.0-35.9); MEAN CELL VOLUME 88.7 fl (80-96); MEAN PLT VOLUME 9.5 fl (7.5-11.1); PLATELET COUNT 182 10^3/uL (134-434); RBC 4.45 M/mm3 (4.00-5.60); RDW 16.9 % (11.9-15.9)
[2022-04-17 15:07] LABS: ALBUMIN 3.7 g/dl (3.4-5.0); BLOOD UREA NITROGEN 18.3 mg/dL (7-18); CALCIUM 9.2 mg/dL (8.5-10.1)
[2022-04-17 15:12] LABS: BILIRUBIN,TOTAL 0.9 mg/dL (0.2-1); TOT PROT 7.2 g/dl (6.4-8.2)
[2022-04-17] MEDS: THIAMINE HCL 100 MG TABLET (FP) PO SCH (22:19)
[2022-04-17] MEDS: MELATONIN 5 MG TABLETS PO SCH (22:23)
[2022-04-17] MEDS: AMITRIPTYLINE HCL 50 MG TABLET PO SCH (22:23)
[2022-04-18] MEDS: DOCUSATE SODIUM 100 MG CAPSULE (FP) PO SCH ×3 (05:15→22:11)
[2022-04-18] MEDS: chlordiazePOXIDE HCL 25 MG CAPSULE PO SCH ×4 (05:15→22:11)
[2022-04-18] MEDS: hydrOXYzine PAMOATE 25 MG CAPSULE (FP) PO PRN (10:03)
[2022-04-18] MEDS: METHOCARBAMOL 500 MG TABLET PO PRN (10:03)
[2022-04-18] MEDS: HYDROCHLOROTHIAZIDE 25 MG TABLET (FP) PO SCH (10:03)
[2022-04-18] MEDS: PRENATAL VITAMINS W/ FOLIC ACID TABLET (FP) PO SCH (10:05)
[2022-04-18] MEDS: NICOTINE 21 MG/24 HOURS TOPICAL PATCH TD SCH (10:05)
[2022-04-18] MEDS: BUDESONIDE/FORMETEROL FUMARATE 160/4.5 mcg INHALER IH SCH ×2 (10:07→22:14)
[2022-04-18] MEDS: THIAMINE HCL 100 MG TABLET (FP) PO SCH (22:11)
[2022-04-18] MEDS: AMITRIPTYLINE HCL 50 MG TABLET PO SCH (22:11)
[2022-04-18] MEDS: MELATONIN 5 MG TABLETS PO SCH (22:13)
[2022-04-19] MEDS: DOCUSATE SODIUM 100 MG CAPSULE (FP) PO SCH ×3 (05:39→22:06)
[2022-04-19] MEDS: chlordiazePOXIDE HCL 25 MG CAPSULE PO SCH ×4 (05:39→22:06)
[2022-04-19] MEDS ORDERED: methaDONE HCL 10 MG TABLET (FOR DETOX USE ONLY) PO ONE (10:00)
[2022-04-19] MEDS: HYDROCHLOROTHIAZIDE 25 MG TABLET (FP) PO SCH (10:22)
[2022-04-19] MEDS: PRENATAL VITAMINS W/ FOLIC ACID TABLET (FP) PO SCH (10:22)
[2022-04-19] MEDS: hydrOXYzine PAMOATE 25 MG CAPSULE (FP) PO PRN (10:22)
[2022-04-19] MEDS: METHOCARBAMOL 500 MG TABLET PO PRN (10:22)
[2022-04-19] MEDS: NICOTINE 21 MG/24 HOURS TOPICAL PATCH TD SCH (10:23)
[2022-04-19] MEDS: BUDESONIDE/FORMETEROL FUMARATE 160/4.5 mcg INHALER IH SCH ×2 (10:24→22:06)
[2022-04-19 12:55] LABS: BLOOD UREA NITROGEN 16.1 mg/dL (7-18)
[2022-04-19] MEDS: THIAMINE HCL 100 MG TABLET (FP) PO SCH (22:06)
[2022-04-19] MEDS: AMITRIPTYLINE HCL 100 MG TABLET PO SCH (22:07)
[2022-04-19] MEDS: MELATONIN 5 MG TABLETS PO SCH (22:09)
[2022-04-20] MEDS ORDERED: chlordiazePOXIDE HCL 10 MG CAPSULE PO PRN
[2022-04-20] MEDS: DOCUSATE SODIUM 100 MG CAPSULE (FP) PO SCH ×3 (05:37→22:29)
[2022-04-20] MEDS: chlordiazePOXIDE HCL 10 MG CAPSULE PO SCH ×4 (05:38→22:29)
[2022-04-20] MEDS: PRENATAL VITAMINS W/ FOLIC ACID TABLET (FP) PO SCH (10:19)
[2022-04-20] MEDS: METHOCARBAMOL 500 MG TABLET PO PRN (10:19)
[2022-04-20] MEDS: hydrOXYzine PAMOATE 25 MG CAPSULE (FP) PO PRN (10:19)
[2022-04-20] MEDS: HYDROCHLOROTHIAZIDE 25 MG TABLET (FP) PO SCH (10:19)
[2022-04-20] MEDS: NICOTINE 21 MG/24 HOURS TOPICAL PATCH TD SCH (10:20)
[2022-04-20] MEDS: BUDESONIDE/FORMETEROL FUMARATE 160/4.5 mcg INHALER IH SCH ×2 (10:20→22:31)
[2022-04-20 16:29] LABS: PH,URINE 8.5 (5.0-8.0); URINE APPEARANCE CLEAR; URINE BILIRUBIN NEGATIVE (NEGATIVE); URINE COLOR YELLOW; URINE GLUCOSE (UA) NEGATIVE (NEGATIVE); URINE KETONE NEGATIVE (NEGATIVE); URINE LEUK ESTERASE NEGATIVE (NEGATIVE); URINE NITRITE NEGATIVE (NEGATIVE); URINE PROTEIN NEGATIVE (NEGATIVE)
[2022-04-20] MEDS: THIAMINE HCL 100 MG TABLET (FP) PO SCH (22:29)
[2022-04-20] MEDS: MELATONIN 5 MG TABLETS PO SCH (22:31)
[2022-04-20] MEDS: AMITRIPTYLINE HCL 100 MG TABLET PO SCH (22:34)
[2022-04-21] MEDS: chlordiazePOXIDE HCL 10 MG CAPSULE PO SCH ×2 (05:30→17:50)
[2022-04-21] MEDS: DOCUSATE SODIUM 100 MG CAPSULE (FP) PO SCH ×3 (05:30→22:14)
[2022-04-21] MEDS ORDERED: methaDONE HCL 10 MG TABLET (FOR DETOX USE ONLY) PO ONE (10:00)
[2022-04-21] MEDS: PRENATAL VITAMINS W/ FOLIC ACID TABLET (FP) PO SCH (10:17)
[2022-04-21] MEDS: hydrOXYzine PAMOATE 25 MG CAPSULE (FP) PO PRN (10:18)
[2022-04-21] MEDS: HYDROCHLOROTHIAZIDE 25 MG TABLET (FP) PO SCH (10:18)
[2022-04-21] MEDS: NICOTINE 21 MG/24 HOURS TOPICAL PATCH TD SCH (10:18)
[2022-04-21] MEDS: METHOCARBAMOL 500 MG TABLET PO PRN (10:18)
[2022-04-21] MEDS: BUDESONIDE/FORMETEROL FUMARATE 160/4.5 mcg INHALER IH SCH ×2 (10:19→22:14)
[2022-04-21] MEDS: AMITRIPTYLINE HCL 100 MG TABLET PO SCH (22:14)
[2022-04-21] MEDS: THIAMINE HCL 100 MG TABLET (FP) PO SCH (22:14)
[2022-04-21] MEDS: MELATONIN 5 MG TABLETS PO SCH (23:41)
[2022-04-22] MEDS ORDERED: chlordiazePOXIDE HCL 10 MG CAPSULE PO ONE (05:00)
[2022-04-22] MEDS: DOCUSATE SODIUM 100 MG CAPSULE (FP) PO SCH ×2 (05:25→15:12)
[2022-04-22 09:22] VITALS: BP 156/83; PULSE 92; RESP 18; TEMP 97.6
[2022-04-22] MEDS: NICOTINE 21 MG/24 HOURS TOPICAL PATCH TD SCH (10:04)
[2022-04-22] MEDS: BUDESONIDE/FORMETEROL FUMARATE 160/4.5 mcg INHALER IH SCH (10:04)
[2022-04-22] MEDS: HYDROCHLOROTHIAZIDE 25 MG TABLET (FP) PO SCH (10:04)
[2022-04-22] MEDS: PRENATAL VITAMINS W/ FOLIC ACID TABLET (FP) PO SCH (10:04)
== END 2022-04-22 09:58 | disposition home or self-care (01) | DRG 897 ==
LOC: YASAS 19:32 → UNDOADMIN 21:23 → Y6N 21:23
PROVIDERS: ADMIT Allergy & Immunology; ATTEND Family Medicine
PROC: HZ2ZZZZ Detoxification Services for Substance Abuse Treatment (ICD-10-PCS; principal; 2022-04-16)
DX: F11.23 Opioid dependence with withdrawal (principal); F19.282 Other psychoactive substance dependence with psychoactive substance-induced sleep disorder; F10.230 Alcohol dependence with withdrawal, uncomplicated; F17.210 Nicotine dependence, cigarettes, uncomplicated; F19.24 Other psychoactive substance dependence with psychoactive substance-induced mood disorder; G47.00 Insomnia, unspecified; I10 Essential (primary) hypertension; J44.9 Chronic obstructive pulmonary disease, unspecified; M17.0 Bilateral primary osteoarthritis of knee; M54.50 Low back pain, unspecified; G89.29 Other chronic pain; E66.9 Obesity, unspecified; Z68.39 Body mass index [BMI] 39.0-39.9, adult; Z99.89 Dependence on other enabling machines and devices; Z91.011 Allergy to milk products; Z91.012 Allergy to eggs; Z91.013 Allergy to seafood
CPT/HCPCS: 36415; 80053; 81003; 82947; 83036; 84450; 84460; 84520; 85027; 86780; 87811; C9803-CS; U0003; U0005

== ENCOUNTER 2022-05-15 21:43 | Inpatient (IN) | payer OTHER ==
[2022-05-15 22:39] VITALS: BP 118/65; PULSE 97; RESP 16; TEMP 97.5; BMI 39.5
[2022-05-15] MEDS ORDERED: METHOCARBAMOL 500 MG TABLET PO PRN (23:19)
[2022-05-15] MEDS ORDERED: IBUPROFEN 400 MG TABLET (FP) PO PRN (23:19)
[2022-05-15] MEDS ORDERED: NALOXONE HCL (KLOXXADO) 8 MG SPRAY NS PRN (23:19)
[2022-05-15] MEDS ORDERED: MAGNESIUM HYDROX 2400MG/30ML ORAL SUSPENSION 30 ML CUP PO PRN (23:19)
[2022-05-15] MEDS ORDERED: NICOTINE 10 MG CARTRIDGE (INHALER) IH PRN (23:19)
[2022-05-15] MEDS ORDERED: BISMUTH SUBSALICYLATE 524 MG/30 ML PO PRN (23:19)
[2022-05-15] MEDS ORDERED: LOPERAMIDE HCL 2 MG CAPSULE PO PRN (23:19)
[2022-05-15] MEDS ORDERED: DICYCLOMINE HCL 10 MG CAPSULE PO PRN (23:19)
[2022-05-15] MEDS ORDERED: ACETAMINOPHEN 325 MG TABLET (FP) PO PRN ×2 (23:19)
[2022-05-15] MEDS ORDERED: POLYETHYLENE GLYCOL (HEALTHYLAX) 3350 17 GM PACKET PO PRN (23:19)
[2022-05-15] MEDS ORDERED: BENZOCAINE/MENTHOL (CHLORASEPTIC ) LOZENGE MM PRN (23:19)
[2022-05-15] MEDS ORDERED: MAG HYDROX/AL HYDROX/SIMETH 30 ML UNIT-DOSE CUP PO PRN (23:19)
[2022-05-15] MEDS ORDERED: IBUPROFEN 600 MG TABLET (FP) PO PRN (23:19)
[2022-05-15] MEDS ORDERED: ONDANSETRON *ODT* 4 MG TABLET SL PRN (23:19)
[2022-05-16] MEDS ORDERED: NICOTINE 21 MG/24 HOURS TOPICAL PATCH TD SCH (10:00)
[2022-05-16] MEDS ORDERED: PRENATAL VITAMINS W/ FOLIC ACID TABLET (FP) PO SCH (10:00)
[2022-05-16] MEDS ORDERED: THIAMINE HCL 100 MG TABLET (FP) PO SCH (22:00)
[2022-05-16] MEDS ORDERED: MELATONIN 5 MG TABLETS PO SCH (22:00)
== END 2022-05-15 23:59 | disposition short-term general hospital (02) | DRG 897 ==
LOC: YASAS 21:43 → Y3N 23:39
PROVIDERS: ADMIT Allergy & Immunology; ATTEND Surgery
PROC: HZ2ZZZZ Detoxification Services for Substance Abuse Treatment (ICD-10-PCS; principal; 2022-05-15)
DX: F11.23 Opioid dependence with withdrawal (principal); F10.20 Alcohol dependence, uncomplicated; F17.210 Nicotine dependence, cigarettes, uncomplicated; F32.A Depression, unspecified; G47.33 Obstructive sleep apnea (adult) (pediatric); J44.9 Chronic obstructive pulmonary disease, unspecified; I10 Essential (primary) hypertension; M54.50 Low back pain, unspecified; G89.29 Other chronic pain; R60.0 Localized edema; Z96.653 Presence of artificial knee joint, bilateral
CPT/HCPCS: 36415; 86780

== ENCOUNTER 2022-05-16 00:26 | Inpatient (IN) | payer OTHER ==
[2022-05-16] MEDS ORDERED: methylPREDNISolone NA SUCC 125 MG/2 ML VIAL IVPB ONE (02:19)
[2022-05-16] MEDS ORDERED: ALBUTEROL SO4 2.5/IPRATROPIUM 0.5 INH SOL 3 ML VIAL.NEB. NEB ONE ×3 (02:19→12:08)
[2022-05-16] MEDS ORDERED: FUROSEMIDE 40 MG/4 ML INJECTABLE VIAL IVPUSH ONE (02:34)
[2022-05-16] MEDS ORDERED: FUROSEMIDE 40 MG/4 ML INJECTABLE VIAL ONE ×2 (03:26→10:55)
[2022-05-16] MEDS ORDERED: methylPREDNISolone NA SUCC 125 MG/2 ML VIAL ONE (03:26)
[2022-05-16 03:41] LABS: BASO % 1.1 % (0-2.0); EOS % 2.8 % (0-4.5); HEMATOCRIT 37.5 % (35.4-49); HEMOGLOBIN 11.9 GM/dL (11.7-16.9); LYMPH % 45.8 % (8-40); MCH 27.4 pg (25.7-33.7); MCHC 31.8 g/dl (32.0-35.9); MEAN CELL VOLUME 86.3 fl (80-96); MEAN PLT VOLUME 8.4 fl (7.5-11.1); MONO % 9.5 % (3.8-10.2); NEUT % 40.8 % (42.8-82.8); PLATELET COUNT 163 10^3/uL (134-434); RBC 4.35 M/mm3 (4.00-5.60); RDW 17.4 % (11.9-15.9); WHITE BLOOD COUNT 5.4 K/mm3 (4.0-10.0)
[2022-05-16 03:42] LABS: VENOUS BASE EXCESS 3.9 mmol/L (-2-2); VENOUS O2 SATURATION 51.9 % (70-80); VENOUS PH 7.283 (7.310-7.410)
[2022-05-16 03:45] LABS: VENOUS PCO2 70.8 mmHg (38-52)
[2022-05-16 04:00] LABS: CALCIUM 8.2 mg/dL (8.5-10.1)
[2022-05-16 04:01] LABS: ALBUMIN 3.3 g/dl (3.4-5.0); BLOOD UREA NITROGEN 13.8 mg/dL (7-18); MAGNESIUM 1.8 mg/dL (1.8-2.4)
[2022-05-16 04:05] LABS: BILIRUBIN,TOTAL 0.4 mg/dL (0.2-1); CREATININE 0.8 mg/dL (0.55-1.3)
[2022-05-16 04:10] LABS: N-TERMINAL BNP 40.2 pg/ml (5-125)
[2022-05-16 05:27] LABS: VENOUS BASE EXCESS 6.8 mmol/L (-2-2); VENOUS PH 7.314 (7.310-7.410)
[2022-05-16 05:55] LABS: VENOUS PCO2 71.4 mmHg (38-52)
[2022-05-16] MEDS ORDERED: cloNIDine HCL 0.1 MG TABLET PO PRN (10:29)
[2022-05-16] MEDS ORDERED: methaDONE HCL 10 MG TABLET (FOR DETOX USE ONLY) PO ONE (10:29)
[2022-05-16] MEDS ORDERED: PANTOPRAZOLE 20 MG TABLET PO ONE ×2 (10:32→10:40)
[2022-05-16] MEDS ORDERED: ENOXAPARIN NA (PORCINE) 40 MG/0.4 ML DISP.SYRIN SQ ONE ×2 (10:32→10:41)
[2022-05-16] MEDS ORDERED: LORazepam 1 MG TABLET PO PRN (10:33)
[2022-05-16] MEDS ORDERED: methaDONE HCL 10 MG TABLET ONE (10:40)
[2022-05-16] MEDS: PANTOPRAZOLE 20 MG TABLET PO SCH (10:48)
[2022-05-16] MEDS: ENOXAPARIN NA (PORCINE) 40 MG/0.4 ML DISP.SYRIN SQ SCH (10:48)
[2022-05-16] MEDS ORDERED: LORazepam 2 MG TABLET PO SCH (11:00)
[2022-05-16] MEDS: FUROSEMIDE 40 MG/4 ML INJECTABLE VIAL IVPUSH SCH (11:08)
[2022-05-16] MEDS ORDERED: REMDESIVIR 200 MG in SODIUM CHLORIDE 250 ML IVPB ONE (11:30)
[2022-05-16] MEDS ORDERED: POLYETHYLENE GLYCOL (HEALTHYLAX) 3350 17 GM PACKET ONE ×2 (12:08→22:27)
[2022-05-16] MEDS: ALBUTEROL SO4 2.5/IPRATROPIUM 0.5 INH SOL 3 ML VIAL.NEB. NEB SCH ×3 (12:14→21:02)
[2022-05-16] MEDS: POLYETHYLENE GLYCOL (HEALTHYLAX) 3350 17 GM PACKET PO SCH ×2 (12:14→22:28)
[2022-05-16] MEDS ORDERED: chlordiazePOXIDE HCL 25 MG CAPSULE PO ONE (13:06)
[2022-05-16] MEDS ORDERED: ALBUTEROL SO4 HFA INHALER IH PRN (13:15)
[2022-05-16 15:59] LABS: URINE APPEARANCE CLEAR; URINE BILIRUBIN NEGATIVE (NEGATIVE); URINE COLOR YELLOW; URINE GLUCOSE (UA) NEGATIVE (NEGATIVE); URINE KETONE NEGATIVE (NEGATIVE); URINE LEUK ESTERASE NEGATIVE (NEGATIVE); URINE NITRITE NEGATIVE (NEGATIVE); URINE PROTEIN NEGATIVE (NEGATIVE); URINE UROBILINOGEN 0.2 mg/dL (0.2-1.0)
[2022-05-16] MEDS: BUDESONIDE/FORMETEROL FUMARATE 160/4.5 mcg INHALER IH SCH (23:37)
[2022-05-17] MEDS ORDERED: chlordiazePOXIDE HCL 25 MG CAPSULE PO ONE ×2 (01:37→23:25)
[2022-05-17] MEDS: ALBUTEROL SO4 2.5/IPRATROPIUM 0.5 INH SOL 3 ML VIAL.NEB. NEB SCH ×4 (08:25→21:40)
[2022-05-17 08:54] LABS: BASO % 0.5 % (0-2.0); EOS % 0.2 % (0-4.5); HEMATOCRIT 39.8 % (35.4-49); HEMOGLOBIN 12.6 GM/dL (11.7-16.9); LYMPH % 28.5 % (8-40); MCH 27.6 pg (25.7-33.7); MCHC 31.7 g/dl (32.0-35.9); MEAN CELL VOLUME 87.2 fl (80-96); MEAN PLT VOLUME 8.5 fl (7.5-11.1); MONO % 10.4 % (3.8-10.2); NEUT % 60.4 % (42.8-82.8); PLATELET COUNT 142 10^3/uL (134-434); RBC 4.57 M/mm3 (4.00-5.60); RDW 17.2 % (11.9-15.9); WHITE BLOOD COUNT 5.9 K/mm3 (4.0-10.0)
[2022-05-17 09:08] LABS: CHLORIDE 99 mmol/L (98-107); SODIUM 141 mmol/L (136-145)
[2022-05-17 09:20] LABS: BILIRUBIN,TOTAL 0.9 mg/dL (0.2-1); TOT PROT 7.2 g/dl (6.4-8.2)
[2022-05-17 09:21] LABS: ALK PHOS 64 U/L (45-117)
[2022-05-17 09:25] LABS: SGPT/ALT 59 U/L (13-61)
[2022-05-17 09:26] LABS: ALBUMIN 3.5 g/dl (3.4-5.0); GLUCOSE,RANDOM 112 mg/dL (74-106); LDL CHOLESTEROL (ONLY SJRH) 53 mg/dL (5-100); PHOSPHOROUS 3.5 mg/dL (2.5-4.9); SGOT/AST 32 U/L (15-37); TRIGLYCERIDES 54 mg/dL (0-150)
[2022-05-17 09:28] LABS: BLOOD UREA NITROGEN 19.8 mg/dL (7-18)
[2022-05-17 09:29] LABS: CHOLESTEROL 222 mg/dL (50-200)
[2022-05-17 09:30] LABS: ANION GAP 5 MMOL/L (8-16); CO2 38 mmol/L (21-32); CREATININE 0.8 mg/dL (0.55-1.3); MAGNESIUM 1.8 mg/dL (1.8-2.4)
[2022-05-17 09:32] LABS: HDL CHOLESTEROL > 150 mg/dL (40-60)
[2022-05-17] MEDS ORDERED: chlordiazePOXIDE HCL 25 MG CAPSULE PO PRN (09:49)
[2022-05-17] MEDS: BUDESONIDE/FORMETEROL FUMARATE 160/4.5 mcg INHALER IH SCH ×2 (10:01→22:35)
[2022-05-17] MEDS: POLYETHYLENE GLYCOL (HEALTHYLAX) 3350 17 GM PACKET PO SCH ×2 (10:01→22:35)
[2022-05-17] MEDS: ENOXAPARIN NA (PORCINE) 40 MG/0.4 ML DISP.SYRIN SQ SCH (10:01)
[2022-05-17] MEDS: DEXAMETHASONE SOD PHOSPHATE 10 MG/1 ML VIAL IVPUSH SCH (10:02)
[2022-05-17] MEDS: FUROSEMIDE 40 MG/4 ML INJECTABLE VIAL IVPUSH SCH (10:02)
[2022-05-17] MEDS: PANTOPRAZOLE 20 MG TABLET PO SCH (10:05)
[2022-05-17] MEDS: REMDESIVIR 100 MG in SODIUM CHLORIDE 250 ML IVPB SCH (10:17)
[2022-05-18] MEDS ORDERED: LORazepam 1 MG TABLET PO SCH (05:00)
[2022-05-18] MEDS: ALBUTEROL SO4 2.5/IPRATROPIUM 0.5 INH SOL 3 ML VIAL.NEB. NEB SCH ×4 (08:00→21:04)
[2022-05-18] MEDS: ENOXAPARIN NA (PORCINE) 40 MG/0.4 ML DISP.SYRIN SQ SCH (09:14)
[2022-05-18] MEDS: POLYETHYLENE GLYCOL (HEALTHYLAX) 3350 17 GM PACKET PO SCH ×3 (09:15→22:19)
[2022-05-18] MEDS: PANTOPRAZOLE 20 MG TABLET PO SCH (09:15)
[2022-05-18] MEDS: FUROSEMIDE 40 MG/4 ML INJECTABLE VIAL IVPUSH SCH (09:15)
[2022-05-18] MEDS: DEXAMETHASONE SOD PHOSPHATE 10 MG/1 ML VIAL IVPUSH SCH (09:15)
[2022-05-18 09:22] LABS: BASO % 0.4 % (0-2.0); EOS % 0.2 % (0-4.5); HEMATOCRIT 39.9 % (35.4-49); HEMOGLOBIN 12.5 GM/dL (11.7-16.9); LYMPH % 29.7 % (8-40); MCH 27.9 pg (25.7-33.7); MCHC 31.3 g/dl (32.0-35.9); MONO % 11.4 % (3.8-10.2); NEUT % 58.3 % (42.8-82.8); PLATELET COUNT 152 10^3/uL (134-434); RBC 4.49 M/mm3 (4.00-5.60); RDW 17.2 % (11.9-15.9); WHITE BLOOD COUNT 5.7 K/mm3 (4.0-10.0)
[2022-05-18] MEDS ORDERED: chlordiazePOXIDE HCL 10 MG CAPSULE PO PRN (09:25)
[2022-05-18] MEDS ORDERED: chlordiazePOXIDE HCL 10 MG CAPSULE PO ONE (09:33)
[2022-05-18] MEDS ORDERED: methaDONE HCL 10 MG TABLET PO ONE (10:00)
[2022-05-18 10:08] LABS: BLOOD UREA NITROGEN 19.9 mg/dL (7-18); CALCIUM 8.8 mg/dL (8.5-10.1)
[2022-05-18 10:09] LABS: ALBUMIN 3.2 g/dl (3.4-5.0); MAGNESIUM 1.9 mg/dL (1.8-2.4)
[2022-05-18 10:10] LABS: BILIRUBIN,TOTAL 0.8 mg/dL (0.2-1); TOT PROT 6.6 g/dl (6.4-8.2)
[2022-05-18 10:11] LABS: CREATININE 0.7 mg/dL (0.55-1.3); PHOSPHOROUS 3.1 mg/dL (2.5-4.9)
[2022-05-18] MEDS: REMDESIVIR 100 MG in SODIUM CHLORIDE 250 ML IVPB SCH (10:36)
[2022-05-18] MEDS: BUDESONIDE/FORMETEROL FUMARATE 160/4.5 mcg INHALER IH SCH ×2 (10:39→22:20)
[2022-05-18 13:40] VITALS: BMI 38.5
[2022-05-18] MEDS: chlordiazePOXIDE HCL 10 MG CAPSULE PO SCH ×2 (17:17→22:21)
[2022-05-19] MEDS ORDERED: LORazepam 0.5 MG TABLET PO PRN
[2022-05-19] MEDS ORDERED: LORazepam 0.5 MG TABLET PO SCH (05:00)
[2022-05-19] MEDS: chlordiazePOXIDE HCL 10 MG CAPSULE PO SCH ×3 (05:09→17:33)
[2022-05-19] MEDS: chlordiazePOXIDE HCL 25 MG CAPSULE PO PRN ×2 (06:37→22:05)
[2022-05-19 07:37] LABS: BASO % 0.5 % (0-2.0); EOS % 0.6 % (0-4.5); HEMATOCRIT 37.9 % (35.4-49); HEMOGLOBIN 12.2 GM/dL (11.7-16.9); LYMPH % 30.8 % (8-40); MCH 28.4 pg (25.7-33.7); MCHC 32.3 g/dl (32.0-35.9); MEAN CELL VOLUME 87.8 fl (80-96); MEAN PLT VOLUME 8.9 fl (7.5-11.1); MONO % 13.2 % (3.8-10.2); NEUT % 54.9 % (42.8-82.8); PLATELET COUNT 147 10^3/uL (134-434); RBC 4.32 M/mm3 (4.00-5.60); WHITE BLOOD COUNT 6.3 K/mm3 (4.0-10.0)
[2022-05-19] MEDS: ALBUTEROL SO4 2.5/IPRATROPIUM 0.5 INH SOL 3 ML VIAL.NEB. NEB SCH ×4 (08:28→21:16)
[2022-05-19 08:58] LABS: ALBUMIN 2.9 g/dl (3.4-5.0); BLOOD UREA NITROGEN 18.4 mg/dL (7-18)
[2022-05-19 08:59] LABS: CALCIUM 8.4 mg/dL (8.5-10.1); MAGNESIUM 1.8 mg/dL (1.8-2.4)
[2022-05-19 09:01] LABS: CREATININE 0.7 mg/dL (0.55-1.3); PHOSPHOROUS 2.8 mg/dL (2.5-4.9)
[2022-05-19 09:02] LABS: BILIRUBIN,TOTAL 1.2 mg/dL (0.2-1)
[2022-05-19] MEDS: FUROSEMIDE 40 MG/4 ML INJECTABLE VIAL IVPUSH SCH (10:28)
[2022-05-19] MEDS: DEXAMETHASONE SOD PHOSPHATE 10 MG/1 ML VIAL IVPUSH SCH (10:28)
[2022-05-19] MEDS: ENOXAPARIN NA (PORCINE) 40 MG/0.4 ML DISP.SYRIN SQ SCH (10:28)
[2022-05-19] MEDS: POLYETHYLENE GLYCOL (HEALTHYLAX) 3350 17 GM PACKET PO SCH ×2 (10:28→21:58)
[2022-05-19] MEDS: PANTOPRAZOLE 20 MG TABLET PO SCH (10:30)
[2022-05-19] MEDS: REMDESIVIR 100 MG in SODIUM CHLORIDE 250 ML IVPB SCH (10:30)
[2022-05-19] MEDS: BUDESONIDE/FORMETEROL FUMARATE 160/4.5 mcg INHALER IH SCH ×2 (11:56→22:13)
[2022-05-19] MEDS ORDERED: MELATONIN 5 MG TABLETS PO SCH (22:00)
[2022-05-20] MEDS ORDERED: LORazepam 0.5 MG TABLET PO ONE (05:00)
[2022-05-20] MEDS: chlordiazePOXIDE HCL 10 MG CAPSULE PO SCH (05:14)
[2022-05-20] MEDS: ALBUTEROL SO4 2.5/IPRATROPIUM 0.5 INH SOL 3 ML VIAL.NEB. NEB SCH ×2 (07:35)
[2022-05-20 08:34] VITALS: BP 170/90; PULSE 69; RESP 20; TEMP 98.1
[2022-05-20] MEDS: PANTOPRAZOLE 20 MG TABLET PO SCH (09:37)
[2022-05-20] MEDS: DEXAMETHASONE SOD PHOSPHATE 10 MG/1 ML VIAL IVPUSH SCH (09:37)
[2022-05-20] MEDS: POLYETHYLENE GLYCOL (HEALTHYLAX) 3350 17 GM PACKET PO SCH (09:38)
[2022-05-20] MEDS: ENOXAPARIN NA (PORCINE) 40 MG/0.4 ML DISP.SYRIN SQ SCH (09:38)
[2022-05-20] MEDS: BUDESONIDE/FORMETEROL FUMARATE 160/4.5 mcg INHALER IH SCH (09:41)
[2022-05-20] MEDS ORDERED: methaDONE HCL 10 MG TABLET PO ONE (10:00)
[2022-05-20] MEDS ORDERED: HYDROCHLOROTHIAZIDE 12.5 MG CAPSULE (FP) PO SCH (10:00)
[2022-05-20] MEDS ORDERED: FUROSEMIDE 40 MG TABLET (FP) PO SCH (10:00)
[2022-05-20] MEDS ORDERED: chlordiazePOXIDE HCL 10 MG CAPSULE PO ONE (17:00)
[2022-05-21] MEDS ORDERED: chlordiazePOXIDE HCL 10 MG CAPSULE PO PRN
== END 2022-05-20 11:23 | disposition home or self-care (01) | DRG 177 ==
LOC: JER 00:26 → JERBED 06:20 → OBSVTOIN 10:23 → J6S 23:34
PROVIDERS: ADMIT Internal Medicine; ATTEND Internal Medicine
PROC: XW033E5 Introduction of Remdesivir Anti-infective into Peripheral Vein, Percutaneous Approach, New Technology Group 5 (ICD-10-PCS; principal; 2022-05-16)
PROC: HZ2ZZZZ Detoxification Services for Substance Abuse Treatment (ICD-10-PCS; 2022-05-16)
DX: U07.1 COVID-19 (principal); I50.33 Acute on chronic diastolic (congestive) heart failure; F11.20 Opioid dependence, uncomplicated; J44.1 Chronic obstructive pulmonary disease with (acute) exacerbation; J96.12 Chronic respiratory failure with hypercapnia; R60.1 Generalized edema; G47.33 Obstructive sleep apnea (adult) (pediatric); I11.0 Hypertensive heart disease with heart failure; F10.10 Alcohol abuse, uncomplicated; M54.50 Low back pain, unspecified; K76.0 Fatty (change of) liver, not elsewhere classified; E66.9 Obesity, unspecified; Z68.38 Body mass index [BMI] 38.0-38.9, adult; G47.00 Insomnia, unspecified; F32.A Depression, unspecified; F13.10 Sedative, hypnotic or anxiolytic abuse, uncomplicated; K59.00 Constipation, unspecified; Z96.653 Presence of artificial knee joint, bilateral
CPT/HCPCS: 0241U-QW; 36415; 71045-TC-FY; 71275-TC; 74174-TC; 80053; 80061; 81003; 82728; 82803; 82962; 83036; 83735; 83880; 84100; 84443; 84484; 85025; 85379; 85651; 86140; 93005; 93010; 93970-TC; 94640; 99285-25; C9399; G0378; J1100; Q9967

== ENCOUNTER 2022-06-18 21:04 | Inpatient (IN) | payer OTHER ==
[2022-06-18 21:41] VITALS: BMI 36.3
[2022-06-18] MEDS ORDERED: ALBUTEROL SO4 HFA INHALER IH PRN (21:50)
[2022-06-18] MEDS ORDERED: BISMUTH SUBSALICYLATE 524 MG/30 ML PO PRN (22:03)
[2022-06-18] MEDS ORDERED: LOPERAMIDE HCL 2 MG CAPSULE PO PRN (22:03)
[2022-06-18] MEDS ORDERED: POLYETHYLENE GLYCOL (HEALTHYLAX) 3350 17 GM PACKET PO PRN (22:03)
[2022-06-18] MEDS ORDERED: ONDANSETRON *ODT* 4 MG TABLET SL PRN (22:03)
[2022-06-18] MEDS ORDERED: hydrOXYzine PAMOATE 25 MG CAPSULE (FP) PO PRN (22:03)
[2022-06-18] MEDS ORDERED: P-EPHED 60MG/TRIPROLIDI 2.5MG TABLET PO PRN (22:03)
[2022-06-18] MEDS ORDERED: BENZONATATE 200 MG CAPSULE PO PRN (22:03)
[2022-06-18] MEDS ORDERED: NALOXONE HCL 0.4 MG/ML VIAL IM PRN (22:03)
[2022-06-18] MEDS ORDERED: DICYCLOMINE HCL 10 MG CAPSULE PO PRN (22:03)
[2022-06-18] MEDS ORDERED: guaiFENesin 600 MG TABLET.ER (FP) PO PRN (22:03)
[2022-06-18] MEDS ORDERED: MAGNESIUM HYDROX 2400MG/30ML ORAL SUSPENSION 30 ML CUP PO PRN (22:03)
[2022-06-18] MEDS ORDERED: NICOTINE POLACRILEX 2 MG GUM BUC PRN (22:03)
[2022-06-18] MEDS ORDERED: BENZOCAINE/MENTHOL (CHLORASEPTIC ) LOZENGE MM PRN (22:03)
[2022-06-18] MEDS ORDERED: MAG HYDROX/AL HYDROX/SIMETH 30 ML UNIT-DOSE CUP PO PRN (22:03)
[2022-06-18] MEDS ORDERED: NALOXONE HCL (KLOXXADO) 8 MG SPRAY NS PRN (22:03)
[2022-06-18] MEDS ORDERED: NICOTINE 10 MG CARTRIDGE (INHALER) IH PRN (22:03)
[2022-06-19] MEDS: chlordiazePOXIDE HCL 25 MG CAPSULE PO SCH ×4 (04:31→22:18)
[2022-06-19] MEDS: P-EPHED 60MG/TRIPROLIDI 2.5MG TABLET PO PRN (05:06)
[2022-06-19] MEDS: DOCUSATE SODIUM 100 MG CAPSULE (FP) PO SCH ×4 (05:23→22:18)
[2022-06-19] MEDS ORDERED: methaDONE HCL 10 MG TABLET (FOR DETOX USE ONLY) PO ONE (09:45)
[2022-06-19] MEDS: PRENATAL VITAMINS W/ FOLIC ACID TABLET (FP) PO SCH (10:11)
[2022-06-19] MEDS: HYDROCHLOROTHIAZIDE 12.5 MG CAPSULE (FP) PO SCH (10:11)
[2022-06-19] MEDS: BUDESONIDE/FORMETEROL FUMARATE 160/4.5 mcg INHALER IH SCH ×3 (10:48→22:19)
[2022-06-19 11:26] LABS: ALBUMIN 3.7 g/dl (3.4-5.0); BLOOD UREA NITROGEN 14.6 mg/dL (7-18); CALCIUM 8.8 mg/dL (8.5-10.1)
[2022-06-19 11:27] LABS: HEMATOCRIT 37.5 % (35.4-49); HEMOGLOBIN 12.2 GM/dL (11.7-16.9); MCH 28.3 pg (25.7-33.7); MCHC 32.6 g/dl (32.0-35.9); MEAN CELL VOLUME 87.1 fl (80-96); MEAN PLT VOLUME 8.7 fl (7.5-11.1); PLATELET COUNT 155 10^3/uL (134-434); RBC 4.31 M/mm3 (4.00-5.60); RDW 17.1 % (11.9-15.9); WHITE BLOOD COUNT 4.5 K/mm3 (4.0-10.0)
[2022-06-19 11:29] LABS: CREATININE 0.7 mg/dL (0.55-1.3)
[2022-06-19 11:31] LABS: BILIRUBIN,TOTAL 0.9 mg/dL (0.2-1); TOT PROT 7.1 g/dl (6.4-8.2)
[2022-06-19] MEDS: ALBUTEROL SO4 2.5/IPRATROPIUM 0.5 INH SOL 3 ML VIAL.NEB. NEB PRN ×2 (12:09→22:28)
[2022-06-19] MEDS: chlordiazePOXIDE HCL 25 MG CAPSULE PO PRN (13:17)
[2022-06-19] MEDS ORDERED: predniSONE 20 MG TABLET (UD) PO ONE (13:30)
[2022-06-19] MEDS: cloNIDine HCL 0.1 MG TABLET PO PRN (21:13)
[2022-06-19] MEDS: MELATONIN 5 MG TABLETS PO PRN (22:18)
[2022-06-19] MEDS: THIAMINE HCL 100 MG TABLET (FP) PO SCH (22:18)
[2022-06-19] MEDS: IBUPROFEN 600 MG TABLET (FP) PO PRN (22:23)
[2022-06-20] MEDS: chlordiazePOXIDE HCL 25 MG CAPSULE PO PRN ×2 (00:03→13:12)
[2022-06-20] MEDS: DOCUSATE SODIUM 100 MG CAPSULE (FP) PO SCH ×3 (05:23→22:04)
[2022-06-20] MEDS: chlordiazePOXIDE HCL 10 MG CAPSULE PO SCH ×4 (05:23→22:04)
[2022-06-20] MEDS: IBUPROFEN 400 MG TABLET (FP) PO PRN (05:24)
[2022-06-20] MEDS ORDERED: predniSONE 10 MG TABLET (UD) PO ONE (10:00)
[2022-06-20] MEDS: PRENATAL VITAMINS W/ FOLIC ACID TABLET (FP) PO SCH (10:27)
[2022-06-20] MEDS: HYDROCHLOROTHIAZIDE 12.5 MG CAPSULE (FP) PO SCH (10:27)
[2022-06-20] MEDS: BUDESONIDE/FORMETEROL FUMARATE 160/4.5 mcg INHALER IH SCH ×2 (10:30→22:05)
[2022-06-20] MEDS: ACETAMINOPHEN 325 MG TABLET (FP) PO PRN ×2 (10:33→22:05)
[2022-06-20] MEDS: IBUPROFEN 600 MG TABLET (FP) PO PRN (17:25)
[2022-06-20] MEDS: THIAMINE HCL 100 MG TABLET (FP) PO SCH (22:04)
[2022-06-20] MEDS: MELATONIN 5 MG TABLETS PO PRN (22:04)
[2022-06-20] MEDS: cloNIDine HCL 0.1 MG TABLET PO PRN (22:08)
[2022-06-21] MEDS ORDERED: chlordiazePOXIDE HCL 10 MG CAPSULE PO PRN
[2022-06-21] MEDS: IBUPROFEN 400 MG TABLET (FP) PO PRN (05:44)
[2022-06-21] MEDS: DOCUSATE SODIUM 100 MG CAPSULE (FP) PO SCH ×3 (05:45→22:31)
[2022-06-21] MEDS: chlordiazePOXIDE HCL 10 MG CAPSULE PO SCH ×2 (05:45→17:33)
[2022-06-21] MEDS: cloNIDine HCL 0.1 MG TABLET PO PRN ×2 (07:54→22:33)
[2022-06-21] MEDS ORDERED: methaDONE HCL 10 MG TABLET (FOR DETOX USE ONLY) PO ONE (10:00)
[2022-06-21] MEDS ORDERED: predniSONE 20 MG TABLET (UD) PO ONE (10:00)
[2022-06-21] MEDS: PRENATAL VITAMINS W/ FOLIC ACID TABLET (FP) PO SCH (10:20)
[2022-06-21] MEDS: HYDROCHLOROTHIAZIDE 12.5 MG CAPSULE (FP) PO SCH (10:20)
[2022-06-21] MEDS: BUDESONIDE/FORMETEROL FUMARATE 160/4.5 mcg INHALER IH SCH ×2 (10:20→22:32)
[2022-06-21] MEDS: IBUPROFEN 600 MG TABLET (FP) PO PRN (17:36)
[2022-06-21] MEDS: P-EPHED 60MG/TRIPROLIDI 2.5MG TABLET PO PRN (17:38)
[2022-06-21] MEDS ORDERED: MIRTAZAPINE 15 MG TABLET (FP) PO SCH (22:00)
[2022-06-21] MEDS: MIRTAZAPINE 15 MG TABLET (FP) PO SCH (22:31)
[2022-06-21] MEDS: THIAMINE HCL 100 MG TABLET (FP) PO SCH (22:31)
[2022-06-21] MEDS: MELATONIN 5 MG TABLETS PO PRN (22:31)
[2022-06-22] MEDS ORDERED: chlordiazePOXIDE HCL 10 MG CAPSULE PO ONE (05:00)
[2022-06-22] MEDS: DOCUSATE SODIUM 100 MG CAPSULE (FP) PO SCH ×3 (06:37→21:54)
[2022-06-22] MEDS ORDERED: predniSONE 10 MG TABLET (UD) PO ONE (10:00)
[2022-06-22] MEDS: PRENATAL VITAMINS W/ FOLIC ACID TABLET (FP) PO SCH (10:44)
[2022-06-22] MEDS: HYDROCHLOROTHIAZIDE 12.5 MG CAPSULE (FP) PO SCH (10:44)
[2022-06-22] MEDS: BUDESONIDE/FORMETEROL FUMARATE 160/4.5 mcg INHALER IH SCH ×2 (10:47→21:56)
[2022-06-22] MEDS ORDERED: hydrOXYzine PAMOATE 25 MG CAPSULE (FP) PO ONE (11:46)
[2022-06-22] MEDS: IBUPROFEN 600 MG TABLET (FP) PO PRN (12:29)
[2022-06-22] MEDS ORDERED: hydrOXYzine PAMOATE 25 MG CAPSULE (FP) PO SCH (14:00)
[2022-06-22] MEDS ORDERED: diazePAM 5 MG TABLET PO ONE (15:47)
[2022-06-22] MEDS: THIAMINE HCL 100 MG TABLET (FP) PO SCH (21:54)
[2022-06-22] MEDS: MELATONIN 5 MG TABLETS PO PRN (21:54)
[2022-06-22] MEDS: MIRTAZAPINE 15 MG TABLET (FP) PO SCH (21:54)
[2022-06-23] MEDS: DOCUSATE SODIUM 100 MG CAPSULE (FP) PO SCH (05:31)
[2022-06-23] MEDS: IBUPROFEN 600 MG TABLET (FP) PO PRN (05:34)
[2022-06-23 09:12] VITALS: BP 136/88; PULSE 74; RESP 20; TEMP 97.3
[2022-06-23] MEDS: PRENATAL VITAMINS W/ FOLIC ACID TABLET (FP) PO SCH (09:25)
[2022-06-23] MEDS: HYDROCHLOROTHIAZIDE 12.5 MG CAPSULE (FP) PO SCH (09:25)
[2022-06-23] MEDS: BUDESONIDE/FORMETEROL FUMARATE 160/4.5 mcg INHALER IH SCH (09:25)
[2022-06-23] MEDS ORDERED: predniSONE 5 MG TABLET (UD) PO ONE (10:00)
[2022-06-23] MEDS ORDERED: methaDONE HCL 10 MG TABLET (FOR DETOX USE ONLY) PO ONE (10:00)
== END 2022-06-23 09:37 | disposition home or self-care (01) | DRG 897 ==
LOC: YASAS 21:04 → Y3N 22:52
PROVIDERS: ADMIT Allergy & Immunology; ATTEND Surgery
PROC: HZ2ZZZZ Detoxification Services for Substance Abuse Treatment (ICD-10-PCS; principal; 2022-06-18)
DX: F11.23 Opioid dependence with withdrawal (principal); J44.1 Chronic obstructive pulmonary disease with (acute) exacerbation; F10.230 Alcohol dependence with withdrawal, uncomplicated; F17.210 Nicotine dependence, cigarettes, uncomplicated; F19.24 Other psychoactive substance dependence with psychoactive substance-induced mood disorder; G47.00 Insomnia, unspecified; G47.30 Sleep apnea, unspecified; I10 Essential (primary) hypertension; M54.50 Low back pain, unspecified; Z96.653 Presence of artificial knee joint, bilateral; E66.9 Obesity, unspecified; Z68.39 Body mass index [BMI] 39.0-39.9, adult; Z86.16 Personal history of COVID-19
CPT/HCPCS: 36415; 80053; 85027; 86780; 87811; 94640; C9803-CS; U0003; U0005

== ENCOUNTER 2022-06-19 15:46 | Emergency (ER) | payer OTHER ==
[2022-06-19 16:09] VITALS: RESP 20; BMI 39.5
[2022-06-19] MEDS ORDERED: chlordiazePOXIDE HCL 25 MG CAPSULE PO ONE (16:44)
[2022-06-19] MEDS ORDERED: methylPREDNISolone NA SUCC 125 MG/2 ML VIAL IVPUSH ONE (16:44)
[2022-06-19] MEDS ORDERED: ALBUTEROL SO4 2.5/IPRATROPIUM 0.5 INH SOL 3 ML VIAL.NEB. NEB ONE (16:54)
[2022-06-19] MEDS ORDERED: chlordiazePOXIDE HCL 25 MG CAPSULE ONE (16:54)
[2022-06-19] MEDS ORDERED: methylPREDNISolone NA SUCC 125 MG/2 ML VIAL ONE ×2 (16:54→17:03)
[2022-06-19] MEDS: ALBUTEROL SO4 2.5/IPRATROPIUM 0.5 INH SOL 3 ML VIAL.NEB. NEB SCH ×4 (17:05→17:35)
[2022-06-19 17:44] LABS: VENOUS BASE EXCESS 8.6 mmol/L (-2-2); VENOUS O2 SATURATION 35.7 % (70-80); VENOUS PH 7.326 (7.310-7.410)
[2022-06-19 17:45] LABS: VENOUS PCO2 73.4 mmHg (38-52)
[2022-06-19 17:48] LABS: HEMATOCRIT 38.4 % (35.4-49); HEMOGLOBIN 12.4 GM/dL (11.7-16.9); MCH 28.1 pg (25.7-33.7); MCHC 32.3 g/dl (32.0-35.9); MEAN CELL VOLUME 87.1 fl (80-96); MEAN PLT VOLUME 10.4 fl (7.5-11.1); PLATELET COUNT 170 10^3/uL (134-434); RBC 4.41 M/mm3 (4.00-5.60); RDW 17.4 % (11.9-15.9); WHITE BLOOD COUNT 4.3 K/mm3 (4.0-10.0)
[2022-06-19 18:03] LABS: CHLORIDE 98 mmol/L (98-107); SODIUM 134 mmol/L (136-145)
[2022-06-19 18:04] LABS: CALCIUM 8.9 mg/dL (8.5-10.1)
[2022-06-19 18:05] LABS: ALBUMIN 3.7 g/dl (3.4-5.0); BLOOD UREA NITROGEN 12.8 mg/dL (7-18); CO2 34 mmol/L (21-32); GLUCOSE,RANDOM 116 mg/dL (74-106); MAGNESIUM 1.8 mg/dL (1.8-2.4)
[2022-06-19 18:08] LABS: CREATININE 0.7 mg/dL (0.55-1.3); SGOT/AST 84 U/L (15-37); SGPT/ALT 77 U/L (13-61)
[2022-06-19 18:10] LABS: BILIRUBIN,TOTAL 0.8 mg/dL (0.2-1); TOT PROT 7.8 g/dl (6.4-8.2)
[2022-06-19 18:11] LABS: ALK PHOS 69 U/L (45-117)
[2022-06-19 18:13] LABS: N-TERMINAL BNP 155.5 pg/ml (5-125)
[2022-06-19 18:15] LABS: ANION GAP 2 MMOL/L (8-16)
[2022-06-19 18:37] LABS: ANISOCYTOSIS 1+; MACROCYTOSIS 0; TARGET CELLS 2+
[2022-06-19 19:05] VITALS: BP 178/89; PULSE 78; TEMP 99.2
== END 2022-06-19 19:07 | disposition home or self-care (01) ==
LOC: JER 15:46
PROC: 3E033GC Introduction of Other Therapeutic Substance into Peripheral Vein, Percutaneous Approach (ICD-10-PCS; principal; 2022-06-19)
PROC: 3E0F7GC Introduction of Other Therapeutic Substance into Respiratory Tract, Via Natural or Artificial Opening (ICD-10-PCS; 2022-06-19)
DX: J44.1 Chronic obstructive pulmonary disease with (acute) exacerbation (principal); R06.02 Shortness of breath; R06.2 Wheezing; Z20.822 Contact with and (suspected) exposure to COVID-19
CPT/HCPCS: 0241U-QW; 36415; 71045-TC-FY; 80053; 82803; 83735; 83880; 84484; 85025; 93005; 93010; 94640; 96374; 99285-25

== ENCOUNTER 2022-07-18 20:37 | Inpatient (IN) | payer OTHER ==
[2022-07-18 21:27] VITALS: BMI 39.5
[2022-07-18] MEDS ORDERED: MAGNESIUM HYDROX 2400MG/30ML ORAL SUSPENSION 30 ML CUP PO PRN (21:41)
[2022-07-18] MEDS ORDERED: IBUPROFEN 600 MG TABLET (FP) PO PRN (21:41)
[2022-07-18] MEDS ORDERED: MAG HYDROX/AL HYDROX/SIMETH 30 ML UNIT-DOSE CUP PO PRN (21:41)
[2022-07-18] MEDS ORDERED: guaiFENesin 600 MG TABLET.ER (FP) PO PRN (21:41)
[2022-07-18] MEDS ORDERED: NICOTINE POLACRILEX 2 MG GUM BUC PRN (21:41)
[2022-07-18] MEDS ORDERED: ONDANSETRON *ODT* 4 MG TABLET SL PRN (21:41)
[2022-07-18] MEDS ORDERED: methaDONE HCL 10 MG TABLET (FOR DETOX USE ONLY) PO ONE (21:41)
[2022-07-18] MEDS ORDERED: ACETAMINOPHEN 325 MG TABLET (FP) PO PRN (21:41)
[2022-07-18] MEDS ORDERED: NALOXONE HCL 0.4 MG/ML VIAL IM PRN (21:41)
[2022-07-18] MEDS ORDERED: LOPERAMIDE HCL 2 MG CAPSULE PO PRN (21:41)
[2022-07-18] MEDS ORDERED: IBUPROFEN 400 MG TABLET (FP) PO PRN (21:41)
[2022-07-18] MEDS ORDERED: BENZOCAINE/MENTHOL (CHLORASEPTIC ) LOZENGE MM PRN (21:41)
[2022-07-18] MEDS ORDERED: cloNIDine HCL 0.1 MG TABLET PO PRN (21:41)
[2022-07-18] MEDS ORDERED: POLYETHYLENE GLYCOL (HEALTHYLAX) 3350 17 GM PACKET PO PRN (21:41)
[2022-07-18] MEDS ORDERED: BENZONATATE 200 MG CAPSULE PO PRN (21:41)
[2022-07-18] MEDS ORDERED: NALOXONE HCL (KLOXXADO) 8 MG SPRAY NS PRN (21:41)
[2022-07-18] MEDS ORDERED: BISMUTH SUBSALICYLATE 524 MG/30 ML PO PRN (21:41)
[2022-07-18] MEDS ORDERED: DICYCLOMINE HCL 10 MG CAPSULE PO PRN (21:41)
[2022-07-18] MEDS: chlordiazePOXIDE HCL 25 MG CAPSULE PO PRN (23:54)
[2022-07-18] MEDS ORDERED: methaDONE HCL 10 MG TABLET PO ONE (23:54)
[2022-07-18] MEDS: MELATONIN 5 MG TABLETS PO SCH (23:55)
[2022-07-18] MEDS: chlordiazePOXIDE HCL 25 MG CAPSULE PO SCH (23:55)
[2022-07-18] MEDS: THIAMINE HCL 100 MG TABLET (FP) PO SCH (23:55)
[2022-07-19] MEDS: chlordiazePOXIDE HCL 25 MG CAPSULE PO SCH ×4 (05:38→22:14)
[2022-07-19] MEDS ORDERED: ALBUTEROL SO4 HFA INHALER IH PRN (10:12)
[2022-07-19] MEDS: PRENATAL VITAMINS W/ FOLIC ACID TABLET (FP) PO SCH (10:14)
[2022-07-19] MEDS: METHOCARBAMOL 500 MG TABLET PO PRN (10:14)
[2022-07-19] MEDS: NICOTINE 14 MG/24 HOURS TOPICAL PATCH TD SCH (10:16)
[2022-07-19] MEDS: HYDROCHLOROTHIAZIDE 12.5 MG CAPSULE (FP) PO SCH (10:49)
[2022-07-19 12:54] LABS: POTASSIUM 3.9 mmol/L (3.5-5.1)
[2022-07-19 12:59] LABS: ALBUMIN 3.4 g/dl (3.4-5.0); CALCIUM 8.8 mg/dL (8.5-10.1)
[2022-07-19 13:01] LABS: BLOOD UREA NITROGEN 17.8 mg/dL (7-18)
[2022-07-19 13:02] LABS: CREATININE 0.7 mg/dL (0.55-1.3)
[2022-07-19 13:03] LABS: TOT PROT 6.4 g/dl (6.4-8.2)
[2022-07-19 13:04] LABS: BILIRUBIN,TOTAL 0.5 mg/dL (0.2-1)
[2022-07-19] MEDS: DOCUSATE SODIUM 100 MG CAPSULE (FP) PO SCH ×2 (13:07→22:13)
[2022-07-19 13:13] LABS: HEMATOCRIT 35.7 % (35.4-49); HEMOGLOBIN 11.6 GM/dL (11.7-16.9); MCH 28.8 pg (25.7-33.7); MCHC 32.6 g/dl (32.0-35.9); MEAN CELL VOLUME 88.1 fl (80-96); MEAN PLT VOLUME 9.6 fl (7.5-11.1); PLATELET COUNT 147 10^3/uL (134-434); RBC 4.05 M/mm3 (4.00-5.60); RDW 17.1 % (11.9-15.9); WHITE BLOOD COUNT 4.5 K/mm3 (4.0-10.0)
[2022-07-19] MEDS: THIAMINE HCL 100 MG TABLET (FP) PO SCH (22:13)
[2022-07-19] MEDS: MELATONIN 5 MG TABLETS PO SCH (22:14)
[2022-07-19] MEDS: BUDESONIDE/FORMETEROL FUMARATE 160/4.5 mcg INHALER IH SCH (22:29)
[2022-07-20] MEDS: DOCUSATE SODIUM 100 MG CAPSULE (FP) PO SCH ×3 (05:32→22:37)
[2022-07-20] MEDS: chlordiazePOXIDE HCL 25 MG CAPSULE PO SCH ×4 (05:32→22:38)
[2022-07-20] MEDS ORDERED: methaDONE HCL 10 MG TABLET (FOR DETOX USE ONLY) PO ONE (10:00)
[2022-07-20] MEDS: BUDESONIDE/FORMETEROL FUMARATE 160/4.5 mcg INHALER IH SCH ×2 (10:25→22:38)
[2022-07-20] MEDS: NICOTINE 14 MG/24 HOURS TOPICAL PATCH TD SCH (10:25)
[2022-07-20] MEDS: PRENATAL VITAMINS W/ FOLIC ACID TABLET (FP) PO SCH (10:27)
[2022-07-20] MEDS: HYDROCHLOROTHIAZIDE 12.5 MG CAPSULE (FP) PO SCH (10:28)
[2022-07-20] MEDS: chlordiazePOXIDE HCL 25 MG CAPSULE PO PRN (14:03)
[2022-07-20] MEDS: THIAMINE HCL 100 MG TABLET (FP) PO SCH (22:37)
[2022-07-20] MEDS: METHOCARBAMOL 500 MG TABLET PO PRN (22:40)
[2022-07-20] MEDS: SUVOREXANT 10 MG TABLET PO PRN (22:40)
[2022-07-21] MEDS ORDERED: chlordiazePOXIDE HCL 10 MG CAPSULE PO PRN
[2022-07-21] MEDS: chlordiazePOXIDE HCL 10 MG CAPSULE PO SCH ×4 (05:29→22:27)
[2022-07-21] MEDS: DOCUSATE SODIUM 100 MG CAPSULE (FP) PO SCH ×3 (05:29→22:27)
[2022-07-21] MEDS: BUDESONIDE/FORMETEROL FUMARATE 160/4.5 mcg INHALER IH SCH ×2 (10:14→22:27)
[2022-07-21] MEDS: NICOTINE 14 MG/24 HOURS TOPICAL PATCH TD SCH (10:14)
[2022-07-21] MEDS: PRENATAL VITAMINS W/ FOLIC ACID TABLET (FP) PO SCH (10:15)
[2022-07-21] MEDS: HYDROCHLOROTHIAZIDE 12.5 MG CAPSULE (FP) PO SCH (10:15)
[2022-07-21] MEDS: METHOCARBAMOL 500 MG TABLET PO PRN ×2 (10:20→17:24)
[2022-07-21] MEDS ORDERED: DOCUSATE SODIUM 100 MG CAPSULE (FP) PO PRN (14:27)
[2022-07-21] MEDS: TAMSULOSIN HCL 0.4 MG CAP PO SCH (15:08)
[2022-07-21] MEDS: THIAMINE HCL 100 MG TABLET (FP) PO SCH (22:26)
[2022-07-21] MEDS: SUVOREXANT 10 MG TABLET PO PRN (22:29)
[2022-07-22] MEDS ORDERED: chlordiazePOXIDE HCL 10 MG CAPSULE PO SCH (05:00)
[2022-07-22] MEDS: DOCUSATE SODIUM 100 MG CAPSULE (FP) PO SCH (05:42)
[2022-07-22] MEDS: BUDESONIDE/FORMETEROL FUMARATE 160/4.5 mcg INHALER IH SCH (09:51)
[2022-07-22] MEDS: NICOTINE 14 MG/24 HOURS TOPICAL PATCH TD SCH (09:51)
[2022-07-22] MEDS: TAMSULOSIN HCL 0.4 MG CAP PO SCH (09:55)
[2022-07-22] MEDS: PRENATAL VITAMINS W/ FOLIC ACID TABLET (FP) PO SCH (09:55)
[2022-07-22] MEDS: HYDROCHLOROTHIAZIDE 12.5 MG CAPSULE (FP) PO SCH (09:55)
[2022-07-22] MEDS: METHOCARBAMOL 500 MG TABLET PO PRN (09:55)
[2022-07-22 09:58] VITALS: BP 127/65; PULSE 70; RESP 18; TEMP 97.7
[2022-07-22] MEDS ORDERED: methaDONE HCL 10 MG TABLET (FOR DETOX USE ONLY) PO ONE (10:00)
[2022-07-23] MEDS ORDERED: chlordiazePOXIDE HCL 10 MG CAPSULE PO ONE (05:00)
== END 2022-07-22 10:55 | disposition home or self-care (01) | DRG 897 ==
LOC: YASAS 20:37 → Y6N 22:00
PROVIDERS: ADMIT Allergy & Immunology; ATTEND Surgery
PROC: HZ2ZZZZ Detoxification Services for Substance Abuse Treatment (ICD-10-PCS; principal; 2022-07-18)
DX: F11.23 Opioid dependence with withdrawal (principal); F19.282 Other psychoactive substance dependence with psychoactive substance-induced sleep disorder; J44.1 Chronic obstructive pulmonary disease with (acute) exacerbation; F10.230 Alcohol dependence with withdrawal, uncomplicated; F17.210 Nicotine dependence, cigarettes, uncomplicated; I10 Essential (primary) hypertension; G47.30 Sleep apnea, unspecified; M54.50 Low back pain, unspecified; E66.9 Obesity, unspecified; Z68.39 Body mass index [BMI] 39.0-39.9, adult; Z86.16 Personal history of COVID-19; Z96.653 Presence of artificial knee joint, bilateral
CPT/HCPCS: 36415; 80053; 85027; 86780; C9803-CS; U0003; U0005

== ENCOUNTER 2022-08-14 05:00 | Inpatient (IN) | payer OTHER ==
[2022-08-14 05:33] VITALS: BMI 38.8
[2022-08-14] MEDS ORDERED: POLYETHYLENE GLYCOL (HEALTHYLAX) 3350 17 GM PACKET PO PRN (09:12)
[2022-08-14] MEDS ORDERED: DICYCLOMINE HCL 10 MG CAPSULE PO PRN (09:12)
[2022-08-14] MEDS ORDERED: NICOTINE POLACRILEX 2 MG GUM BUC PRN (09:12)
[2022-08-14] MEDS ORDERED: ACETAMINOPHEN 325 MG TABLET (FP) PO PRN (09:12)
[2022-08-14] MEDS ORDERED: MAG HYDROX/AL HYDROX/SIMETH 30 ML UNIT-DOSE CUP PO PRN (09:12)
[2022-08-14] MEDS ORDERED: AMMONIUM LACTATE 12% LOTION 225 GM BOTTLE TP PRN (09:12)
[2022-08-14] MEDS ORDERED: BISMUTH SUBSALICYLATE 524 MG/30 ML PO PRN (09:12)
[2022-08-14] MEDS ORDERED: guaiFENesin 600 MG TABLET.ER (FP) PO PRN (09:12)
[2022-08-14] MEDS ORDERED: BENZOCAINE/MENTHOL (CHLORASEPTIC ) LOZENGE MM PRN (09:12)
[2022-08-14] MEDS ORDERED: NALOXONE HCL (KLOXXADO) 8 MG SPRAY NS PRN (09:12)
[2022-08-14] MEDS ORDERED: COLLOIDAL OATMEAL 1 BAR EACH TP PRN (09:12)
[2022-08-14] MEDS ORDERED: NALOXONE HCL 0.4 MG/ML VIAL IM PRN (09:12)
[2022-08-14] MEDS ORDERED: cloNIDine HCL 0.1 MG TABLET PO PRN (09:12)
[2022-08-14] MEDS ORDERED: NICOTINE 10 MG CARTRIDGE (INHALER) IH PRN (09:12)
[2022-08-14] MEDS ORDERED: MAGNESIUM HYDROX 2400MG/30ML ORAL SUSPENSION 30 ML CUP PO PRN (09:12)
[2022-08-14] MEDS ORDERED: BENZONATATE 200 MG CAPSULE PO PRN (09:12)
[2022-08-14] MEDS ORDERED: IBUPROFEN 400 MG TABLET (FP) PO PRN (09:12)
[2022-08-14] MEDS ORDERED: LOPERAMIDE HCL 2 MG CAPSULE PO PRN (09:12)
[2022-08-14] MEDS ORDERED: ONDANSETRON *ODT* 4 MG TABLET SL PRN (09:12)
[2022-08-14] MEDS ORDERED: methaDONE HCL 10 MG TABLET (FOR DETOX USE ONLY) ONE (09:28)
[2022-08-14] MEDS: methaDONE HCL 10 MG TABLET (FOR DETOX USE ONLY) PO ONE ×2 (09:39→11:04)
[2022-08-14] MEDS: PRENATAL VITAMINS W/ FOLIC ACID TABLET (FP) PO SCH (10:46)
[2022-08-14] MEDS: TAMSULOSIN HCL 0.4 MG CAP PO SCH (10:47)
[2022-08-14] MEDS: HYDROCHLOROTHIAZIDE 12.5 MG CAPSULE (FP) PO SCH (10:47)
[2022-08-14] MEDS: chlordiazePOXIDE HCL 25 MG CAPSULE PO SCH ×3 (10:47→22:16)
[2022-08-14] MEDS: NICOTINE 21 MG/24 HOURS TOPICAL PATCH TD SCH (11:04)
[2022-08-14] MEDS ORDERED: ALBUTEROL SO4 0.083% IH SOL 2.5 MG/3 ML VIAL.NEB. NEB PRN (13:41)
[2022-08-14] MEDS ORDERED: P-EPHED 60MG/TRIPROLIDI 2.5MG TABLET PO PRN (13:41)
[2022-08-14 14:14] LABS: HEMATOCRIT 39.4 % (35.4-49); HEMOGLOBIN 12.3 GM/dL (11.7-16.9); MCH 27.9 pg (25.7-33.7); MCHC 31.1 g/dl (32.0-35.9); MEAN CELL VOLUME 89.5 fl (80-96); MEAN PLT VOLUME 9.7 fl (7.5-11.1); PLATELET COUNT 178 10^3/uL (134-434); RBC 4.41 M/mm3 (4.00-5.60); RDW 16.3 % (11.9-15.9); WHITE BLOOD COUNT 5.7 K/mm3 (4.0-10.0)
[2022-08-14 14:24] LABS: POTASSIUM 3.7 mmol/L (3.5-5.1)
[2022-08-14 14:31] LABS: ALBUMIN 3.7 g/dl (3.4-5.0); BLOOD UREA NITROGEN 18.7 mg/dL (7-18)
[2022-08-14 14:33] LABS: CREATININE 0.9 mg/dL (0.55-1.3)
[2022-08-14 14:35] LABS: TOT PROT 7.2 g/dl (6.4-8.2)
[2022-08-14 14:36] LABS: BILIRUBIN,TOTAL 0.4 mg/dL (0.2-1)
[2022-08-14] MEDS: LORATADINE 10 MG TABLET PO SCH (14:45)
[2022-08-14] MEDS: MELATONIN 5 MG TABLETS PO SCH (22:16)
[2022-08-14] MEDS: THIAMINE HCL 100 MG TABLET (FP) PO SCH (22:16)
[2022-08-14] MEDS: MIRTAZAPINE 15 MG TABLET (FP) PO SCH (22:16)
[2022-08-14] MEDS: P-EPHED 60MG/TRIPROLIDI 2.5MG TABLET PO PRN (22:23)
[2022-08-15] MEDS: chlordiazePOXIDE HCL 25 MG CAPSULE PO SCH ×4 (05:33→22:08)
[2022-08-15] MEDS: METHOCARBAMOL 500 MG TABLET PO PRN (05:34)
[2022-08-15] MEDS: PRENATAL VITAMINS W/ FOLIC ACID TABLET (FP) PO SCH (10:07)
[2022-08-15] MEDS: TAMSULOSIN HCL 0.4 MG CAP PO SCH (10:07)
[2022-08-15] MEDS: HYDROCHLOROTHIAZIDE 12.5 MG CAPSULE (FP) PO SCH (10:07)
[2022-08-15] MEDS: NICOTINE 21 MG/24 HOURS TOPICAL PATCH TD SCH (10:07)
[2022-08-15] MEDS: LORATADINE 10 MG TABLET PO SCH (10:07)
[2022-08-15] MEDS: IBUPROFEN 600 MG TABLET (FP) PO PRN (10:11)
[2022-08-15] MEDS ORDERED: LORazepam 1 MG TABLET PO PRN (10:18)
[2022-08-15] MEDS ORDERED: chlordiazePOXIDE HCL 25 MG CAPSULE PO PRN (10:40)
[2022-08-15] MEDS ORDERED: LORazepam 2 MG TABLET PO SCH (17:00)
[2022-08-15] MEDS: BISACODYL 5 MG TABLET.DR (FP) PO PRN (17:34)
[2022-08-15] MEDS: P-EPHED 60MG/TRIPROLIDI 2.5MG TABLET PO PRN (17:36)
[2022-08-15] MEDS: MIRTAZAPINE 15 MG TABLET (FP) PO SCH (22:07)
[2022-08-15] MEDS: THIAMINE HCL 100 MG TABLET (FP) PO SCH (22:07)
[2022-08-15] MEDS: MELATONIN 5 MG TABLETS PO SCH (22:07)
[2022-08-16] MEDS ORDERED: chlordiazePOXIDE HCL 25 MG CAPSULE PO SCH (05:00)
[2022-08-16] MEDS ORDERED: LORazepam 1 MG TABLET PO SCH (05:00)
[2022-08-16] MEDS: METHOCARBAMOL 500 MG TABLET PO PRN ×2 (05:57→17:26)
[2022-08-16] MEDS: IBUPROFEN 600 MG TABLET (FP) PO PRN ×2 (05:57→17:26)
[2022-08-16] MEDS: chlordiazePOXIDE HCL 25 MG CAPSULE PO SCH ×4 (05:58→22:46)
[2022-08-16] MEDS ORDERED: methaDONE HCL 10 MG TABLET (FOR DETOX USE ONLY) PO ONE (10:00)
[2022-08-16] MEDS: LORATADINE 10 MG TABLET PO SCH (10:17)
[2022-08-16] MEDS: HYDROCHLOROTHIAZIDE 12.5 MG CAPSULE (FP) PO SCH (10:17)
[2022-08-16] MEDS: NICOTINE 21 MG/24 HOURS TOPICAL PATCH TD SCH (10:17)
[2022-08-16] MEDS: TAMSULOSIN HCL 0.4 MG CAP PO SCH (10:17)
[2022-08-16] MEDS: PRENATAL VITAMINS W/ FOLIC ACID TABLET (FP) PO SCH (10:17)
[2022-08-16] MEDS: BISACODYL 5 MG TABLET.DR (FP) PO PRN (17:26)
[2022-08-16] MEDS: DOCUSATE SODIUM 100 MG CAPSULE (FP) PO PRN (17:26)
[2022-08-16] MEDS: THIAMINE HCL 100 MG TABLET (FP) PO SCH (22:45)
[2022-08-16] MEDS: MIRTAZAPINE 15 MG TABLET (FP) PO SCH (22:45)
[2022-08-16] MEDS: MELATONIN 5 MG TABLETS PO SCH (22:45)
[2022-08-17] MEDS ORDERED: LORazepam 0.5 MG TABLET PO PRN
[2022-08-17] MEDS: METHOCARBAMOL 500 MG TABLET PO PRN ×2 (03:43→22:16)
[2022-08-17] MEDS ORDERED: chlordiazePOXIDE HCL 10 MG CAPSULE PO SCH (05:00)
[2022-08-17] MEDS ORDERED: LORazepam 0.5 MG TABLET PO SCH (05:00)
[2022-08-17] MEDS: chlordiazePOXIDE HCL 25 MG CAPSULE PO SCH ×4 (05:35→22:17)
[2022-08-17] MEDS: HYDROCHLOROTHIAZIDE 12.5 MG CAPSULE (FP) PO SCH (10:04)
[2022-08-17] MEDS: TAMSULOSIN HCL 0.4 MG CAP PO SCH (10:04)
[2022-08-17] MEDS: DOCUSATE SODIUM 100 MG CAPSULE (FP) PO PRN (10:05)
[2022-08-17] MEDS: LORATADINE 10 MG TABLET PO SCH (10:05)
[2022-08-17] MEDS: NICOTINE 21 MG/24 HOURS TOPICAL PATCH TD SCH (10:05)
[2022-08-17] MEDS: PRENATAL VITAMINS W/ FOLIC ACID TABLET (FP) PO SCH (10:05)
[2022-08-17] MEDS: MIRTAZAPINE 15 MG TABLET (FP) PO SCH (22:16)
[2022-08-17] MEDS: MELATONIN 5 MG TABLETS PO SCH (22:16)
[2022-08-17] MEDS: BISACODYL 5 MG TABLET.DR (FP) PO PRN (22:16)
[2022-08-17] MEDS: THIAMINE HCL 100 MG TABLET (FP) PO SCH (22:16)
[2022-08-18] MEDS ORDERED: chlordiazePOXIDE HCL 10 MG CAPSULE PO PRN
[2022-08-18] MEDS ORDERED: chlordiazePOXIDE HCL 10 MG CAPSULE PO SCH (05:00)
[2022-08-18] MEDS ORDERED: LORazepam 0.5 MG TABLET PO ONE (05:00)
[2022-08-18] MEDS: chlordiazePOXIDE HCL 10 MG CAPSULE PO SCH ×2 (05:45→10:23)
[2022-08-18 09:20] VITALS: BP 120/68; PULSE 72; RESP 16; TEMP 98.8
[2022-08-18] MEDS ORDERED: methaDONE HCL 10 MG TABLET (FOR DETOX USE ONLY) PO ONE (10:00)
[2022-08-18] MEDS: LORATADINE 10 MG TABLET PO SCH (10:22)
[2022-08-18] MEDS: TAMSULOSIN HCL 0.4 MG CAP PO SCH (10:23)
[2022-08-18] MEDS: NICOTINE 21 MG/24 HOURS TOPICAL PATCH TD SCH (10:23)
[2022-08-18] MEDS: HYDROCHLOROTHIAZIDE 12.5 MG CAPSULE (FP) PO SCH (10:23)
[2022-08-18] MEDS: PRENATAL VITAMINS W/ FOLIC ACID TABLET (FP) PO SCH (10:23)
[2022-08-19] MEDS ORDERED: chlordiazePOXIDE HCL 10 MG CAPSULE PO SCH (05:00)
[2022-08-19] MEDS ORDERED: chlordiazePOXIDE HCL 10 MG CAPSULE PO ONE (05:00)
[2022-08-20] MEDS ORDERED: chlordiazePOXIDE HCL 10 MG CAPSULE PO ONE (05:00)
== END 2022-08-18 11:48 | disposition left against medical advice (07) | DRG 894 ==
LOC: YASAS 05:00 → Y3N 09:32
PROVIDERS: ADMIT Allergy & Immunology; ATTEND Surgery
PROC: HZ2ZZZZ Detoxification Services for Substance Abuse Treatment (ICD-10-PCS; principal; 2022-08-14)
DX: F11.23 Opioid dependence with withdrawal (principal); F10.230 Alcohol dependence with withdrawal, uncomplicated; F17.210 Nicotine dependence, cigarettes, uncomplicated; F19.24 Other psychoactive substance dependence with psychoactive substance-induced mood disorder; G47.00 Insomnia, unspecified; G47.30 Sleep apnea, unspecified; I10 Essential (primary) hypertension; J41.0 Simple chronic bronchitis; K21.9 Gastro-esophageal reflux disease without esophagitis; M54.50 Low back pain, unspecified; G89.29 Other chronic pain; N40.0 Benign prostatic hyperplasia without lower urinary tract symptoms; Z96.653 Presence of artificial knee joint, bilateral; E66.9 Obesity, unspecified; Z68.38 Body mass index [BMI] 38.0-38.9, adult; Z86.19 Personal history of other infectious and parasitic diseases; Z91.013 Allergy to seafood; Z91.012 Allergy to eggs
CPT/HCPCS: 36415; 80053; 85027; 86780; 87635; 94640

== ENCOUNTER 2022-10-24 23:15 | Inpatient (IN) | payer OTHER ==
[2022-10-25 00:19] VITALS: BMI 38.6
[2022-10-25] MEDS ORDERED: NALOXONE HCL (KLOXXADO) 8 MG SPRAY NS PRN (02:20)
[2022-10-25] MEDS ORDERED: BENZOCAINE/MENTHOL (CHLORASEPTIC ) LOZENGE MM PRN (02:20)
[2022-10-25] MEDS ORDERED: POLYETHYLENE GLYCOL (HEALTHYLAX) 3350 17 GM PACKET PO PRN (02:20)
[2022-10-25] MEDS ORDERED: ONDANSETRON *ODT* 4 MG TABLET SL PRN (02:20)
[2022-10-25] MEDS ORDERED: NALOXONE HCL 0.4 MG/ML VIAL IM PRN (02:20)
[2022-10-25] MEDS ORDERED: cloNIDine HCL 0.1 MG TABLET PO PRN (02:20)
[2022-10-25] MEDS ORDERED: MAGNESIUM HYDROX 2400MG/30ML ORAL SUSPENSION 30 ML CUP PO PRN (02:20)
[2022-10-25] MEDS ORDERED: NICOTINE POLACRILEX 2 MG GUM BUC PRN (02:20)
[2022-10-25] MEDS ORDERED: MAG HYDROX/AL HYDROX/SIMETH 30 ML UNIT-DOSE CUP PO PRN (02:20)
[2022-10-25] MEDS ORDERED: BENZONATATE 200 MG CAPSULE PO PRN (02:20)
[2022-10-25] MEDS ORDERED: LOPERAMIDE HCL 2 MG CAPSULE PO PRN (02:20)
[2022-10-25] MEDS ORDERED: guaiFENesin 600 MG TABLET.ER (FP) PO PRN (02:20)
[2022-10-25] MEDS ORDERED: methaDONE HCL 10 MG TABLET (FOR DETOX USE ONLY) PO ONE (02:20)
[2022-10-25] MEDS ORDERED: BISMUTH SUBSALICYLATE 524 MG/30 ML PO PRN (02:20)
[2022-10-25] MEDS ORDERED: chlordiazePOXIDE HCL 25 MG CAPSULE PO PRN (02:20)
[2022-10-25] MEDS ORDERED: ACETAMINOPHEN 325 MG TABLET (FP) PO PRN (02:20)
[2022-10-25] MEDS ORDERED: IBUPROFEN 400 MG TABLET (FP) PO PRN (02:20)
[2022-10-25] MEDS: chlordiazePOXIDE HCL 25 MG CAPSULE PO SCH ×4 (05:35→22:34)
[2022-10-25] MEDS ORDERED: DOCUSATE SODIUM 100 MG CAPSULE (FP) PO PRN (09:06)
[2022-10-25] MEDS ORDERED: ALBUTEROL SO4 0.083% IH SOL 2.5 MG/3 ML VIAL.NEB. NEB PRN (09:06)
[2022-10-25] MEDS: PRENATAL VITAMINS W/ FOLIC ACID TABLET (FP) PO SCH (10:13)
[2022-10-25] MEDS: HYDROCHLOROTHIAZIDE 12.5 MG CAPSULE (FP) PO SCH (10:13)
[2022-10-25] MEDS: NICOTINE 21 MG/24 HOURS TOPICAL PATCH TD SCH (10:13)
[2022-10-25] MEDS: AMITRIPTYLINE HCL 25 MG TABLET PO SCH (22:34)
[2022-10-25] MEDS: THIAMINE HCL 100 MG TABLET (FP) PO SCH (22:34)
[2022-10-25] MEDS: MELATONIN 5 MG TABLETS PO SCH (22:34)
[2022-10-26] MEDS: chlordiazePOXIDE HCL 25 MG CAPSULE PO SCH ×4 (05:46→22:48)
[2022-10-26] MEDS: TAMSULOSIN HCL 0.4 MG CAP PO SCH (07:28)
[2022-10-26] MEDS: PRENATAL VITAMINS W/ FOLIC ACID TABLET (FP) PO SCH (10:10)
[2022-10-26] MEDS: HYDROCHLOROTHIAZIDE 12.5 MG CAPSULE (FP) PO SCH (10:11)
[2022-10-26] MEDS: NICOTINE 21 MG/24 HOURS TOPICAL PATCH TD SCH (10:11)
[2022-10-26 11:18] LABS: HEMATOCRIT 39.3 % (35.4-49); HEMOGLOBIN 12.5 GM/dL (11.7-16.9); MCH 28.6 pg (25.7-33.7); MCHC 31.8 g/dl (32.0-35.9); MEAN PLT VOLUME 9.9 fl (7.5-11.1); PLATELET COUNT 152 10^3/uL (134-434); POTASSIUM 3.8 mmol/L (3.5-5.1); RBC 4.37 M/mm3 (4.00-5.60); RDW 16.2 % (11.9-15.9); WHITE BLOOD COUNT 4.4 K/mm3 (4.0-10.0)
[2022-10-26 11:35] LABS: CALCIUM 8.4 mg/dL (8.5-10.1)
[2022-10-26 11:36] LABS: ALBUMIN 3.2 g/dl (3.4-5.0); BLOOD UREA NITROGEN 17.6 mg/dL (7-18)
[2022-10-26 11:39] LABS: CREATININE 0.8 mg/dL (0.55-1.3)
[2022-10-26 11:41] LABS: BILIRUBIN,TOTAL 1.5 mg/dL (0.2-1); TOT PROT 6.1 g/dl (6.4-8.2)
[2022-10-26] MEDS ORDERED: HYDROCHLOROTHIAZIDE 12.5 MG CAPSULE (FP) PO ONE (14:45)
[2022-10-26] MEDS: IBUPROFEN 600 MG TABLET (FP) PO PRN (17:33)
[2022-10-26] MEDS: THIAMINE HCL 100 MG TABLET (FP) PO SCH (22:46)
[2022-10-26] MEDS: AMITRIPTYLINE HCL 25 MG TABLET PO SCH (22:46)
[2022-10-26] MEDS: MELATONIN 5 MG TABLETS PO SCH (22:49)
[2022-10-27] MEDS ORDERED: chlordiazePOXIDE HCL 10 MG CAPSULE PO PRN
[2022-10-27] MEDS: chlordiazePOXIDE HCL 10 MG CAPSULE PO SCH ×4 (05:48→22:16)
[2022-10-27] MEDS: TAMSULOSIN HCL 0.4 MG CAP PO SCH (07:27)
[2022-10-27] MEDS ORDERED: methaDONE HCL 10 MG TABLET (FOR DETOX USE ONLY) PO ONE (10:00)
[2022-10-27] MEDS: HYDROCHLOROTHIAZIDE 12.5 MG CAPSULE (FP) PO SCH (10:49)
[2022-10-27] MEDS: NICOTINE 21 MG/24 HOURS TOPICAL PATCH TD SCH (10:50)
[2022-10-27] MEDS: PRENATAL VITAMINS W/ FOLIC ACID TABLET (FP) PO SCH (10:50)
[2022-10-27] MEDS: THIAMINE HCL 100 MG TABLET (FP) PO SCH (22:16)
[2022-10-27] MEDS: AMITRIPTYLINE HCL 100 MG TABLET PO SCH (22:16)
[2022-10-27] MEDS: MELATONIN 5 MG TABLETS PO SCH (22:17)
[2022-10-28] MEDS ORDERED: chlordiazePOXIDE HCL 25 MG CAPSULE PO ONE (02:33)
[2022-10-28] MEDS: chlordiazePOXIDE HCL 10 MG CAPSULE PO SCH ×2 (05:43→17:23)
[2022-10-28] MEDS: TAMSULOSIN HCL 0.4 MG CAP PO SCH (07:13)
[2022-10-28] MEDS: PRENATAL VITAMINS W/ FOLIC ACID TABLET (FP) PO SCH (11:00)
[2022-10-28] MEDS: HYDROCHLOROTHIAZIDE 12.5 MG CAPSULE (FP) PO SCH (11:00)
[2022-10-28] MEDS: NICOTINE 21 MG/24 HOURS TOPICAL PATCH TD SCH (11:00)
[2022-10-28] MEDS: IBUPROFEN 600 MG TABLET (FP) PO PRN (11:10)
[2022-10-28 12:13] LABS: SGOT/AST 62 U/L (15-37)
[2022-10-28 12:14] LABS: SGPT/ALT 83 U/L (13-61)
[2022-10-28] MEDS: MELATONIN 5 MG TABLETS PO SCH (22:22)
[2022-10-28] MEDS: AMITRIPTYLINE HCL 100 MG TABLET PO SCH (22:22)
[2022-10-28] MEDS: THIAMINE HCL 100 MG TABLET (FP) PO SCH (22:22)
[2022-10-29] MEDS ORDERED: chlordiazePOXIDE HCL 10 MG CAPSULE PO ONE (05:00)
[2022-10-29] MEDS: TAMSULOSIN HCL 0.4 MG CAP PO SCH (07:10)
[2022-10-29] MEDS ORDERED: methaDONE HCL 10 MG TABLET (FOR DETOX USE ONLY) PO ONE (10:00)
[2022-10-29] MEDS: NICOTINE 21 MG/24 HOURS TOPICAL PATCH TD SCH (10:39)
[2022-10-29] MEDS: PRENATAL VITAMINS W/ FOLIC ACID TABLET (FP) PO SCH (10:39)
[2022-10-29] MEDS: HYDROCHLOROTHIAZIDE 12.5 MG CAPSULE (FP) PO SCH (10:39)
[2022-10-29 17:43] VITALS: BP 126/78; PULSE 77; RESP 17; TEMP 98.4
[2022-10-29] MEDS: MELATONIN 5 MG TABLETS PO SCH (23:08)
[2022-10-29] MEDS: THIAMINE HCL 100 MG TABLET (FP) PO SCH (23:08)
[2022-10-29] MEDS: AMITRIPTYLINE HCL 100 MG TABLET PO SCH (23:08)
== END 2022-10-29 17:45 | disposition home or self-care (01) | DRG 897 ==
LOC: YASAS 23:15 → Y6N 10-25 03:18
PROVIDERS: ADMIT Allergy & Immunology; ATTEND Surgery
PROC: HZ2ZZZZ Detoxification Services for Substance Abuse Treatment (ICD-10-PCS; principal; 2022-10-25)
DX: F11.23 Opioid dependence with withdrawal (principal); F19.282 Other psychoactive substance dependence with psychoactive substance-induced sleep disorder; F19.280 Other psychoactive substance dependence with psychoactive substance-induced anxiety disorder; F10.230 Alcohol dependence with withdrawal, uncomplicated; F17.210 Nicotine dependence, cigarettes, uncomplicated; F19.24 Other psychoactive substance dependence with psychoactive substance-induced mood disorder; G47.33 Obstructive sleep apnea (adult) (pediatric); I10 Essential (primary) hypertension; J41.0 Simple chronic bronchitis; M54.50 Low back pain, unspecified; G89.29 Other chronic pain; N40.0 Benign prostatic hyperplasia without lower urinary tract symptoms; R74.8 Abnormal levels of other serum enzymes; E66.9 Obesity, unspecified; Z68.38 Body mass index [BMI] 38.0-38.9, adult
CPT/HCPCS: 36415; 80053; 84450; 84460; 85027; 86780; 87635; 87811

== ENCOUNTER 2023-02-11 03:23 | Inpatient (IN) | payer OTHER ==
[2023-02-11 03:48] VITALS: BMI 36.6
[2023-02-11] MEDS ORDERED: ALBUTEROL SO4 0.083% IH SOL 2.5 MG/3 ML VIAL.NEB. NEB PRN ×2 (04:06→09:03)
[2023-02-11] MEDS ORDERED: NALOXONE HCL 0.4 MG/ML VIAL IM PRN (04:27)
[2023-02-11] MEDS ORDERED: BENZOCAINE/MENTHOL (CHLORASEPTIC ) LOZENGE MM PRN (04:27)
[2023-02-11] MEDS ORDERED: ACETAMINOPHEN 325 MG TABLET (FP) PO PRN (04:27)
[2023-02-11] MEDS ORDERED: POLYETHYLENE GLYCOL (HEALTHYLAX) 3350 17 GM PACKET PO PRN (04:27)
[2023-02-11] MEDS ORDERED: BISMUTH SUBSALICYLATE 524 MG/30 ML PO PRN (04:27)
[2023-02-11] MEDS ORDERED: LOPERAMIDE HCL 2 MG CAPSULE PO PRN (04:27)
[2023-02-11] MEDS ORDERED: NALOXONE HCL (KLOXXADO) 8 MG SPRAY NS PRN (04:27)
[2023-02-11] MEDS ORDERED: MAG HYDROX/AL HYDROX/SIMETH 30 ML UNIT-DOSE CUP PO PRN (04:27)
[2023-02-11] MEDS ORDERED: MAGNESIUM HYDROX 2400MG/30ML ORAL SUSPENSION 30 ML CUP PO PRN (04:27)
[2023-02-11] MEDS ORDERED: NICOTINE POLACRILEX 2 MG GUM BUC PRN (04:27)
[2023-02-11] MEDS ORDERED: MELATONIN 5 MG TABLETS PO PRN (04:27)
[2023-02-11] MEDS ORDERED: BENZONATATE 200 MG CAPSULE PO PRN (04:27)
[2023-02-11] MEDS ORDERED: ONDANSETRON *ODT* 4 MG TABLET SL PRN (04:27)
[2023-02-11] MEDS ORDERED: SIMETHICONE 80 MG TAB.CHEW (FP) PO PRN (06:44)
[2023-02-11] MEDS ORDERED: chlordiazePOXIDE HCL 25 MG CAPSULE PO ONE (07:30)
[2023-02-11] MEDS: TAMSULOSIN HCL 0.4 MG CAP PO SCH (08:09)
[2023-02-11] MEDS: cloNIDine HCL 0.1 MG TABLET PO PRN ×2 (09:16→18:42)
[2023-02-11] MEDS: PRENATAL VITAMINS W/ FOLIC ACID TABLET (FP) PO SCH (10:21)
[2023-02-11] MEDS: chlordiazePOXIDE HCL 25 MG CAPSULE PO SCH ×3 (10:22→22:48)
[2023-02-11] MEDS ORDERED: NICOTINE 21 MG/24 HOURS TOPICAL PATCH TD PRN (11:28)
[2023-02-11] MEDS: BUDESONIDE/FORMETEROL FUMARATE 160/4.5 mcg INHALER IH SCH ×2 (11:52→22:49)
[2023-02-11] MEDS: ALBUTEROL SO4 HFA INHALER IH PRN ×2 (11:59→18:55)
[2023-02-11] MEDS: DOCUSATE SODIUM 100 MG CAPSULE (FP) PO SCH ×2 (13:02→22:48)
[2023-02-11] MEDS: amLODIPine BESYLATE 10 MG TABLET (FP) PO SCH (13:02)
[2023-02-11] MEDS: chlordiazePOXIDE HCL 25 MG CAPSULE PO PRN ×2 (13:03→19:26)
[2023-02-11] MEDS: guaiFENesin 600 MG TABLET.ER (FP) PO PRN ×2 (13:06→18:42)
[2023-02-11] MEDS: P-EPHED 60MG/TRIPROLIDI 2.5MG TABLET PO PRN ×2 (17:23→23:13)
[2023-02-11] MEDS ORDERED: AMITRIPTYLINE HCL 25 MG TABLET PO SCH (22:00)
[2023-02-11] MEDS: THIAMINE HCL 100 MG TABLET (FP) PO SCH (22:48)
[2023-02-12] MEDS: chlordiazePOXIDE HCL 25 MG CAPSULE PO PRN ×2 (02:10→13:37)
[2023-02-12] MEDS: IBUPROFEN 400 MG TABLET (FP) PO PRN ×2 (02:11→16:55)
[2023-02-12] MEDS: chlordiazePOXIDE HCL 25 MG CAPSULE PO SCH ×4 (05:25→22:04)
[2023-02-12] MEDS: DOCUSATE SODIUM 100 MG CAPSULE (FP) PO SCH ×3 (05:25→22:04)
[2023-02-12] MEDS: P-EPHED 60MG/TRIPROLIDI 2.5MG TABLET PO PRN (05:33)
[2023-02-12] MEDS: TAMSULOSIN HCL 0.4 MG CAP PO SCH (08:54)
[2023-02-12] MEDS ORDERED: AMITRIPTYLINE HCL 100 MG TABLET PO SCH (09:23)
[2023-02-12] MEDS: PRENATAL VITAMINS W/ FOLIC ACID TABLET (FP) PO SCH (10:30)
[2023-02-12] MEDS: BUDESONIDE/FORMETEROL FUMARATE 160/4.5 mcg INHALER IH SCH ×2 (10:31→22:06)
[2023-02-12] MEDS: amLODIPine BESYLATE 10 MG TABLET (FP) PO SCH (10:31)
[2023-02-12 11:38] LABS: HEMATOCRIT 36.6 % (35.4-49); HEMOGLOBIN 11.6 GM/dL (11.7-16.9); MCH 28.5 pg (25.7-33.7); MCHC 31.7 g/dl (32.0-35.9); MEAN CELL VOLUME 89.8 fl (80-96); MEAN PLT VOLUME 9.5 fl (7.5-11.1); PLATELET COUNT 175 10^3/uL (134-434); POTASSIUM 3.6 mmol/L (3.5-5.1); RBC 4.08 M/mm3 (4.00-5.60); RDW 17.1 % (11.9-15.9); WHITE BLOOD COUNT 4.6 K/mm3 (4.0-10.0)
[2023-02-12 11:50] LABS: ALBUMIN 3.7 g/dl (3.4-5.0); BILIRUBIN,TOTAL 1.1 mg/dL (0.2-1); BLOOD UREA NITROGEN 12.3 mg/dL (7-18); CALCIUM 9.5 mg/dL (8.5-10.1)
[2023-02-12 11:51] LABS: CREATININE 0.7 mg/dL (0.55-1.3)
[2023-02-12] MEDS: THIAMINE HCL 100 MG TABLET (FP) PO SCH (22:03)
[2023-02-12] MEDS: AMITRIPTYLINE HCL 100 MG TABLET PO SCH (22:04)
[2023-02-13] MEDS: P-EPHED 60MG/TRIPROLIDI 2.5MG TABLET PO PRN ×2 (00:23→22:30)
[2023-02-13] MEDS: chlordiazePOXIDE HCL 25 MG CAPSULE PO PRN (02:09)
[2023-02-13] MEDS: chlordiazePOXIDE HCL 25 MG CAPSULE PO SCH ×4 (05:58→22:28)
[2023-02-13] MEDS: DOCUSATE SODIUM 100 MG CAPSULE (FP) PO SCH (05:59)
[2023-02-13] MEDS: TAMSULOSIN HCL 0.4 MG CAP PO SCH (09:16)
[2023-02-13] MEDS: amLODIPine BESYLATE 10 MG TABLET (FP) PO SCH (10:23)
[2023-02-13] MEDS: BUDESONIDE/FORMETEROL FUMARATE 160/4.5 mcg INHALER IH SCH ×2 (10:23→22:28)
[2023-02-13] MEDS: PRENATAL VITAMINS W/ FOLIC ACID TABLET (FP) PO SCH (10:23)
[2023-02-13] MEDS ORDERED: LACTULOSE 20 GM/30 ML UDC (FOR ORAL USE ONLY) PO ONE (15:00)
[2023-02-13] MEDS: LACTULOSE 20 GM/30 ML UDC (FOR ORAL USE ONLY) PO SCH ×2 (17:26→22:27)
[2023-02-13] MEDS: IBUPROFEN 400 MG TABLET (FP) PO PRN (17:27)
[2023-02-13] MEDS ORDERED: TRIMETHOBENZAMIDE HCL 200MG/2ML INJ IM ONE (19:07)
[2023-02-13] MEDS ORDERED: SENNOSIDES 8.6MG TABLET (FP) PO PRN (22:00)
[2023-02-13] MEDS: AMITRIPTYLINE HCL 100 MG TABLET PO SCH (22:27)
[2023-02-13] MEDS: SENNOSIDES/DOCUSATE COMBO (SENNA PLUS) TABLET (UD) PO SCH (22:27)
[2023-02-13] MEDS: THIAMINE HCL 100 MG TABLET (FP) PO SCH (22:28)
[2023-02-14] MEDS ORDERED: chlordiazePOXIDE HCL 10 MG CAPSULE PO PRN
[2023-02-14] MEDS: chlordiazePOXIDE HCL 10 MG CAPSULE PO SCH ×2 (06:10→10:08)
[2023-02-14] MEDS: TAMSULOSIN HCL 0.4 MG CAP PO SCH (09:04)
[2023-02-14] MEDS: amLODIPine BESYLATE 10 MG TABLET (FP) PO SCH (09:05)
[2023-02-14] MEDS: PRENATAL VITAMINS W/ FOLIC ACID TABLET (FP) PO SCH (09:06)
[2023-02-14] MEDS: BUDESONIDE/FORMETEROL FUMARATE 160/4.5 mcg INHALER IH SCH (09:06)
[2023-02-14] MEDS: SENNOSIDES/DOCUSATE COMBO (SENNA PLUS) TABLET (UD) PO SCH (09:06)
[2023-02-14] MEDS: LACTULOSE 20 GM/30 ML UDC (FOR ORAL USE ONLY) PO SCH (09:07)
[2023-02-14 09:13] VITALS: BP 116/60; PULSE 63; RESP 16; TEMP 97.8
[2023-02-15] MEDS ORDERED: chlordiazePOXIDE HCL 10 MG CAPSULE PO SCH (05:00)
[2023-02-16] MEDS ORDERED: chlordiazePOXIDE HCL 10 MG CAPSULE PO ONE (05:00)
== END 2023-02-14 11:00 | disposition left against medical advice (07) | DRG 894 ==
LOC: YASAS 03:23 → Y6N 04:35
PROVIDERS: ADMIT Allergy & Immunology; ATTEND Allergy & Immunology
PROC: HZ2ZZZZ Detoxification Services for Substance Abuse Treatment (ICD-10-PCS; principal; 2023-02-11)
DX: F10.230 Alcohol dependence with withdrawal, uncomplicated (principal); F11.20 Opioid dependence, uncomplicated; F19.280 Other psychoactive substance dependence with psychoactive substance-induced anxiety disorder; F32.A Depression, unspecified; F19.24 Other psychoactive substance dependence with psychoactive substance-induced mood disorder; I10 Essential (primary) hypertension; J43.0 Unilateral pulmonary emphysema [MacLeod's syndrome]; K59.01 Slow transit constipation; M54.50 Low back pain, unspecified; G89.29 Other chronic pain; Z20.822 Contact with and (suspected) exposure to COVID-19; Z96.653 Presence of artificial knee joint, bilateral
CPT/HCPCS: 36415; 80053; 80307; 82140; 85027; 86780; 87635; 93005; 93010; 94640; Q0162

== ENCOUNTER 2023-04-02 23:39 | Inpatient (IN) | payer OTHER ==
[2023-04-03 00:37] VITALS: BMI 35.6
[2023-04-03] MEDS ORDERED: BENZOCAINE/MENTHOL (CHLORASEPTIC ) LOZENGE MM PRN (01:23)
[2023-04-03] MEDS ORDERED: BENZONATATE 200 MG CAPSULE PO PRN (01:23)
[2023-04-03] MEDS ORDERED: NALOXONE HCL 0.4 MG/ML VIAL IM PRN (01:23)
[2023-04-03] MEDS ORDERED: LOPERAMIDE HCL 2 MG CAPSULE PO PRN (01:23)
[2023-04-03] MEDS ORDERED: BISMUTH SUBSALICYLATE 524 MG/30 ML PO PRN (01:23)
[2023-04-03] MEDS ORDERED: MAGNESIUM HYDROX 2400MG/30ML ORAL SUSPENSION 30 ML CUP PO PRN (01:23)
[2023-04-03] MEDS ORDERED: IBUPROFEN 400 MG TABLET (FP) PO PRN (01:23)
[2023-04-03] MEDS ORDERED: NALOXONE HCL (KLOXXADO) 8 MG SPRAY NS PRN (01:23)
[2023-04-03] MEDS ORDERED: MAG HYDROX/AL HYDROX/SIMETH 30 ML UNIT-DOSE CUP PO PRN (01:23)
[2023-04-03] MEDS ORDERED: NICOTINE POLACRILEX 2 MG GUM BUC PRN (01:23)
[2023-04-03] MEDS ORDERED: IBUPROFEN 600 MG TABLET (FP) PO PRN (01:23)
[2023-04-03] MEDS ORDERED: ONDANSETRON *ODT* 4 MG TABLET SL PRN (01:23)
[2023-04-03] MEDS ORDERED: ACETAMINOPHEN 325 MG TABLET (FP) PO PRN (01:23)
[2023-04-03] MEDS ORDERED: POLYETHYLENE GLYCOL (HEALTHYLAX) 3350 17 GM PACKET PO PRN (01:23)
[2023-04-03] MEDS: PRENATAL VITAMINS W/ FOLIC ACID TABLET (FP) PO SCH (10:22)
[2023-04-03] MEDS: amLODIPine BESYLATE 10 MG TABLET (FP) PO SCH (10:23)
[2023-04-03] MEDS: chlordiazePOXIDE HCL 25 MG CAPSULE PO SCH ×3 (11:35→22:29)
[2023-04-03] MEDS: chlordiazePOXIDE HCL 25 MG CAPSULE PO PRN (15:07)
[2023-04-03] MEDS ORDERED: MELATONIN 5 MG TABLETS PO SCH (22:00)
[2023-04-03] MEDS: AMITRIPTYLINE HCL 100 MG TABLET PO SCH (22:28)
[2023-04-03] MEDS: THIAMINE HCL 100 MG TABLET (FP) PO SCH (22:28)
[2023-04-03] MEDS: TAMSULOSIN HCL 0.4 MG CAP PO SCH (22:28)
[2023-04-03] MEDS: ALBUTEROL SO4 HFA INHALER IH PRN (23:35)
[2023-04-03] MEDS: guaiFENesin 600 MG TABLET.ER (FP) PO PRN (23:50)
[2023-04-04] MEDS: chlordiazePOXIDE HCL 25 MG CAPSULE PO PRN (00:44)
[2023-04-04] MEDS: ALBUTEROL SO4 HFA INHALER IH PRN (01:45)
[2023-04-04] MEDS: chlordiazePOXIDE HCL 25 MG CAPSULE PO SCH ×4 (04:37→22:02)
[2023-04-04] MEDS: amLODIPine BESYLATE 10 MG TABLET (FP) PO SCH (10:29)
[2023-04-04] MEDS: PRENATAL VITAMINS W/ FOLIC ACID TABLET (FP) PO SCH (10:29)
[2023-04-04 11:32] LABS: HEMATOCRIT 35.4 % (35.4-49); HEMOGLOBIN 11.4 GM/dL (11.7-16.9); MCH 29.6 pg (25.7-33.7); MCHC 32.2 g/dl (32.0-35.9); MEAN CELL VOLUME 91.8 fl (80-96); MEAN PLT VOLUME 10.3 fl (7.5-11.1); PLATELET COUNT 88 10^3/uL (134-434); RBC 3.85 M/mm3 (4.00-5.60); RDW 18.5 % (11.9-15.9); WHITE BLOOD COUNT 4.9 K/mm3 (4.0-10.0)
[2023-04-04 11:42] LABS: POTASSIUM 3.1 mmol/L (3.5-5.1)
[2023-04-04] MEDS ORDERED: POTASSIUM CHLORIDE ORAL LIQUID 20 MEQ/15 ML PO ONE (13:37)
[2023-04-04] MEDS ORDERED: LACTULOSE 20 GM/30 ML UDC (FOR ORAL USE ONLY) PO SCH (14:00)
[2023-04-04 15:31] LABS: ALBUMIN 3.6 g/dl (3.4-5.0); BLOOD UREA NITROGEN 13.7 mg/dL (7-18); CALCIUM 9.1 mg/dL (8.5-10.1)
[2023-04-04 15:33] LABS: CREATININE 0.9 mg/dL (0.55-1.3)
[2023-04-04 15:35] LABS: BILIRUBIN,TOTAL 0.6 mg/dL (0.2-1); TOT PROT 6.7 g/dl (6.4-8.2)
[2023-04-04] MEDS: TAMSULOSIN HCL 0.4 MG CAP PO SCH (22:02)
[2023-04-04] MEDS: THIAMINE HCL 100 MG TABLET (FP) PO SCH (22:02)
[2023-04-04] MEDS: AMITRIPTYLINE HCL 100 MG TABLET PO SCH (22:04)
[2023-04-04] MEDS: guaiFENesin 600 MG TABLET.ER (FP) PO PRN (22:09)
[2023-04-05] MEDS: chlordiazePOXIDE HCL 10 MG CAPSULE PO SCH ×4 (05:37→22:45)
[2023-04-05] MEDS: PRENATAL VITAMINS W/ FOLIC ACID TABLET (FP) PO SCH (10:50)
[2023-04-05] MEDS: amLODIPine BESYLATE 10 MG TABLET (FP) PO SCH (10:50)
[2023-04-05] MEDS ORDERED: POTASSIUM CHLORIDE ORAL LIQUID 20 MEQ/15 ML PO ONE ×2 (13:30→15:15)
[2023-04-05] MEDS: AMITRIPTYLINE HCL 100 MG TABLET PO SCH (22:44)
[2023-04-05] MEDS: TAMSULOSIN HCL 0.4 MG CAP PO SCH (22:44)
[2023-04-05] MEDS: THIAMINE HCL 100 MG TABLET (FP) PO SCH (22:45)
[2023-04-05] MEDS: BUDESONIDE/FORMETEROL FUMARATE 160/4.5 mcg INHALER IH SCH (22:45)
[2023-04-06] MEDS ORDERED: chlordiazePOXIDE HCL 10 MG CAPSULE PO PRN
[2023-04-06] MEDS ORDERED: chlordiazePOXIDE HCL 10 MG CAPSULE PO SCH (05:00)
[2023-04-06] MEDS ORDERED: POTASSIUM CHLORIDE ORAL LIQUID 20 MEQ/15 ML PO ONE (09:00)
[2023-04-06 09:34] VITALS: BP 120/76; PULSE 96; RESP 16; TEMP 97
[2023-04-06] MEDS: amLODIPine BESYLATE 10 MG TABLET (FP) PO SCH (09:46)
[2023-04-06] MEDS: PRENATAL VITAMINS W/ FOLIC ACID TABLET (FP) PO SCH (09:46)
[2023-04-06] MEDS: BUDESONIDE/FORMETEROL FUMARATE 160/4.5 mcg INHALER IH SCH (09:47)
[2023-04-07] MEDS ORDERED: chlordiazePOXIDE HCL 10 MG CAPSULE PO ONE (05:00)
== END 2023-04-06 12:40 | disposition home or self-care (01) | DRG 896 ==
LOC: YASAS 23:39 → Y6N 04-03 02:16
PROVIDERS: ADMIT Allergy & Immunology; ATTEND Surgery
PROC: HZ2ZZZZ Detoxification Services for Substance Abuse Treatment (ICD-10-PCS; principal; 2023-04-03)
DX: F10.230 Alcohol dependence with withdrawal, uncomplicated (principal); U07.1 COVID-19; F17.210 Nicotine dependence, cigarettes, uncomplicated; F10.282 Alcohol dependence with alcohol-induced sleep disorder; F10.280 Alcohol dependence with alcohol-induced anxiety disorder; F10.24 Alcohol dependence with alcohol-induced mood disorder; E87.6 Hypokalemia; G47.33 Obstructive sleep apnea (adult) (pediatric); I10 Essential (primary) hypertension; J43.0 Unilateral pulmonary emphysema [MacLeod's syndrome]; K21.9 Gastro-esophageal reflux disease without esophagitis; N40.0 Benign prostatic hyperplasia without lower urinary tract symptoms; Z86.11 Personal history of tuberculosis
CPT/HCPCS: 36415; 80053; 80307; 82140; 84132; 85027; 86780; 87635; 87811; Q0162